=== PATIENT | female | born 1965 | race Caucasian/White ===

== ENCOUNTER → 2016-12-06 | Outpatient (CLI) | payer BC, OTHER ==
[~2016-12-06] MED LIST: CYAN100053 IJ; CYCL10TA45 PO; DOCU-143 PO; FERR-57 PO; FRS325T PO; FURO20TA4 PO; HYDR-3812 PO; HYDR25TA4 PO; LEVO150T6 PO; LEVO200T6 PO; LISI10TA2 PO; LORA10CA PO; METO25TA PO; NAPR-689 PO; PANT40TA PO; POTA10CA43 PO; TRIA1CAP4 PO
--- OUTSIDE RECORDS SUMMARY | 2016-12-06 11:04 | XMS REPORT | Continuity of Care Document ---
Author Author [facility] Organization [facility] Address Unknown Phone Unavailable Support Name Relationship Address Phone MORIAH HERRERA MD Caregiver [address] [address] ESTEPHANIA JOSE Next Of Kin [address] [place] [address] Insurance Providers Payer Name Policy Number Subscriber Name Relationship [facility] [id number] Aimee Chen 18 Self / Same As Patient Self Pay Pending [facility] Apprv [id number] Aimee Chen 18 Self / Same As Patient Advance Directives Directive Response Recorded Date/Time Advance Directives No 11/04/14 8:05am Health Care Power of Director Of Acquisitions No 10/28/14 9:32am Organ Donor Yes 11/04/14 8:05am Resuscitation Status Full Code 11/04/14 8:05am Problems Medical Problems Problem Onset Date Status Gastroesophageal reflux disease Unknown Active Chest pain Unknown Active Medications Medication Dose Route Sig Days/Qty Instructions Order Date Discontinued Date Status Levothyroxine Sodium 200 Mcg PO DAILY 30 Qty 05/29/14 Active Metoprolol Succinate 25 Mg PO BEDTIME 30 Qty 05/29/14 Active Pantoprazole Sodium 40 Mg PO DAILY 30 Qty 05/29/14 Active Potassium Chloride 10 Meq PO DAILY 30 Qty 05/29/14 Active Triamterene/Hydrochlorothiazid 1 Tab PO DAILY 30 Qty 05/29/14 Active Ferrous Sulfate 325 Mg PO DAILY 30 Qty 05/29/14 10/28/14 Discontinued Furosemide (Lasix) 20 Mg PO DAILY 30 Qty 05/29/14 Active Naproxen 1 Tab PO TWICE A DAY 60 Qty 05/29/14 08/17/14 Discontinued Cyclobenzaprine Hcl 10 Mg PO TWICE A DAY 20 Qty 05/29/14 10/28/14 Discontinued Loratadine 10 Mg PO DAILY 10/28/14 Active Social History Social History Problem Response Recorded Date/Time Alcohol Use Occasionally Uses 08/17/2014 8:44am Recreational Drug Use No 08/17/2014 8:44am Recent Foreign Travel No 11/04/2014 8:05am Sexually Transmitted Disease No 08/17/2014 8:44am Hospital Discharge Instructions No hospital discharge instructions. Plan of Care No plan of care. Functional Status Query Response Date Recorded Patient Orientation Person Place Time Situation November 04, 2014 8:10am Allergies, Adverse Reactions, Alerts Allergen Type Severity Reaction Status Last Updated Penicillins ([id number]) Allergy Unknown Active 01/12/09 Sulfa (Sulfonamide Antibiotics) ([id number]) Allergy Unknown Active 15/07 Immunizations No immunization records. Vital Signs Acute Vital Signs Vital Response Date/Time Temperature (Fahrenheit) 98.8 degrees F (97.6 - 99.5) Temperature (Calculated Celsius) 37.63897 degrees C (36.4 - 37.5) Temperature Source Tympanic Pulse Rate (adult) 71 bpm (60 - 90) Respiratory Rate 18 bpm (12 - 24) O2 Sat by Pulse Oximetry 98 % (88 - 100) Blood Pressure 131/80 mm Hg Pain Pain Intensity 3 Height (Feet) 5 feet Height (Inches) 4.00 inches Height (Calculated Centimeters) 162.684558 cm Weight (Pounds) 227 pounds Weight (Calculated Grams) 377858.469 gm Weight (Calculated Kilograms) 102.790651 kilograms Calculated BMI 38.96 Results Laboratory Results Test Name Result Units Flags Reference Collection Date/Time Result Date/ Time Comments White Blood Count 8.6 10^3/uL 4.3-11.0 10/28/2014 10:00am 10/28/2014 10 :17am Red Blood Count 4.66 10^6/uL 4.35-5.85 10/28/2014 10:00am 10/28/2014 10 :17am Hemoglobin 9.6 G/DL L 11.5-16.0 10/28/2014 10:00am 10/28/2014 10:17am Hematocrit 32 % L 35-52 10/28/2014 10:00am 10/28/2014 10:17am Mean Corpuscular Volume 69 FL L 80-99 10/28/2014 10:00am 10/28/2014 10: 17am Mean Corpuscular Hemoglobin 21 PG L 25-34 10/28/2014 10:00am 10/28/2014 10:17am Mean Corpuscular Hemoglobin Concent 30 G/DL L 32-36 10/28/2014 10:00am 10:17am Red Cell Distribution Width 16.6 % H 10.0-14.5 10/28/2014 10:00am 2013 10:17am Platelet Count 427 10^3/uL H 130-400 10/28/2014 10:00am 10/28/2014 10: 17am Mean Platelet Volume 9.2 FL 7.4-10.4 10/28/2014 10:00am 10/28/2014 10: 17am Neutrophils (%) (Auto) 73 % 42-75 10/28/2014 10:00am 10/28/2014 10: 17am Lymphocytes (%) (Auto) 19 % 12-44 10/28/2014 10:00am 10/28/2014 10: 17am Monocytes (%) (Auto) 6 % 0-12 10/28/2014 10:00am 10/28/2014 10:17am Eosinophils (%) (Auto) 2 % 0-10 10/28/2014 10:00am 10/28/2014 10:17am Basophils (%) (Auto) 1 % 0-10 10/28/2014 10:00am 10/28/2014 10:17am Neutrophils # (Auto) 6.3 X 10^3 1.8-7.8 10/28/2014 10:00am 10/28/2014 10:17am Lymphocytes # (Auto) 1.6 X 10^3 1.0-4.0 10/28/2014 10:00am 10/28/2014 10:17am Monocytes # (Auto) 0.5 X 10^3 0.0-1.0 10/28/2014 10:00am 10/28/2014 10: 17am Eosinophils # (Auto) 0.2 10^3/uL 0.0-0.3 10/28/2014 10:00am 10/28/2014 10:17am Basophils # (Auto) 0.1 10^3/uL 0.0-0.1 10/28/2014 10:00am 10/28/2014 10 :17am Sodium Level 135 MMOL/L 135-145 10/28/2014 10:00am 10/28/2014 10:36am Potassium Level 3.9 MMOL/L 3.6-5.0 10/28/2014 10:00am 10/28/2014 10: 36am Chloride Level 100 MMOL/L 98-107 10/28/2014 10:00am 10/28/2014 10:36am Carbon Dioxide Level 27 MMOL/L 21-32 10/28/2014 10:00am 10/28/2014 10: 36am Blood Urea Nitrogen 12 MG/DL 7-18 10/28/2014 10:00am 10/28/2014 10: 36am Creatinine 0.84 MG/DL 0.60-1.30 10/28/2014 10:00am 10/28/2014 10:36am BUN/Creatinine Ratio 14 10/28/2014 10:00am 10/28/2014 10:36am Estimat Glomerular Filtration Rate > 60 10/28/2014 10:00am 2013 10:36am GFR INTERPRETIVE DATA UNITS FOR ESTIMATED GFR (eGFR): mL/min/1.73 M2 REFERENCE RANGE FOR ESTIMATED GFR (eGFR) eGFR NORMAL eGFR >60 MODERATELY DECREASED eGFR 30-59 SEVERLY DECREASED eGFR 15-29 KIDNEY FAILURE <15 (OR DIALYSIS) Glucose Level 93 MG/DL 70-105 10/28/2014 10:00am 10/28/2014 10:36am Calcium Level 8.9 MG/DL 8.5-10.1 10/28/2014 10:00am 10/28/2014 10:36am Procedures No known history of procedures. Encounters Encounter Location Date/Time Registered Clinic Via [facility] 11/04/14 7:41am Registered Clinic Via [facility] 10/28/14 9:28am Registered Clinic Via [facility] 10/14/14 7:57am Registered Clinic Via [facility] 10/07/14 12:27pm Registered Clinic Via [facility] 10/07/14 8:46am Discharged Recurring Via [facility] 09/30/14 2:09pm
--- NOTE | 2016-12-06 12:09 | Diagnostic Imaging Report ---
EXAMINATION: Right breast ultrasound. INDICATION: Followup right breast mass. COMPARISON: 10/05/2015. FINDINGS: At the 9 o'clock zone 5 cm from the nipple, there is a hypoechoic mass with solid and cystic components. It measures 2.5 x 1.4 x 1.9 cm. This compares to measurements of 2 x 1.5 x 1.3 cm on the prior study of 10/05/2015. There is an adjacent nodule abutting it measuring 5 mm, similar to the prior study. There is also a hypoechoic lesion seen at the 7 o'clock zone 5 cm from the nipple measuring 6 mm in size with increased through transmission and no internal vascularity. This may relate to a complicated cyst. In the axilla, there is a slightly prominent lymph node with a preserved fatty hilum measuring up to 2.3 x 0.9 x 1.2 cm, probably a reactive benign lymph node. IMPRESSION: 1. There is a 2.5 cm right breast mass at the 9 o'clock zone which has enlarged from the prior exam. 2. Hypoechoic lesion measuring 6 mm at the 7 o'clock zone, possibly a complicated cyst. 3. The Pathology report from the needle biopsy performed on the dominant lesion found densely fibrous breast tissue which is a nonspecific diagnosis. A repeat biopsy or surgical excision would be recommended given the enlargement and nonspecific pathologic results. 4. The findings and recommendations were discussed with the patient at the time of the exam. The report was also faxed to Dr. Chiang' office by PARMJIT at 12:10 PM. ACR BI-RADS Category 4: Suspicious abnormality. Dictated by: Dictated on workstation # [id number]
--- NOTE | 2016-12-06 19:56 | Diagnostic Imaging Report ---
EXAMINATION: Bilateral breast digital diagnostic mammogram with CAD. The current study was also evaluated with a Computer Aided Detection (CAD) system. INDICATION: 10/04/15. FINDINGS: The breasts are composed of heterogenously dense parenchyma which may decrease mammographic sensitivity. Previously biopsied lesion in the outer aspect of the right breast is again noted with a biopsy clip seen. Overlying parenchyma is better on the MLO view with no definitive change. The left breast demonstrates a smoothly marginated mass stable from , compatible with benign etiology. IMPRESSION: No definite change in lateral right breast mass. Ultrasound followup is pending. ACR BI-RADS Category 0: Incomplete. (Needs additional imaging evaluation). Result letter will be mailed to the patient. Note: At least 10% of breast cancer is not imaged by mammography. Dictated by: Dictated on workstation # [id number]
== END ==
LOC: RAD 11:00
PROVIDERS: ATTEND Family Medicine
DX: R92.8 Other abnormal and inconclusive findings on diagnostic imaging of breast (principal)
CPT/HCPCS: 77066

== ENCOUNTER 2016-12-22 09:56 | Outpatient (CLI) | payer BC ==
[~2016-12-22] VITALS: Ht 162.6 cm; Wt 98.5 kg
[~2016-12-22 09:56] MED LIST changes: -DOCU-143 PO; -HYDR-3812 PO; -HYDR25TA4 PO; -LEVO150T6 PO
--- OUTSIDE RECORDS SUMMARY | 2016-12-22 10:00 | XMS REPORT | Continuity of Care Document ---
Author Author [facility] Organization [facility] Address Unknown Phone Unavailable Support Name Relationship Address Phone MORIAH HERRERA MD Caregiver [address] [address] ESTEPHANIA JOSE Next Of Kin [address] [place] [address] Insurance Providers Payer Name Policy Number Subscriber Name Relationship [facility] [id number] Aimee Chen 18 Self / Same As Patient Self Pay Pending [facility] Apprv [id number] Aimee Chen 18 Self / Same As Patient Advance Directives Directive Response Recorded Date/Time Advance Directives No 11/04/14 8:05am Health Care Power of Ev[employer] Business [employer] No 10/28/14 9:32am Organ Donor Yes 11/04/14 [...] Type Severity Reaction Status Last Updated Penicillins ([id number]) Allergy Unknown Active 01/12/09 Sulfa (Sulfonamide Antibiotics) ([id number]) Allergy Unknown Active 15/07 Immunizations No immunization records. Vital Signs Acute Vital Signs Vital Response Date/Time Temperature (Fahrenheit) 98.8 degrees F (97.6 - 99.5) Temperature (Calculated Celsius) 37.28793 degrees C (36.4 - 37.5) Temperature Source Tympanic Pulse Rate (adult) 71 bpm (60 - 90) Respiratory Rate 18 bpm (12 - 24) O2 Sat by Pulse Oximetry 98 % (88 - 100) Blood Pressure 131/80 mm Hg Pain Pain Intensity 3 Height (Feet) 5 feet Height (Inches) 4.00 inches Height (Calculated Centimeters) 162.234554 cm Weight (Pounds) 227 pounds Weight (Calculated Grams) 995785.469 gm Weight (Calculated Kilograms) 102.781626 kilograms Calculated BMI 38.96 Results Laboratory Results [...] Encounters Encounter Location Date/Time Registered Clinic Via [facility] 11/04/14 7:41am Registered Clinic Via [facility] 10/28/14 9:28am Registered Clinic Via [facility] 10/14/14 7:57am Registered Clinic Via [facility] 10/07/14 12:27pm Registered Clinic Via [facility] 10/07/14 8:46am Discharged Recurring Via [facility] 09/30/14 2:09pm
[2016-12-22 10:04] VITALS: BP 117/68
[2016-12-22] MEDS ORDERED: HYDR25TA4 PO (10:09)
[2016-12-22] MEDS ORDERED: LEVO150T6 PO (10:09)
[2016-12-22 10:33] LABS: BASOPHILS # (AUTO) 0.1 10^3/uL (0.0-0.1); BASOPHILS % (AUTO) 1 % (0-10); EOSINOPHILS # (AUTO) 0.2 10^3/uL (0.0-0.3); EOSINOPHILS % (AUTO) 3 % (0-10); LYMPHOCYTES # (AUTO) 1.4 X 10^3 (1.0-4.0); LYMPHOCYTES % (AUTO) 21 % (12-44); MEAN CORPUSCULAR HEMOGLOBIN 19 PG (25-34); MEAN CORPUSCULAR HGB CONC 29 G/DL (32-36); MEAN CORPUSCULAR VOLUME 64 FL (80-99); MEAN PLATELET VOLUME 9.6 FL (7.4-10.4); MONOCYTES # (AUTO) 0.5 X 10^3 (0.0-1.0); MONOCYTES % (AUTO) 8 % (0-12); NEUTROPHILS # (AUTO) 4.6 X 10^3 (1.8-7.8); NEUTROPHILS % (AUTO) 68 % (42-75); PLATELET COUNT 426 10^3/uL (130-400); RED BLOOD COUNT 4.51 10^6/uL (4.35-5.85); WHITE BLOOD COUNT 6.7 10^3/uL (4.3-11.0)
== END 2016-12-22 10:25 | disposition home or self-care (01) ==
LOC: PREOP 09:56
PROVIDERS: ATTEND Surgery
DX: Z01.812 Encounter for preprocedural laboratory examination (principal); Z11.2 Encounter for screening for other bacterial diseases; N63 Unspecified lump in breast
CPT/HCPCS: 36415; 85025; 87081

== ENCOUNTER 2016-12-28 07:52 | Day surgery (SDC) | payer BC, OTHER ==
[~2016-12-28] VITALS: Ht 162.6 cm; Wt 98.5 kg
[~2016-12-28 07:52] MED LIST changes: +HYDR25TA4 PO; +LEVO150T6 PO
--- OUTSIDE RECORDS SUMMARY | 2016-12-28 07:56 | XMS REPORT | Continuity of Care Document ---
Author Author [facility] Organization [facility] Address Unknown Phone Unavailable Support Name Relationship Address Phone MORIAH HERRERA MD Caregiver [address] [address] ESTEPHANIA JOSE Next Of Kin [address] [place] [address] Insurance Providers Payer Name Policy Number Subscriber Name Relationship [facility] [id number] Aimee Chen 18 Self / Same As Patient Self Pay Pending [facility] Apprv [id number] Aimee Chen 18 Self / Same As Patient Advance Directives Directive Response Recorded Date/Time Advance Directives No 11/04/14 8:05am Health Care Power of Rn Hemodialysis No 10/28/14 9:32am Organ Donor Yes 11/04/14 [...] Type Severity Reaction Status Last Updated Penicillins ([id number]) Allergy Unknown Active 01/12/09 Sulfa (Sulfonamide Antibiotics) ([id number]) Allergy Unknown Active 15/07 Immunizations No immunization records. Vital Signs Acute Vital Signs Vital Response Date/Time Temperature (Fahrenheit) 98.8 degrees F (97.6 - 99.5) Temperature (Calculated Celsius) 37.72730 degrees C (36.4 - 37.5) Temperature Source Tympanic Pulse Rate (adult) 71 bpm (60 - 90) Respiratory Rate 18 bpm (12 - 24) O2 Sat by Pulse Oximetry 98 % (88 - 100) Blood Pressure 131/80 mm Hg Pain Pain Intensity 3 Height (Feet) 5 feet Height (Inches) 4.00 inches Height (Calculated Centimeters) 162.698050 cm Weight (Pounds) 227 pounds Weight (Calculated Grams) 196885.469 gm Weight (Calculated Kilograms) 102.725850 kilograms Calculated BMI 38.96 Results Laboratory Results [...] Encounters Encounter Location Date/Time Registered Clinic Via [facility] 11/04/14 7:41am Registered Clinic Via [facility] 10/28/14 9:28am Registered Clinic Via [facility] 10/14/14 7:57am Registered Clinic Via [facility] 10/07/14 12:27pm Registered Clinic Via [facility] 10/07/14 8:46am Discharged Recurring Via [facility] 09/30/14 2:09pm
[2016-12-28] MEDS ORDERED: LIDOCAINE 1% INJ 20 ML (XYLOCAINE) VIAL ONE ×2 (07:58→09:48)
--- OUTSIDE RECORDS SUMMARY | 2016-12-28 07:58 | XMS REPORT | Continuity of Care Document ---
Author Author [facility] Organization [facility] Address Unknown Phone Unavailable Support Name Relationship Address Phone MORIAH HERRERA MD Caregiver [address] [address] [place]IA JOSE Next Of Kin [address] [place] [address] Insurance Providers Payer Name Policy Number Subscriber Name Relationship [facility] [id number] Aimee Chen 18 Self / Same As Patient Self Pay Pending [facility] Apprv [id number] Aimee Chen 18 Self / Same As Patient Advance Directives Directive Response Recorded Date/Time Advance Directives No 11/04/14 8:05am Health Care Power of Mailmaster No 10/28/14 9:32am Organ Donor Yes 11/04/14 [...] Type Severity Reaction Status Last Updated Penicillins ([id number]) Allergy Unknown Active 01/12/09 Sulfa (Sulfonamide Antibiotics) ([id number]) Allergy Unknown Active 15/07 Immunizations No immunization records. Vital Signs Acute Vital Signs Vital Response Date/Time Temperature (Fahrenheit) 98.8 degrees F (97.6 - 99.5) Temperature (Calculated Celsius) 37.66474 degrees C (36.4 - 37.5) Temperature Source Tympanic Pulse Rate (adult) 71 bpm (60 - 90) Respiratory Rate 18 bpm (12 - 24) O2 Sat by Pulse Oximetry 98 % (88 - 100) Blood Pressure 131/80 mm Hg Pain Pain Intensity 3 Height (Feet) 5 feet Height (Inches) 4.00 inches Height (Calculated Centimeters) 162.412788 cm Weight (Pounds) 227 pounds Weight (Calculated Grams) 756973.469 gm Weight (Calculated Kilograms) 102.261979 kilograms Calculated BMI 38.96 Results Laboratory Results [...] Encounters Encounter Location Date/Time Registered Clinic Via [facility] [address] 11/04/14 7:41am Registered Clinic Via [facility] [address] 10/28/14 9:28am Registered Clinic [facility] [address] 10/14/14 7:57am Registered Clinic [facility] [address] 10/07/14 12:27pm Registered Clinic Via [facility] [address] 10/07/14 8:46am Discharged Recurring Via [facility] [address] 09/30/14 2:09pm
[2016-12-28] MEDS ORDERED: LACTATED RINGERS 1,000 ML IV PRN (08:25)
[2016-12-28 08:30] VITALS: BP 120/78
[2016-12-28] MEDS ORDERED: CLINDAMYCIN 600 MG/50 ML IVPB 50 ML IV ONE ×2 (08:51→09:15)
--- NOTE | 2016-12-28 08:58 | Progress Note-Pre Operative ---
Pre-Operative Progress Note H&P Reviewed The H&P was reviewed, patient examined and no changes noted. Date H&P Reviewed: Dec 28, 2016 Time H&P Reviewed: 08:58 Pre-Operative Diagnosis: right breast mass ERLINDA STOVALL DO Dec 28, 2016 8:58 am
[2016-12-28] MEDS ORDERED: LIDOCAINE 1% INJ 20 ML (XYLOCAINE) VIAL INJ ONE (09:15)
[2016-12-28] MEDS ORDERED: fentaNYL INJECTION 100 MCG/2 ML AMP ONE (09:45)
[2016-12-28] MEDS ORDERED: proPOfol 200 MG/20 ML (DIPRIVAN) VIAL IV ONE (09:45)
[2016-12-28] MEDS ORDERED: LACTATED RINGERS 1,000 ML IV ONE ×2 (09:45→11:03)
[2016-12-28] MEDS ORDERED: MIDAZOLAM 2 MG/2 ML (VERSED) VIAL ONE (09:45)
[2016-12-28] MEDS ORDERED: LIDOCAINE PF 2% 10 ML (XYLOCAINE) AMP ONE (09:45)
[2016-12-28] MEDS ORDERED: ONDANSETRON 4 MG/2 ML (SDV) Z0FRAN ONE (09:45)
[2016-12-28] MEDS ORDERED: SEVOFLURANE (ULTANE) 15 ML INHAL SOLN ONE ×4 (09:45→11:03)
[2016-12-28] MEDS ORDERED: BUPIVACAINE 0.5% 30 ML (SENSORCAINE) VIAL ONE (09:48)
--- NOTE | 2016-12-28 10:40 | Diagnostic Imaging Report ---
PROCEDURE: Ultrasound-guided hookwire needle localization of breast mass . INDICATION: Right breast mass. CONSENT: Informed consent was obtained from the patient. The risks, benefits, potential complications and alternatives were reviewed and all questions answered to the patient's satisfaction. FINDINGS: Ultrasound images demonstrate a right breast mass. It is at 9:00 zone 5 cm from the nipple. PROCEDURE: After sterile preparation and draping, 1% lidocaine was utilized for local anesthesia. A hookwire introducer needle was advanced under live ultrasound guidance to the level of the lesion from a lateral to medial approach. Good needle position was documented with ultrasound images. The hookwire was deployed and the needle withdrawn, simultaneously. The patient tolerated the procedure well with no immediate complications. IMPRESSION: Successful ultrasound hookwire needle localization of 9:00 breast mass. Dictated by: Dictated on workstation # [id number]
--- NOTE | 2016-12-28 10:54 | Diagnostic Imaging Report ---
EXAMINATION: Specimen radiograph of breast lumpectomy biopsy post hookwire needle localization placement. INDICATION: Check adequacy of right breast hookwire guided excisional biopsy. FINDINGS: The mass and adjacent biopsy clip of interest appears to be present in the specimen and therefore the specimen is considered adequate. IMPRESSION: Specimen radiograph demonstrates the hookwire and surrounding specimen that appears to contain right breast mass. Pathology is pending. Dictated by: Dictated on workstation # [id number]
[2016-12-28] MEDS ORDERED: HYDR-3812 PO (11:04)
[2016-12-28] MEDS ORDERED: DOCU-143 PO (11:04)
[2016-12-28] MEDS ORDERED: morphine INJ 10 MG/ML 1ML (SYR OR VIAL) ONE (11:04)
--- NOTE | 2016-12-28 11:07 | Discharge Inst-Simple/Standard ---
Discharge Inst-Standard Discharge Medications New, Converted or Re-Newed RX: RX on Chart Patient Instructions/Follow Up Plan of Care/Instructions/FU: follow up with Dr. Wu in 2 weeks. Take medication as directed. Activity as Tolerated: No Discharge Diet: No Restrictions Other Inst to Patient Follow up Appt: Make appointment for 2 weeks. Instructions: No lifting greater than 10 pounds. No strenuous activity. May shower in 24 hours, no tub bath or soaking. Use incentive spirometer at home as directed. No Smoking Skin/Wound Care: May remove bandages. You need to leave the glue over incision on they will fall off on their own. Symptoms to Report: Appetite Changes, Extremity Discoloration, Numbness/Tingling, Swelling Increased , Bleeding Excessive, Eyesight Changes, Pain Increased, Urine Color Change, Constipation(Persistent), Fever over 101 degree F, Pain/Pressure in chest, Urinating Difficulty, Cough Up/Vomit Blood, Heart Beat Irreg/Pounding, Pain/ Pressure in jaw, Vaginal Bleeding Increase, Cramps in feet or legs, Lightheadedness, Pain/Pressure in shoulder, Diarrhea(Persistent), Memory Changes Suddenly, Questions/Concerns, Weight gain consecutive days, Dizziness/ Fainting, Nausea/Vomiting, Shortness of Breath, Weight gain over 2 pounds If questions or concerns contact your physician Or seek help at emergency department. TIRSO JARVIS APRN Dec 28, 2016 11:07
--- NOTE | 2016-12-28 11:14 | Progress Note-Post Operative ---
Post-Operative Progess Note Ndt Inspector Obbala Nwagwu Pre-Operative Diagnosis right breast mass Post-Operative Diagnosis breast mass x 2 Post-Op Procedure Note Date of Procedure: Dec 28, 2016 Name of Procedure: excisional biopsy wire localized right breast and excisional biopsy x 1 right breast Procedure Note/Findings see note Anesthesia Type gen Estimated blood loss (mL): minimal Specimen(s) collected right breast mass and wire x 1 right breast mass ERLINDA STOVALL DO Dec 28, 2016 11:14 am
[2016-12-28 11:55] VITALS: BP 133/78
[2016-12-28 12:25] VITALS: BP 126/80
[2016-12-28 12:55] VITALS: BP 130/78
[2016-12-28 13:10] VITALS: BP 125/78
--- NOTE | 2016-12-28 20:34 | Diagnostic Imaging Report ---
EXAMINATION: Right breast diagnostic mammogram. The current study was also evaluated with a Computer Aided Detection (CAD) system. INDICATION: Right breast mass. FINDINGS: There is a right breast mass with a wire localization placed through it in good position. IMPRESSION: The wire needle localization is in good position through the lateral mid depth right breast mass. Dictated by: Dictated on workstation # [id number]
--- NOTE | 2016-12-29 13:33 | OPERATIVE REPORT ---
PROCEDURE PHYSICIAN: ERLINDA STOVALL DATE OF PROCEDURE: 12/28/2016 PREOPERATIVE DIAGNOSIS: Right breast mass. POSTOPERATIVE DIAGNOSIS: Right breast mass. POSTOPERATIVE DIAGNOSIS: Breast mass x2. PROCEDURE: 1. Excisional biopsy wire localized right breast. 2. Excisional biopsy x1, right breast. ANESTHESIA: General. ESTIMATED BLOOD LOSS: Minimal. COMPLICATIONS: None. RADIO FREQUENCY ENGINEER: Michael Whitfield who assisted in retraction, dissection, and closure. ESTIMATED BLOOD LOSS: Minimal. COMPLICATIONS: None. INDICATIONS: The patient is a 51-year-old female who has had right breast mass that has been continued be followed and previously biopsied. There is slight change. The patient was offered interventional radiology biopsy or excisional biopsy. The patient wished to proceed with excisional biopsy wire localized. She understands the risks and benefits of the procedure and wished to proceed with the procedure. Consent was signed on the chart. PROCEDURE: The patient was taken to operating suite. After having wire localization. She was taken the operating suite. She was prepped and draped in sterile fashion. A surgical pause was performed. A local anesthetic of 0.5% Marcaine and 1% lidocaine at 50:50 ratio was used to anesthetize the area. The skin incision was made and the wire was then incorporated into the incision. Cautery dissection and blunt dissection was used to dissect around the wire down to the mass which then was dissected around completely removing the mass and the wire in its entirety. This was then sent to radiology which confirmed removal of the wire and mass. The area was then palpated inferiorly. In the wound, there is a small palpable mass that almost felt cystic. It is approximately a centimeter in diameter, which cautery dissection was used to dissect around it removing it in its entirety. This was sent with pathology. The wound was then irrigated with sterile water. Hemostasis had been achieved. The subcutaneous tissues were then reapproximated using 3-0 Vicryl. Skin was then closed using 4-0 Vicryl in a running subcuticular fashion. The area was then washed and dried. A total of 20 mL of 0.5% Marcaine and 1% lidocaine at 50:50 ratio was used to anesthetize the area. Dermabond was then placed over the incision. The patient tolerated the procedure well without any complications. She was taken to recovery room in stable condition. Job ID: [id number] Dictated Date: 12/28/2016 11:18:47 Ready To Wear Department Manager Date: 12/29/2016 12:57:31 / dennis
== END 2016-12-28 13:05 | disposition home or self-care (01) ==
LOC: RAD 07:52
PROVIDERS: ATTEND Surgery
DX: N60.91 Unspecified benign mammary dysplasia of right breast (principal)
CPT/HCPCS: 19285; 76098; 84703; 88305

== ENCOUNTER → 2017-05-09 | Outpatient (CLI) | payer BC, OTHER ==
[~2017-05-09] MED LIST changes: +DOCU-143 PO; +HYDR-3812 PO
== END ==
LOC: CARD 13:17
PROVIDERS: ATTEND Internal Medicine Cardiovascular Disease
DX: R06.09 Other forms of dyspnea (principal); R00.2 Palpitations; I49.3 Ventricular premature depolarization; G47.33 Obstructive sleep apnea (adult) (pediatric)
CPT/HCPCS: 93306

== ENCOUNTER 2017-06-22 11:41 | Outpatient (RCR) | payer BC, OTHER ==
[~2017-06-22 11:41] MED LIST changes: +DEXAMETHASONE 4 MG/ML SYR (FOR IONTOPHORESIS) TOP SCH
[2017-07-11] MEDS ORDERED: METO-270 PO (11:05)
[2017-07-11] MEDS ORDERED: OMEP40CA36 PO (11:05)
[2017-07-19] MEDS ORDERED: DOCU100C37 PO (17:57)
[2017-07-19] MEDS ORDERED: IBUP-1773 PO (17:57)
[2017-07-19] MEDS ORDERED: SIME80TA16 PO (17:57)
[2017-07-19] MEDS ORDERED: HYDR-3816 PO (17:57)
[2017-07-20] MEDS ORDERED: CEPH-507 PO (08:43)
== END 2017-07-26 | disposition home or self-care (01) ==
PROVIDERS: ATTEND Family Medicine
DX: M77.01 Medial epicondylitis, right elbow (principal); M77.02 Medial epicondylitis, left elbow

== ENCOUNTER 2017-06-25 10:11 | Outpatient (RCR) | payer BC ==
[2017-05-14 14:01] LABS: BASOPHILS # (AUTO) 0.1 10^3/uL (0.0-0.1); BASOPHILS % (AUTO) 1 % (0-10); EOSINOPHILS # (AUTO) 0.2 10^3/uL (0.0-0.3); EOSINOPHILS % (AUTO) 3 % (0-10); LYMPHOCYTES # (AUTO) 1.8 X 10^3 (1.0-4.0); LYMPHOCYTES % (AUTO) 26 % (12-44); MEAN CORPUSCULAR HEMOGLOBIN 17 PG (25-34); MEAN CORPUSCULAR HGB CONC 27 G/DL (32-36); MEAN CORPUSCULAR VOLUME 62 FL (80-99); MEAN PLATELET VOLUME 9.5 FL (7.4-10.4); MONOCYTES # (AUTO) 0.7 X 10^3 (0.0-1.0); MONOCYTES % (AUTO) 10 % (0-12); NEUTROPHILS % (AUTO) 61 % (42-75); PLATELET COUNT 451 10^3/uL (130-400); RED BLOOD COUNT 4.33 10^6/uL (4.35-5.85); RED CELL DISTRIBUTION WIDTH 20.6 % (10.0-14.5); WHITE BLOOD COUNT 6.7 10^3/uL (4.3-11.0)
[2017-05-14 14:08] LABS: ALANINE AMINOTRANSFERASE 18 U/L (0-55); ALBUMIN 3.8 GM/DL (3.2-4.5); ANION GAP 8 MMOL/L (5-14); ASPARTATE AMINO TRANSFERASE 15 U/L (5-34); BILIRUBIN,TOTAL 0.3 MG/DL (0.1-1.0); BLOOD UREA NITROGEN 8 MG/DL (7-18); BUN/CREATININE RATIO 9; CALCIUM 8.9 MG/DL (8.5-10.1); CARBON DIOXIDE 28 MMOL/L (21-32); CHLORIDE 102 MMOL/L (98-107); CREATININE SERUM 0.92 MG/DL (0.60-1.30); GFR ESTIMATED > 60; GLUCOSE 90 MG/DL (70-105); POTASSIUM 3.6 MMOL/L (3.6-5.0); SODIUM 138 MMOL/L (135-145); TOTAL PROTEIN 7.1 GM/DL (6.4-8.2)
[2017-05-16 15:32] LABS: %SAT TOTAL IRON BINDING CAPIC 2 % (15-50); TIBC <429 ug/dL (280-380)
[2017-05-17 06:40] LABS: FERRITIN <1.0 ng/mL (15.0-150.0); UIBC 419 ug/dL
[~2017-06-25 10:11] MED LIST changes: -CEPH-507 PO; -DOCU100C37 PO; +FERRIC CARBOXYMALTOSE (CANCER) 750 MG in NS (IVPB) 250 ML IV SCH; -HYDR-3816 PO; -IBUP-1773 PO; -METO-387 PO; -OMEP40CA36 PO; -REGADENOSON 0.4 MG/5 ML SYR (LEXISCAN) IV ONE; -SIME80TA16 PO
[2017-06-25 10:37] LABS: BASOPHILS % (AUTO) 1 % (0-10); EOSINOPHILS # (AUTO) 0.1 10^3/uL (0.0-0.3); EOSINOPHILS % (AUTO) 2 % (0-10); LYMPHOCYTES # (AUTO) 1.5 X 10^3 (1.0-4.0); LYMPHOCYTES % (AUTO) 23 % (12-44); MEAN CORPUSCULAR HEMOGLOBIN 24 PG (25-34); MEAN CORPUSCULAR HGB CONC 32 G/DL (32-36); MEAN CORPUSCULAR VOLUME 76 FL (80-99); MEAN PLATELET VOLUME 9.7 FL (7.4-10.4); MONOCYTES # (AUTO) 0.6 X 10^3 (0.0-1.0); MONOCYTES % (AUTO) 9 % (0-12); NEUTROPHILS # (AUTO) 4.2 X 10^3 (1.8-7.8); NEUTROPHILS % (AUTO) 66 % (42-75); PLATELET COUNT 250 10^3/uL (130-400); RED BLOOD COUNT 5.58 10^6/uL (4.35-5.85); WHITE BLOOD COUNT 6.4 10^3/uL (4.3-11.0)
[2017-06-25 10:59] LABS: ALANINE AMINOTRANSFERASE 49 U/L (0-55); ALBUMIN 4.2 GM/DL (3.2-4.5); ANION GAP 14 MMOL/L (5-14); ASPARTATE AMINO TRANSFERASE 26 U/L (5-34); BILIRUBIN,TOTAL 0.5 MG/DL (0.1-1.0); BLOOD UREA NITROGEN 12 MG/DL (7-18); BUN/CREATININE RATIO 14; CALCIUM 9.3 MG/DL (8.5-10.1); CARBON DIOXIDE 22 MMOL/L (21-32); CHLORIDE 103 MMOL/L (98-107); CREATININE SERUM 0.87 MG/DL (0.60-1.30); GFR ESTIMATED > 60; GLUCOSE 110 MG/DL (70-105); POTASSIUM 3.2 MMOL/L (3.6-5.0); SODIUM 139 MMOL/L (135-145); TOTAL PROTEIN 7.8 GM/DL (6.4-8.2)
[2017-07-11] MEDS ORDERED: METO-270 PO (11:05)
[2017-07-11] MEDS ORDERED: OMEP40CA36 PO (11:05)
[2017-07-19] MEDS ORDERED: HYDR-3816 PO (17:57)
[2017-07-19] MEDS ORDERED: DOCU100C37 PO (17:57)
[2017-07-19] MEDS ORDERED: SIME80TA16 PO (17:57)
[2017-07-19] MEDS ORDERED: IBUP-1773 PO (17:57)
[2017-07-20] MEDS ORDERED: CEPH-507 PO (08:43)
== END 2017-07-28 | disposition home or self-care (01) ==
LOC: ONC 10:11
PROVIDERS: ATTEND Internal Medicine Hematology & Oncology
DX: D50.9 Iron deficiency anemia, unspecified (principal); K21.9 Gastro-esophageal reflux disease without esophagitis; D25.9 Leiomyoma of uterus, unspecified; E03.9 Hypothyroidism, unspecified; R06.09 Other forms of dyspnea; E66.9 Obesity, unspecified; D47.3 Essential (hemorrhagic) thrombocythemia
CPT/HCPCS: 36415; 80053; 82728; 83540; 85025; 96365; 99213; 99214

== ENCOUNTER → 2017-06-25 | Outpatient (CLI) | payer BC, OTHER ==
[~2017-06-25] VITALS: Ht 162.6 cm; Wt 98.9 kg
[~2017-06-25] MED LIST changes: +CEPH-507 PO; -DEXAMETHASONE 4 MG/ML SYR (FOR IONTOPHORESIS) TOP SCH; +DOCU100C37 PO; +HYDR-3816 PO; +IBUP-1773 PO; +METO-387 PO; +OMEP40CA36 PO; +REGADENOSON 0.4 MG/5 ML SYR (LEXISCAN) IV ONE; +SIME80TA16 PO
[2017-06-25] MEDS: CATHETER FLUSH 10 ML SYR IV PRN ×2 (07:54→09:10)
[2017-06-25 09:09] VITALS: BP 137/72
--- NOTE | 2017-06-26 09:41 | STRESS TEST ---
DATE OF SERVICE: 06/25/2017 LEXISCAN MYOVIEW STRESS TEST REPORT REFERRING PHYSICIAN: Dr. Sayra Chiang. Baseline heart rate is 60. Baseline blood pressure is 137/72. Baseline EKG is sinus rhythm with ventricular trigeminy. IN SUMMARY: The patient was injected with 10.11 mCi of technetium-99 Myoview and the resting images were obtained. Then, the patient received 0.4 mg of Lexiscan followed by 31.5 mCi of technetium-99 Myoview. Throughout the test, there were no EKG changes. The resting and stress images were reviewed and compared in the short axis, horizontal long axis, and vertical long axis views. Review of the images showed breast attenuation with mild decreased uptake at the anteroapical segment with no significant reversibility. SSS is 1, SDS 1, TID value 0.92. On the gated images, the left ventricle appeared to be normal size with normal contractility. Calculated ejection fraction 62%. CONCLUSION: 1. The patient tolerated Lexiscan well. 2. Breast attenuation with typical female pattern with no significant ischemia or infarction on SPECT images. 3. Normal left ventricular size with normal contractility. Calculated ejection fraction 62%. 4. Baseline sinus rhythm with ventricular trigeminy noted throughout test. Job ID: [id number] DocumentID: [id number] Dictated Date: 06/25/2017 18:34:11 Radio Interference Supervisor Date: 06/26/2017 06:34:33 Dictated By: TEMITOPE CHING MD
== END ==
LOC: CARD 07:29
PROVIDERS: ATTEND Internal Medicine Cardiovascular Disease
DX: R06.09 Other forms of dyspnea (principal); R00.2 Palpitations; I49.3 Ventricular premature depolarization; G47.33 Obstructive sleep apnea (adult) (pediatric)
CPT/HCPCS: 78452; 93017

== ENCOUNTER → 2017-07-09 | Outpatient (CLI) | payer BC, OTHER ==
[~2017-07-09] MED LIST changes: -FERRIC CARBOXYMALTOSE (CANCER) 750 MG in NS (IVPB) 250 ML IV SCH; +METO-270 PO; +OMEP40CA36 PO
--- NOTE | 2017-07-09 13:47 | Diagnostic Imaging Report ---
Transabdominal and transvaginal pelvic ultrasound. INDICATION: Abnormal uterine bleeding. FINDINGS: The uterus is 11.5 x 8.7 x 8.6 cm. It is lobulated and heterogeneous with an anterior fibroid measuring 6.0 x 5.9 x 5.7 cm. When compared to 02/10/2015, there has been enlargement of this fibroid which measured previously up to 4.8 cm. The endometrial stripe is 8 mm in thickness. The right ovary is 3.4 x 2.5 x 2.6 cm. There is a dominant follicle seen within it. It measures about 2.3 cm. There is arterial and venous waveforms in the ovarian tissue around it. The left ovary is not seen, probably obscured by bowel loops. IMPRESSION: 1. Enlarged anterior uterine fibroid measuring at this time up to 6 cm in size. 2. The left ovary is not seen. Dictated by: Dictated on workstation # [id number]
== END ==
LOC: RAD 10:09
PROVIDERS: ATTEND Obstetrics & Gynecology
DX: D25.9 Leiomyoma of uterus, unspecified (principal)
CPT/HCPCS: 76830; 76856

== ENCOUNTER 2017-07-11 09:10 | Outpatient (CLI) | payer BC, OTHER ==
[~2017-07-11] VITALS: Ht 162.6 cm; Wt 100.7 kg
[~2017-07-11 09:10] MED LIST changes: -METO-270 PO; -OMEP40CA36 PO
[2017-07-11 09:26] VITALS: BP 128/67
[2017-07-11] MEDS ORDERED: METO-387 PO (11:05)
[2017-07-11] MEDS ORDERED: OMEP40CA36 PO (11:05)
== END 2017-07-11 09:45 | disposition home or self-care (01) ==
LOC: PREOP 09:10
PROVIDERS: ATTEND Obstetrics & Gynecology
DX: Z01.818 Encounter for other preprocedural examination (principal); D25.9 Leiomyoma of uterus, unspecified; D50.0 Iron deficiency anemia secondary to blood loss (chronic)
CPT/HCPCS: 87081

== ENCOUNTER 2017-07-19 09:55 | Day surgery (SDC) | payer BC, OTHER ==
[~2017-07-19] VITALS: Ht 162.6 cm; Wt 100.7 kg
[~2017-07-19 09:55] MED LIST changes: +METO-387 PO; +OMEP40CA36 PO
[2017-07-19 10:00] VITALS: BP 135/82
[2017-07-19] MEDS ORDERED: metroNIDAZOLE 500 MG/100 ML IVPB (PRE-MIX) IV ONE (10:15)
[2017-07-19] MEDS ORDERED: ceFAZolin 2 GM/50 ML NS 50 ML ONE (10:24)
[2017-07-19] MEDS ORDERED: LIDOCAINE PF 2% 5 ML (XYLOCAINE) VIAL ONE (10:28)
[2017-07-19] MEDS ORDERED: proPOfol 200 MG/20 ML (DIPRIVAN) VIAL IV ONE (10:28)
[2017-07-19] MEDS ORDERED: fentaNYL INJECTION 100 MCG/2 ML AMP ONE ×2 (10:28→12:43)
[2017-07-19] MEDS ORDERED: ONDANSETRON 4 MG/2 ML (SDV) Z0FRAN ONE (10:28)
[2017-07-19] MEDS ORDERED: SEVOFLURANE (ULTANE) 15 ML INHAL SOLN ONE ×11 (10:28→13:22)
[2017-07-19] MEDS ORDERED: LACTATED RINGERS 1,000 ML IV ONE (10:28)
[2017-07-19] MEDS ORDERED: DEXAMETHASONE 10 MG/ML (DECADRON) 1 ML VIAL ONE ×2 (10:28→10:30)
[2017-07-19] MEDS ORDERED: MIDAZOLAM 2 MG/2 ML (VERSED) VIAL IV ONE (10:30)
[2017-07-19] MEDS ORDERED: FAMOTIDINE 20MG/2ML IV (PEPCID) IV ONE (10:30)
[2017-07-19] MEDS ORDERED: BUPIVACAINE 0.25% 30 ML (SENSORCAINE) VIAL ONE (10:32)
[2017-07-19] MEDS: LACTATED RINGERS 1,000 ML IV PRN ×2 (10:39→12:09)
--- OUTSIDE RECORDS SUMMARY | 2017-07-19 10:54 | XMS REPORT ---
Author Author FABIOLA DODD Organization [employer] Address Unknown Phone Unavailable Care Team Providers Care And Taxi Instructor Bus Trolley Name Role Phone FABIOLA DODD CP Unavailable Allergies No Known Allergies Problems Problem Type Condition Code Onset Dates Condition Status Problem Fatigue R53.83 Active Problem History of anemia Z86.2 Active Problem Edema R60.9 Active Problem Palpitation R00.2 Active Problem Chest discomfort R07.89 Active Problem Shortness of breath R06.02 Active Problem Acquired hypothyroidism E03.9 Active Problem Gastroesophageal reflux disease without esophagitis K21.9 Active Problem Iron deficiency anemia, unspecified iron deficiency anemia type D50.9 Active Problem Noncompliance w/medication treatment due to intermit use of medication Z91.14 Active Medications Medication Code System Code Instructions Start Date End Date Status Dosage Hydrochlorothiazide [facility] [address]-56 25 MG Orally Once a day January 04, 2016 1 tablet Levothyroxine Sodium [facility] [address]-74 150 MCG Orally Once a day 1 tablet Results No Known Results Summary Purpose [employer] Submission
--- NOTE | 2017-07-19 10:58 | Progress Note-Pre Operative ---
Pre-Operative Progress Note H&P Reviewed The H&P was reviewed, patient examined and no changes noted. Date Seen by Provider: Jul 19, 2017 Time Seen by Provider: 10:45 Date H&P Reviewed: Jul 19, 2017 Time H&P Reviewed: 10:45 Pre-Operative Diagnosis: AUB, Fibroid uterus, Iron deficency anemia, BMI 37 NESTOR STONER DO Jul 19, 2017 10:58 am
[2017-07-19] MEDS ORDERED: ceFAZolin 2 GM/NS 50 ML IV ONE (11:00)
[2017-07-19] MEDS ORDERED: LACTATED RINGERS 1,000 ML IV SCH (11:05)
[2017-07-19] MEDS ORDERED: ANTACID SUSP 30 ML UDC (MYLANTA) PO PRN (11:15)
[2017-07-19] MEDS ORDERED: ZOLPIDEM 5 MG (AMBIEN) TAB PO PRN (11:15)
[2017-07-19] MEDS ORDERED: DOCUSATE SODIUM 100 MG (COLACE) CAP PO PRN (11:15)
[2017-07-19] MEDS ORDERED: CHLORASEPTIC LOZENGE MM PRN (11:15)
[2017-07-19] MEDS ORDERED: SIMETHICONE 80 MG (MYLICON) CHEW PO PRN (11:15)
[2017-07-19] MEDS ORDERED: ONDANSETRON 4 MG/2 ML (SDV) Z0FRAN IV PRN (11:15)
[2017-07-19] MEDS ORDERED: KETOROLAC 30 MG/ML VIAL IV PRN (11:15)
[2017-07-19] MEDS ORDERED: INDIGO CARMINE 8 MG/ML 5 ML AMP ONE (11:57)
[2017-07-19] MEDS ORDERED: ROCURONIUM 50 MG/5 ML (ZEMURON) VIAL IV ONE ×2 (12:23)
[2017-07-19] MEDS ORDERED: morphine INJ 10 MG/ML 1ML (SYR OR VIAL) ONE (13:08)
[2017-07-19] MEDS ORDERED: NEOSTIGMINE (BLOXIVERZ ) 1 MG/1ML 10 ML VIAL ONE (13:54)
[2017-07-19] MEDS ORDERED: GLYCOPYRROLATE 0.2 MG/ML (ROBINUL) 2 ML VIAL ONE (13:54)
[2017-07-19] MEDS: morphine INJ 10 MG/ML 1ML (SYR OR VIAL) IVP PRN ×2 (14:10→14:18)
[2017-07-19] MEDS ORDERED: KETOROLAC 30 MG/ML VIAL IVP ONE (14:15)
[2017-07-19] MEDS ORDERED: ONDANSETRON 4 MG/2 ML (SDV) Z0FRAN IVP PRN (14:15)
[2017-07-19] MEDS: HYDROmorphone (DILAUDID) 2 MG/ML VIAL IVP PRN ×2 (14:27→14:37)
[2017-07-19 15:05] VITALS: BP_SYST 122; BP_SYST 135; BP_DIAS 72; BP_DIAS 73; BP_DIAS 82
--- NOTE | 2017-07-19 17:56 | Discharge Inst-Women's Service ---
Discharge Inst-Women's Serv Depart Medication/Instructions New, Converted or Re-Newed RX: RX on Chart Consults/Follow Up Additional Follow Up: Yes Orders/Referrals Dr. Francois in 1 week and in 8 weeks Activity Activity: Activity as Tolerated Driving Instructions: No Driving for 1 Week NO SMOKING: NO SMOKING Nothing Inside Vagina: No Douching, No Dewy Rose, No Tampons Other Activity Leave tipton cath in place Diet Discharge Diet: No Restrictions Symptoms to Report to : Bleeding Excessive, Pain Increased, Fever Over 101 Degrees F, Vaginal Bleeding Increase, Questions/Concerns For Any Problems or Questions: Contact Your Physician Skin/Wound Care Infection Signs and Symptoms: Increased Redness, Foul Odor of Wound, Increased Drainage, Skin Itchy or Has a Rash, Increased Swelling, Temperature Above 101 F Operative Area Clean and Dry: Keep Incision Clean/Dry Stitches/Jack/Dermabond: Dermabond, Care of Stitches Bathing Instructions: NESTOR Merritt DO Jul 19, 2017 5:56 pm
[2017-07-19] MEDS ORDERED: HYDR-3816 PO ×2 (17:57)
[2017-07-19] MEDS ORDERED: SIME80TA16 PO ×2 (17:57)
[2017-07-19] MEDS ORDERED: DOCU100C37 PO ×2 (17:57)
[2017-07-19] MEDS ORDERED: IBUP-1773 PO ×2 (17:57)
--- NOTE | 2017-07-19 17:59 | Progress Note-Post Operative ---
Post-Operative Progess Note Surgeon (s)/Radiation Physicist (s) Surgeon NESTOR STONER DO Radiation Physicist: Cleopatra Kirkpatrick Pre-Operative Diagnosis AUB, Fibroid uterus, Iron deficency anemia, BMI 37 Post-Operative Diagnosis same Procedure & Operative Findings Date of Procedure 07/19/17 Procedure Performed/Findings RATLH with BSO, cystotomy repair see dictation Anesthesia Type GETA Estimated Blood Loss Estimated blood loss (mL): 50 Specimens/Packing Specimens Removed uterus and bilateral fallopian tubes and ovaries NESTOR STONER DO Jul 19, 2017 5:59 pm
[2017-07-19 20:00] VITALS: BP 134/80
[2017-07-19] MEDS: HYDROcodone/APAP 7.5 MG/325 MG (LORTAB, LORCET PLUS) TABLET PO PRN (20:22)
[2017-07-20] VITALS: BP_SYST 116; BP_SYST 133; BP_DIAS 70; BP_DIAS 75
[2017-07-20] MEDS: IBUPROFEN 600 MG (MOTRIN) TAB PO PRN ×2 (01:55→07:57)
[2017-07-20 03:46] VITALS: BP 124/70
[2017-07-20] MEDS: HYDROcodone/APAP 7.5 MG/325 MG (LORTAB, LORCET PLUS) TABLET PO PRN ×2 (03:48→09:40)
[2017-07-20 06:16] LABS: BASOPHILS % (AUTO) 0 % (0-10); EOSINOPHILS % (AUTO) 0 % (0-10); LYMPHOCYTES # (AUTO) 1.6 X 10^3 (1.0-4.0); LYMPHOCYTES % (AUTO) 12 % (12-44); MEAN CORPUSCULAR HEMOGLOBIN 27 PG (25-34); MEAN CORPUSCULAR HGB CONC 33 G/DL (32-36); MEAN CORPUSCULAR VOLUME 82 FL (80-99); MEAN PLATELET VOLUME 10.2 FL (7.4-10.4); MONOCYTES # (AUTO) 1.1 X 10^3 (0.0-1.0); MONOCYTES % (AUTO) 9 % (0-12); NEUTROPHILS # (AUTO) 10.4 X 10^3 (1.8-7.8); NEUTROPHILS % (AUTO) 79 % (42-75); PLATELET COUNT 267 10^3/uL (130-400); RED BLOOD COUNT 4.99 10^6/uL (4.35-5.85); WHITE BLOOD COUNT 13.1 10^3/uL (4.3-11.0)
[2017-07-20 06:41] LABS: ALANINE AMINOTRANSFERASE 32 U/L (0-55); ALBUMIN 3.6 GM/DL (3.2-4.5); ANION GAP 10 MMOL/L (5-14); ASPARTATE AMINO TRANSFERASE 20 U/L (5-34); BILIRUBIN,TOTAL 0.5 MG/DL (0.1-1.0); BLOOD UREA NITROGEN 10 MG/DL (7-18); BUN/CREATININE RATIO 12; CALCIUM 8.7 MG/DL (8.5-10.1); CARBON DIOXIDE 25 MMOL/L (21-32); CHLORIDE 102 MMOL/L (98-107); CREATININE SERUM 0.83 MG/DL (0.60-1.30); GFR ESTIMATED > 60; GLUCOSE 107 MG/DL (70-105); POTASSIUM 3.7 MMOL/L (3.6-5.0); SODIUM 137 MMOL/L (135-145); TOTAL PROTEIN 6.9 GM/DL (6.4-8.2)
--- NOTE | 2017-07-20 06:47 | OPERATIVE REPORT ---
DATE OF SERVICE: PREOPERATIVE DIAGNOSES: 1. A 51-year-old female with abnormal uterine bleeding. 2. Fibroid uterus. 3. Back and lower pelvic pain. 4. Iron-deficiency anemia. 5. Body mass index of 37. POSTOPERATIVE DIAGNOSES: 1. A 51-year-old female with abnormal uterine bleeding. 2. Fibroid uterus. 3. Back and lower pelvic pain. 4. Iron-deficiency anemia. 5. Body mass index of 37. 6. Repair of incidental cystotomy. PROCEDURE: 1. Robotic assisted total laparoscopic hysterectomy with bilateral salpingo-oophorectomy. 2. Repair of cystotomy. ANESTHESIA: General endotracheal. ESTIMATED BLOOD LOSS: 50 mL. URINE OUTPUT 75 mL indigo carmine stained at the end of the procedure. FLUIDS: 1700 mL of lactate Ringer's solution. FINDINGS: A grossly enlarged uterus with multiple intramural fibroids and subserosal fibroids. Grossly normal bilateral fallopian tubes and ovaries. SPECIMEN SENT: Uterus, bilateral fallopian tubes and ovaries. The uterus had been bivalved at the fundus to allow for removal through the vagina. INDICATIONS FOR PROCEDURE: This 51-year-old female is a patient that has been established in my office for almost 2 years now. Approximately 2 years ago, we discussed proceeding with hysterectomy due to ongoing issues with heavy bleeding, pelvic discomfort as well as a finding of a fibroid uterus. Other treatment modalities were reviewed at that time. We had scheduled the procedure, however, something came up in the patient's life and she was unable to go forward with the patient at that time. The patient then recently in the last month came into my office with severe episodes of anemia that occurred this year and wishing to proceed with the procedure as previously discussed. We reviewed the risk and alternatives of the procedure at that time, however, at that point, the patient had already been admitted to the hospital and received blood transfusions and was at her wits end for having this treated. She is also having significant amounts of pelvic pain and discomfort due to the size of the uterus. Repeat endometrial sampling was performed which was found to be negative and a repeat ultrasound was ordered as well. After everything was reviewed with the patient, risks of the procedure in detail, risk from anesthesia, risk from blood transfusion and subsequent procedures that may be entailed from damage that occurred during the procedure. After all of this was discussed with the patient, consent was obtained and the patient was taken to the operating room. OPERATIVE REPORT IN DETAIL: Once in the operating room, anesthesia was found to be adequate and she was placed in the dorsal lithotomy position, prepped and draped in normal sterile fashion. A Segovia catheter was placed using sterile technique. I then placed a weighted speculum in the patient's vagina, a right angle retractor was used to visualize the cervix, it was grasped at the 12 o'clock position using a single tooth tenaculum. An 0 Vicryl suture was then placed in the anterior lip of the cervix which allows to be used as my retraction point and I removed the tenaculum. I then gently sounded the uterine cavity, the depth was found to be approximately 8-9 cm. I then placed an 8 cm Li uterine manipulator tip and a 3.5 colpotomy ring into the vagina and the tip goes into the endometrial canal where the balloon is deployed and the colpotomy ring goes around the vaginal fornix. Once this is in place, I am able to appreciate on bimanual examination, some manipulation however, this is somewhat limited due to the patient's body habitus. I then perform a change of gloves and take my attention to the abdomen where I infraumbilically infiltrated this area using 0.25% Marcaine and make an 8 mm incision and direct this incision a Veress needle. Intraperitoneal placement is confirmed using the saline drop test. I proceed with insufflation using CO2 gas and an opening pressure of 3 mmHg is noted. I proceed to maximum pressure of 15 mmHg at which point I remove the Veress needle and introduce a blunt da Nikko camera trocar through this incision. Once this is placed, I am able to confirm all of the findings that I described in my findings above. I had the patient placed in steep Trendelenburg and placed lateral trocars, 8 cm lateral to my infraumbilical trocar. These were both 8 mm incision that were used to place these trocars, similar to my infraumbilical trocar. Once these are in place, I bring the da Nikko robot and dock it in the appropriate fashion. I place the vessel sealer in my left hand and monopolar quynh in the right hand. I perform the following dissection bilaterally: I grasp the infundibulopelvic ligament bipolar cauterize it and transect it using the vessel sealer. During this process I am able to visualize the ureter and it is clear of my dissection planes. I then grasp the round ligament bipolar cauterize this and transect it using the vessel sealer. There is difficulty grabbing the entire broad ligament due to distorted size of the uterus due to the size of the fibroids within it, but I do take the anterior posterior leafs down of the broad ligament reflection. The anterior leaf is taken around to the anterior vaginal fornix. The posterior leaf is taken around to the posterior vaginal fornix. The anterior vaginal fornix is extremely difficult to visualize. However in my attempt to locate the anterior vaginal fornix, I do end up performing an incidental cystotomy using the monopolar quynh. This is left alone at that time and I go ahead and find the anterior vaginal fornix using monopolar quynh in my dissection. The cystotomy defect is noted to be approximately 3 cm long and linear. I then take the posterior reflection of the broad ligament down to the posterior vaginal fornix which is easily seen and the colpotomy is performed posteriorly which exposes the colpotomy ring of the [employer] uterine manipulator. I then am able to skeletonize the uterine vessels carefully on the lateral aspect of the uterus. I then bipolar cauterize them and transect them using the vessel sealer. Once this is done, I am able to take my colpotomy circumferentially around the vaginal fornix using the monopolar quynh amputating the cervix, uterus away from the vagina. I bivalve the uterus at its upper 3rd trying to shell out the fibroid at the most superior margin of the fundus of the uterus using the monopolar quynh, taking this off allows for removal of the remainder of the specimen through the vagina which it is then removed through. There is a laceration of the perineum and the vagina which is repaired later using 3-0 Vicryl suture after the procedure is completed. The 2nd portion of the uterus is then removed through the vagina as well. I proceed with closing, first the colpotomy defect. The Segovia catheter bulb is visualized within the bladder. I being by closing the bladder after consulting over the telephone with the urologist. I begin with closing the bladder using 3-0 Vicryl suture in a running fashion. I do this in 2 separate layers closing the mucosal layer in my first closure. The 2nd layer is a submucosal layer and reapproximating and reinforcing and imbricating that incision. Once this is done, I retroinfuse indigo carmine mixed with normal saline which is sterile into the bladder and there is no evidence of any leakage at that point. This is done with approximately 75 mL. So once this is done, I then proceed with the remainder of the case I normally would, closing the vaginal cuff using 2-0 Vicryl suture in a [id number] fashion in the lateral vaginal apices colposuspending them to the uterosacral ligaments and then closing the remainder of the vaginal cuff using 2-0 V-Loc in a running fashion after which there was no active bleeding noted from any of my dissection planes. I then undock the da Nikko robot and proceed with the remainder of the case laparoscopically. I place FloSeal over all my planes of dissection after copiously irrigating the pelvis using normal saline and no active bleeding was noted. I then removed the lateral trocars under direct visualization with the laparoscope. The infraumbilical trocar was left in place to release insufflation and to introduce 2 mL of 0.25% Marcaine to the peritoneal cavity for postoperative pain management. I then removed this trocar and closed the skin incisions using 4-0 Monocryl in interrupted subcuticular stitches, Dermabond was applied to the incision and Band-Aids were placed over these. A Segovia catheter was left in place and instructions were given strictly to the nursing staff to not remove the Segovia catheter. This will be taken out in 1 week. Lap, sponge, and needle count was correct at the end of the procedure. Instrument count was correct as well. 2 g of Ancef and 500 mg of Flagyl were given preoperatively for infection prophylaxis. Job ID: [id number] DocumentID: [id number] Dictated Date: 07/19/2017 18:09:49 Power Transformer Assembler Date: 07/20/2017 06:46:19 Dictated By: NESTOR STONER DO
[2017-07-20 08:00] VITALS: BP 112/72
[2017-07-20] MEDS ORDERED: CEPH-507 PO ×2 (08:43)
[2017-07-20 12:15] VITALS: BP 128/88
== END 2017-07-20 12:15 | disposition home or self-care (01) ==
LOC: SDC 09:55 → WS 15:05 → SDC 07-20 12:15
PROVIDERS: ATTEND Obstetrics & Gynecology
DX: N80.0 Endometriosis of uterus (principal); D25.0 Submucous leiomyoma of uterus; D25.1 Intramural leiomyoma of uterus; D25.2 Subserosal leiomyoma of uterus; N83.11 Corpus luteum cyst of right ovary; N93.9 Abnormal uterine and vaginal bleeding, unspecified; D50.9 Iron deficiency anemia, unspecified; E66.01 Morbid (severe) obesity due to excess calories; Z68.37 Body mass index [BMI] 37.0-37.9, adult; G47.33 Obstructive sleep apnea (adult) (pediatric); E03.9 Hypothyroidism, unspecified; I49.3 Ventricular premature depolarization; I10 Essential (primary) hypertension; K21.9 Gastro-esophageal reflux disease without esophagitis; G62.9 Polyneuropathy, unspecified; Z79.899 Other long term (current) drug therapy
CPT/HCPCS: 36415; 80053; 84703; 85025; 86850; 86900; 86901; 86920; 88304; 94664

== ENCOUNTER → 2017-07-26 | Outpatient (CLI) | payer BC ==
[~2017-07-26] MED LIST changes: +CEPH-507 PO; +DOCU100C37 PO; +HYDR-3816 PO; +IBUP-1773 PO; +IOHEXOL 350 MG/ML 100 ML (OMNIPAQUE 350) VIAL IV ONE; +METO-270 PO; -METO-387 PO; +SIME80TA16 PO
--- NOTE | 2017-07-26 13:25 | Diagnostic Imaging Report ---
EXAMINATION: CT cystogram performed with and without contrast in the urinary bladder administered through a Segovia catheter. INDICATION: Intraoperative injury of the bladder. TECHNIQUE: 225 mL of contrast was injected into the urinary bladder during the exam. No IV or oral contrast was administered. FINDINGS: There is edema and fatty stranding seen in the pelvis with suggestion of a hysterectomy performed. The findings might be related to the recent surgery. There is no significant fluid collection identified. The urinary bladder is well distended with contrast with no evidence of leakage into the surrounding tissues. A small amount of luminal air within the urinary bladder is probably related to the Segovia catheter placement. The osseous structures appear unremarkable. IMPRESSION: No evidence of contrast leakage from the urinary bladder is seen. No evidence of a fistula. Dictated by: Dictated on workstation # [id number]
== END ==
LOC: RAD 09:47
PROVIDERS: ATTEND Obstetrics & Gynecology
DX: N99.81 Other intraoperative complications of genitourinary system (principal)
CPT/HCPCS: 72192

== ENCOUNTER 2017-11-25 14:38 | Emergency (ER) | payer SELFPAY ==
[~2017-11-25] VITALS: Ht 162.6 cm; Wt 99.8 kg
[~2017-11-25 14:38] MED LIST changes: +ACHD5005 PO; -HYDR-3812 PO; -IOHEXOL 350 MG/ML 100 ML (OMNIPAQUE 350) VIAL IV ONE; -METO-270 PO; +METO-387 PO
--- OUTSIDE RECORDS SUMMARY | 2017-11-25 14:46 | XMS REPORT | Continuity of Care Document ---
Author Author [facility] Organization [facility] Address Unknown Phone Unavailable Allergies Active Description Code Type Severity Reaction Onset Reported/Identified Relationship to Patient Clinical Status Yes Penicillins [id number] Drug Allergy Unknown N/A 01/12/2009 Yes Sulfa (Sulfonamide Antibiotics) [id number] Drug Allergy Unknown N/A 2008 Medications There is no data. Problems Date Dx Coded Attending Type Code Diagnosis Diagnosed By 05/29/2014 ARASELI CHAN MD Ot 724.5 BACKACHE NOS 05/29/2014 ARASELI CHAN MD Ot 724.8 OTHER BACK SYMPTOMS 08/17/2014 WADE YOUSSEF MD Ot 530.81 ESOPHAGEAL REFLUX 08/17/2014 WADE YOUSSEF MD Ot 786.50 CHEST PAIN NOS 09/17/2014 MORIAH HERRERA MD Ot 715.91 09/17/2014 MORIAH HERRERA MD Ot 726.10 09/17/2014 MORIAH HERRERA MD Ot V57.1 09/22/2014 TEMITOPE CHING MD Ot 427.69 09/22/2014 TEMITOPE CHING MD Ot 785.1 09/22/2014 TEMITOPE CHING MD Ot 786.50 09/22/2014 TEMITOPE CHING MD Ot 397.0 09/22/2014 TEMITOPE CHING MD Ot 424.0 09/22/2014 TEMITOPE CHING MD Ot 427.69 09/22/2014 TEMITOPE CHING MD Ot 785.1 09/22/2014 TEMITOPE CHING MD Ot 786.50 09/22/2014 SHARON JOHNS, MORIAH Jara Ot 719.41 09/22/2014 MORIAH HERRERA MD Ot 719.61 09/22/2014 MORIAH HERRERA MD L Ot 715.91 09/22/2014 MORIAH HERRERA MD L Ot 726.10 09/22/2014 SHARON JOHNS, MORIAH Jara Ot V57.1 09/22/2014 SHARON JOHNS, MORIAH Jara Ot 719.41 09/22/2014 SHARON JOHNS, MORIAH Jara Ot 719.61 09/22/2014 HUMZA JOHNS, TEMITOPE Taveras Ot 427.69 09/22/2014 HUMZA JOHNS, TEMITOPE Taveras Ot 785.1 09/22/2014 TEMITOPE CHING MD Ot 786.50 09/22/2014 HUMZA JOHNS, TEMITOPE Taveras Ot 397.0 09/22/2014 HUMZA JOHNS, TEMITOPE J Ot 424.0 09/22/2014 TEMITOPE CHING MD Ot 427.69 09/22/2014 TEMITOPE CHING MD Ot 785.1 09/22/2014 TEMITOPE CHING MD Ot 786.50 09/22/2014 SHARON JOHNS, MORIAH Jara Ot 719.41 09/22/2014 SHARON JOHNS, MORIAH Jara Ot 719.61 09/22/2014 SHARON JOHNS, MORIAH Jara Ot 715.91 09/22/2014 SHARON JOHNS, MORIAH Jara Ot 726.10 09/22/2014 MORIAH HERRERA MD Ot V57.1 11/02/2014 MORIAH HERRERA MD Ot V76.12 11/02/2014 FENECH DO, NESTOR S Ot 218.9 11/02/2014 FENECH DO, NESTOR S Ot 625.9 11/03/2014 SHARON JOHNS, MORIAH Jara Ot 793.80 11/04/2014 SHARON JOHNS, MORIAH Jara Ot 715.91 OSTEOARTHROS NOS-SHLDER 11/04/2014 SHARON JOHNS, MORIAH Jara Ot 726.10 BURSAE TENDONS DIS SHLDER NOS 11/04/2014 SHARON JOHNS, MORIAH Jara Ot V57.1 PHYSICAL THERAPY NEC 11/06/2014 SHARON JOHNS, MORIAH Jara Ot 611.72 11/09/2014 FENECH DO, NESTOR S Ot 218.9 11/09/2014 FENECH DO, NESTOR S Ot 625.9 11/09/2014 FENECH DO, NESTOR S Ot 626.8 11/09/2014 FENECH DO, NESTOR S Ot V72.63 11/09/2014 FENECH DO, NESTOR S Ot V74.8 11/16/2014 SHARON JOHNS, MORIAH L Ot 719.41 11/16/2014 SHARON JOHNS, MORIAH L Ot 719.61 11/16/2014 FENECH DO, NESTOR S Ot 218.9 11/16/2014 FENECH DO, NESTOR S Ot 625.9 11/16/2014 FENECH DO, NESTOR S Ot 626.8 11/16/2014 FENECH DO, NESTOR S Ot V72.63 11/16/2014 FENECH DO, NESTOR S Ot V74.8 11/16/2014 FENECH DO, NESTOR S Ot 218.9 11/16/2014 FENECH DO, NESTOR S Ot 625.9 11/16/2014 SHARON JOHNS, MORIAH L Ot 611.72 11/16/2014 SHARON JOHNS, MOIRAH L Ot V76.12 11/16/2014 SHARON JOHNS, MORIAH L Ot 793.80 11/16/2014 SHARON JOHNS, MORIAH L Ot 719.41 11/16/2014 SHARON JOHNS, MORIAH L Ot 719.61 11/16/2014 SHARON JOHNS, MORIAH L Ot V76.12 11/16/2014 FENECH DO, NESTOR S Ot 218.9 11/16/2014 FENECH DO, NESTOR S Ot 625.9 11/16/2014 SHARON JOHNS, MORIAH L Ot 793.80 11/16/2014 FENECH DO, NESTOR S Ot 218.9 11/16/2014 FENECH DO, NESTOR S Ot 625.9 11/16/2014 FENECH DO, NESTOR S Ot 626.8 11/16/2014 FENECH DO, NESTOR S Ot V72.63 11/16/2014 FENECH DO, NESTOR S Ot V74.8 11/16/2014 SHARON JOHNS, MORIAH L Ot 611.72 11/23/2014 FENECH DO, NESTOR S Ot 218.9 11/23/2014 FENECH DO, NESTOR S Ot 625.9 11/23/2014 FENECH DO, NESTOR S Ot 626.8 11/23/2014 FENECH DO, NESTOR S Ot V72.63 11/23/2014 FENECH DO, NESTOR S Ot V74.8 11/28/2014 SHARON JOHNS, MORIAH L Ot V76.12 11/28/2014 FENECH DO, NESTOR S Ot 218.9 11/28/2014 FENECH DO, NESTOR S Ot 625.9 11/28/2014 SHARON JOHNS, MORIAH Jara Ot 793.80 12/09/2014 SHARON JOHNS, MORIAH L Ot 611.72 12/23/2014 HUMZA JOHNS, TEMITOPE Taveras Ot 427.69 12/23/2014 HUMZA JOHNS, TEMITOPE Taveras Ot 785.1 12/23/2014 HUMZA JOHNS, TEMITOPE Taveras Ot 786.50 12/24/2014 FENECH DO, NESTOR S Ot 218.9 12/24/2014 FENECH DO, NESTOR S Ot 625.9 12/24/2014 FENECH DO, NESTOR S Ot 626.8 12/24/2014 FENECH DO, NESTOR S Ot V72.63 12/24/2014 FENECH DO, NESTOR S Ot V74.8 12/24/2014 SHARON JOHNS, MORIAH Jara Ot 611.72 01/25/2015 SYDNEE JOHNS, BRYON Bowen Ot 285.9 ANEMIA NOS 01/25/2015 BRYON RANDHAWA MD Ot 584.9 ACUTE RENAL FAILURE, UNSPECIFIED 01/25/2015 BRYON RANDHAWA MD Ot 780.4 DIZZINESS AND GIDDINESS 01/25/2015 BRYON RANDHAWA MD Ot 785.1 PALPITATIONS 01/25/2015 BRYON RANDHAWA MD Ot 786.09 RESPIRATORY ABNORM NEC 01/25/2015 HUMZA JOHNS, TEMITOPE Taveras Ot 427.69 01/25/2015 HUMZA JOHNS, TEMITOPE Taveras Ot 785.1 01/25/2015 TEMITOPE CHING MD Ot 786.50 01/25/2015 HUMZA JOHNS, TEMITOPE Taveras Ot 397.0 01/25/2015 HUMZA JOHNS, TEMITOPE Taveras Ot 424.0 01/25/2015 HUMZA JOHNS, TEMITOPE Taveras Ot 427.69 01/25/2015 HUMZA JOHNS, TEMITOPE Taveras Ot 785.1 01/25/2015 TEMITOPE CHING MD Ot 786.50 01/25/2015 SHARON JOHNS, MORIAH L Ot 719.41 01/25/2015 SHARON JOHNS, MORIAH Jara Ot 719.61 01/25/2015 SHARON JOHNS, MORIAH L Ot V76.12 01/25/2015 FENECH DO, NESTOR S Ot 218.9 01/25/2015 FENECH DO, NESTOR S Ot 625.9 01/25/2015 SHARON JOHNS, MORIAH L Ot 793.80 01/25/2015 SHARON JOHNS, MORIAH L Ot 611.72 02/10/2015 SHARON JOHNS, MORIAH L Ot 719.41 02/10/2015 SHARON JOHNS, MORIAH L Ot 719.61 02/10/2015 SHARON JOHNS, MORIAH L Ot V76.12 02/10/2015 FENECH DO, NESTOR S Ot 218.9 02/10/2015 FENECH DO, NESTOR S Ot 625.9 02/10/2015 SHARON JOHNS, MORIAH L Ot 793.80 02/10/2015 FENECH DO, NESTOR S Ot 218.9 02/10/2015 FENECH DO, NESTOR S Ot 625.9 02/10/2015 FENECH DO, NESTOR S Ot 626.8 02/10/2015 FENECH DO, NESTOR S Ot V72.63 02/10/2015 FENECH DO, NESTOR S Ot V74.8 02/10/2015 SHARON JOHNS, MORIAH L Ot 611.72 03/17/2015 SHARON JOHNS, MORIAH L Ot 719.41 03/17/2015 SHARON JOHNS, MORIAH L Ot 719.61 03/17/2015 SHARON JOHNS, MORIAH L Ot V76.12 03/17/2015 FENECH DO, NESTOR S Ot 218.9 03/17/2015 FENECH DO, NESTOR S Ot 625.9 03/17/2015 SHARON JOHNS, MORIAH L Ot 793.80 03/17/2015 FENECH DO, NESTOR S Ot 218.9 03/17/2015 FENECH DO, NESTOR S Ot 625.9 03/17/2015 FENECH DO, NESTOR S Ot 626.8 03/17/2015 FENECH DO, NESTOR S Ot V72.63 03/17/2015 FENECH DO, NESTOR S Ot V74.8 03/17/2015 SHARON JOHNS, MORIAH L Ot 611.72 03/17/2015 FENECH DO, NESTOR S Ot 218.9 03/17/2015 FENECH DO, NESTOR S Ot 626.9 03/19/2015 FENECH DO, NESTOR S Ot 218.9 03/19/2015 FENECH DO, NESTOR S Ot 626.9 04/13/2015 CONNOR MCMAHAN DO Ot 278.01 04/13/2015 MARTIR CONNOR MARRERO Ot 327.23 04/13/2015 MARTIR DO CONNOR Mcconnell Ot 785.1 04/13/2015 MARTIR CONNOR M Ot 786.09 05/27/2015 SHARON JOHNS, [facility] Ot 793.80 07/08/2015 HUMZA JOHNS, TEMITOPE Taveras Ot 427.69 07/08/2015 HUMZA JOHNS, TEMITOPE Taveras Ot 785.1 07/08/2015 HUMZA JOHNS, TEMITOPE J Ot 786.50 07/08/2015 HUMZA JOHNS, TEMITOPE J Ot 397.0 07/08/2015 HUMZA JOHNS, TEMITOPE J Ot 424.0 07/08/2015 HUMZA JOHNS, TEMITOPE Taveras Ot 427.69 07/08/2015 HUMZA JOHNS, TEMITOPE Taveras Ot 785.1 07/08/2015 HUMZA JOHNS, TEMITOPE Taveras Ot 786.50 07/08/2015 SHARON JOHNS, MORIAH L Ot 719.41 07/08/2015 SHARON JOHNS, MORIAH L Ot 719.61 07/08/2015 SHARON JOHNS, MORIAH L Ot V76.12 07/08/2015 FENECH DO, NESTOR S Ot 218.9 07/08/2015 FENECH DO, NESTOR S Ot 625.9 07/08/2015 SHARON JOHNS, MORIAH L Ot 793.80 07/08/2015 SHARON JOHNS, [facility] Ot 611.72 07/08/2015 SHARON JOHNS, MORIAH L Ot 793.80 07/08/2015 MARTIR MARRERO CONNOR Mcconnell Ot 278.01 07/08/2015 MARTIR CONNOR M Ot 327.23 07/08/2015 MARTIR CONNOR Mcconnell Ot 785.1 07/08/2015 MARTIR DO CONNOR M Ot 786.09 07/08/2015 FENECH DO, NESTOR S Ot 218.9 07/08/2015 FENECH DO, NESTOR S Ot 626.9 07/21/2015 FENECH DO, NESTOR S Ot 218.9 07/21/2015 FENECH DO, NESTOR S Ot 626.9 07/21/2015 MARTIR MARRERO CONNOR M Ot 278.01 07/21/2015 MARTIR MARRERO CONNOR M Ot 327.23 07/21/2015 CONNOR MCMAHAN DO M Ot 785.1 07/21/2015 CONNOR MCMAHAN DO M Ot 786.09 07/21/2015 SHARON JOHNS, MORIAH Jara Ot 793.80 07/21/2015 SHARON JOHNS, MORIAH Jara Ot 793.80 07/21/2015 CONNOR MCMAHAN DO M Ot 278.01 07/21/2015 CONNOR MCMAHAN DO M Ot 327.23 07/21/2015 CONNOR MCMAHAN DO M Ot 785.1 07/21/2015 CONNOR MCMAHAN DO M Ot 786.09 07/21/2015 CONNOR MCMAHAN DO M Ot 278.01 07/21/2015 CONNOR MCMAHAN DO M Ot 327.23 07/21/2015 CONNOR MCMAHAN DO M Ot 785.1 07/21/2015 CONNOR MCMAHAN DO M Ot 786.09 07/21/2015 FENECH DO, NESTOR S Ot 218.9 07/21/2015 FENECH DO, NESTOR S Ot 626.9 07/21/2015 FENECH DO, NESTOR S Ot 218.9 07/21/2015 FENECH DO, NESTOR S Ot 626.9 07/28/2015 FENECH DO, NESTOR S Ot 218.9 07/28/2015 FENECH DO, NESTOR S Ot 626.9 07/28/2015 FENECH DO, NESTOR S Ot D25.9 07/28/2015 CONNOR MCMAHAN DO M Ot 278.01 07/28/2015 CONNOR MCMAHAN DO M Ot 327.23 07/28/2015 CONNOR MCMAHAN DO M Ot 785.1 07/28/2015 CONNOR MCMAHAN DO M Ot 786.09 07/28/2015 CONNOR MCMAHAN DO M Ot E66.01 07/28/2015 MARTIR DOCONNOR M Ot G47.33 07/28/2015 MARTIR DOCONNOR M Ot R00.2 07/28/2015 SHARON JOHNS, MORIAH Jara Ot 793.80 07/28/2015 SHARON JOHNS, MORIAH Jara Ot R92.8 10/04/2015 HUMZA JOHNS, TEMITOPE Taveras Ot 427.69 10/04/2015 HUMZA JOHNS, TEMITOPE Taveras Ot 785.1 10/04/2015 HUMZA JOHNS, TEMITOPE Taveras Ot 786.50 10/04/2015 TEMITOPE CHING MD Ot 397.0 10/04/2015 TEMITOPE CHING MD Ot 424.0 10/04/2015 TEMITOPE CHING MD Ot 427.69 10/04/2015 TEMITOPE CHING MD Ot 785.1 10/04/2015 TEMITOPE CHING MD Ot 786.50 10/04/2015 SHARON JOHNS, MORIAH L Ot 719.41 10/04/2015 SHARON JOHNS, MORIAH L Ot 719.61 10/04/2015 SHARON JOHNS, MORIAH L Ot V76.12 10/04/2015 FENECH DO, NESTOR S Ot 218.9 10/04/2015 FENECH DO, NESTOR S Ot 625.9 10/04/2015 SHARON JOHNS, MORIAH L Ot 793.80 10/04/2015 SHARON JOHNS, MORIAH L Ot 611.72 10/20/2015 SHARON JOHNS, MORIAH L Ot R92.8 12/20/2015 MORIAH HERRERA MD L Ot R92.8 12/27/2015 SHARON JOHNS, MORIAH L Ot R92.8 04/28/2016 BRYON RANDHAWA MD Ot 285.9 ANEMIA NOS 04/28/2016 BRYON RANDHAWA MD Ot 584.9 ACUTE RENAL FAILURE, UNSPECIFIED 04/28/2016 BRYON RANDHAWA MD Ot 780.4 DIZZINESS AND GIDDINESS 04/28/2016 BRYON RANDHAWA MD Ot 785.1 PALPITATIONS 04/28/2016 BRYON RANDHAWA MD Ot 786.09 RESPIRATORY ABNORM NEC 05/29/2016 BRYON RANDHAWA MD T Ot 285.9 ANEMIA NOS 05/29/2016 BRYON RANDHAWA MD T Ot 584.9 ACUTE RENAL FAILURE, UNSPECIFIED 05/29/2016 BRYON RANDHAWA MD Ot 780.4 DIZZINESS AND GIDDINESS 05/29/2016 BRYON RANDHAWA MD Ot 785.1 PALPITATIONS 05/29/2016 BRYON RANDHAWA MD Ot 786.09 RESPIRATORY ABNORM NEC 10/12/2016 TEMITOPE CHING MD Ot 427.69 PREMATURE BEATS NEC 10/12/2016 TEMITOPE CHING MD Ot 785.1 PALPITATIONS 10/12/2016 TEMITOPE CHING MD Ot 786.50 CHEST PAIN NOS 10/12/2016 TEMITOPE CHING MD Ot 397.0 TRICUSPID VALVE DISEASE 10/12/2016 TEMITOPE CHING MD Ot 424.0 MITRAL VALVE DISORDER 10/12/2016 TEMITOPE CHING MD Ot 427.69 PREMATURE BEATS NEC 10/12/2016 TEMITOPE CHING MD Ot 785.1 PALPITATIONS 10/12/2016 TEMITOPE CHING MD Ot 786.50 CHEST PAIN NOS 10/12/2016 MORIAH HERRERA MD Ot 719.41 JOINT PAIN-SHLDER 10/12/2016 MORIAH HERRERA MD L Ot 719.61 JOINT SYMPTOM NEC-SHLDER 10/12/2016 MORIAH HERRERA MD Ot V76.12 OTH SCREEN MAMMO-MALIGN NEOPLASM OF [place] 10/12/2016 NESTOR STONER DO S Ot 218.9 UTERINE LEIOMYOMA NOS 10/12/2016 NESTOR STONER DO S Ot 625.9 FEM GENITAL SYMPTOMS NOS 10/12/2016 SHARON JOHNS, MORIAH L Ot 793.80 UNSPEC ABNORMAL MAMMOGRAM 10/12/2016 SHARON JOHNS, MORIAH L Ot 611.72 LUMP OR MASS IN BREAST 10/12/2016 MORIAH HERRERA MD Ot R92.8 OTH ABN AND INCONCLUSIVE FINDINGS ON DX 10/12/2016 JIMMY THOMPSON CAGE UNLOADER Ot R05 COUGH 12/06/2016 TEMITOPE CHING MD Ot 427.69 PREMATURE BEATS NEC 12/06/2016 TEMITOPE CHING MD Ot 785.1 PALPITATIONS 12/06/2016 TEMITOPE CHING MD Ot 786.50 CHEST PAIN NOS 12/06/2016 TEMITOPE CHING MD Ot 397.0 TRICUSPID VALVE DISEASE 12/06/2016 TEMITOPE CHING MD Ot 424.0 MITRAL VALVE DISORDER 12/06/2016 TEMITOPE CHING MD Ot 427.69 PREMATURE BEATS NEC 12/06/2016 TEMITOPE CHING MD Ot 785.1 PALPITATIONS 12/06/2016 TEMITOPE CHING MD Ot 786.50 CHEST PAIN NOS 12/06/2016 SHARON JOHNS, MORIAH L Ot 719.41 JOINT PAIN-SHLDER 12/06/2016 SHARON JOHNS, MORIAH Jara Ot 719.61 JOINT SYMPTOM NEC-SHLDER 12/06/2016 SHARON JOHNS, MORIAH Jara Ot V76.12 OTH SCREEN MAMMO-MALIGN NEOPLASM OF [place] 12/06/2016 NESTOR STONER DO S Ot 218.9 UTERINE LEIOMYOMA NOS 12/06/2016 NESTOR STONER DO S Ot 625.9 FEM GENITAL SYMPTOMS NOS 12/06/2016 SHARON JOHNS, MORIAH Jara Ot 793.80 UNSPEC ABNORMAL MAMMOGRAM 12/06/2016 SHARON JOHNS, MORIAH Jara Ot 611.72 LUMP OR MASS IN BREAST 12/06/2016 MORIAH HERRERA MD Ot R92.8 OTH ABN AND INCONCLUSIVE FINDINGS ON DX 12/06/2016 JIMMY THOMPSON APRN Ot R05 COUGH 12/07/2016 MORIAH HERRERA MD Ot R92.8 OTH ABN AND INCONCLUSIVE FINDINGS ON DX 12/07/2016 MORIAH HERRREA MD Ot R92.8 OTH ABN AND INCONCLUSIVE FINDINGS ON DX 12/21/2016 MORIAH HERRERA MD Ot R92.8 OTH ABN AND INCONCLUSIVE FINDINGS ON DX 12/22/2016 ERLINDA STOVALL DO Ot N63 UNSPECIFIED LUMP IN BREAST 12/22/2016 ERLINDA STOVALL DO Ot Z01.812 ENCOUNTER FOR PREPROCEDURAL LABORATORY E 12/22/2016 ERLINDA STOVALL DO Ot Z11.2 ENCOUNTER FOR SCREENING FOR OTHER BACTER 12/28/2016 ERLINDA STOVALL DO Ot N60.91 UNSPECIFIED BENIGN MAMMARY DYSPLASIA OF 01/01/2017 ERLINDA STOVALL DO Ot N60.91 UNSPECIFIED BENIGN MAMMARY DYSPLASIA OF 01/04/2017 ERLINDA STOVALL DO Ot N60.91 UNSPECIFIED BENIGN MAMMARY DYSPLASIA OF 02/12/2017 SHARON JOHNS, MORIAH L Ot R92.8 OTH ABN AND INCONCLUSIVE FINDINGS ON DX 02/12/2017 JIMMY THOMPSON APRN Ot R05 COUGH 02/12/2017 TEMITOPE CHING MD Ot 427.69 PREMATURE BEATS NEC 02/12/2017 TEMITOPE CHING MD Ot 785.1 PALPITATIONS 02/12/2017 TEMITOPE CHING MD Ot 786.50 CHEST PAIN NOS 02/12/2017 TEMITOPE CHING MD Ot 397.0 TRICUSPID VALVE DISEASE 02/12/2017 TEMITOPE CHING MD Ot 424.0 MITRAL VALVE DISORDER 02/12/2017 TEMITOPE CHING MD Ot 427.69 PREMATURE BEATS NEC 02/12/2017 TEMITOPE CHING MD Ot 785.1 PALPITATIONS 02/12/2017 TEMITOPE CHING MD Ot 786.50 CHEST PAIN NOS 02/12/2017 MORIAH HERRERA MD Ot 719.41 JOINT PAIN-SHLDER 02/12/2017 MORIAH HERRERA MD Ot 719.61 JOINT SYMPTOM NEC-SHLDER 02/12/2017 MOIRAH HERRERA MD Ot V76.12 OTH SCREEN MAMMO-MALIGN NEOPLASM OF [place] 02/12/2017 FENNESTOR ALICIA DO S Ot 218.9 UTERINE LEIOMYOMA NOS 02/12/2017 NESTOR STONER DO S Ot 625.9 FEM GENITAL SYMPTOMS NOS 02/12/2017 MORIAH HERRERA MD Ot 793.80 UNSPEC ABNORMAL MAMMOGRAM 02/12/2017 MORIAH HERRERA MD Ot 611.72 LUMP OR MASS IN BREAST 02/12/2017 MORIAH HERRERA MD Ot R92.8 OTH ABN AND INCONCLUSIVE FINDINGS ON DX 02/12/2017 JIMMY THOMPSON R CAGE UNLOADER Ot R05 COUGH 02/12/2017 MORIAH HERRERA MD Ot R92.8 OTH ABN AND INCONCLUSIVE FINDINGS ON DX 04/24/2017 TEMITOPE CHING MD Ot 427.69 PREMATURE BEATS NEC 04/24/2017 TEMITOPE CHING MD Ot 785.1 PALPITATIONS 04/24/2017 TEMITOPE CHING MD Ot 786.50 CHEST PAIN NOS 04/24/2017 TEMITOPE CHING MD Ot 397.0 TRICUSPID VALVE DISEASE 04/24/2017 TEMITOPE CHING MD Ot 424.0 MITRAL VALVE DISORDER 04/24/2017 TEMITOPE CHING MD Ot 427.69 PREMATURE BEATS NEC 04/24/2017 TEMITOPE CHING MD Ot 785.1 PALPITATIONS 04/24/2017 TEMITOPE CHING MD Ot 786.50 CHEST PAIN NOS 04/24/2017 MORIAH HERRERA MD Ot 719.41 JOINT PAIN-SHLDER 04/24/2017 MORIAH HERRERA MD Ot 719.61 JOINT SYMPTOM NEC-SHLDER 04/24/2017 MORIAH HERRERA MD Ot V76.12 OTH SCREEN MAMMO-MALIGN NEOPLASM OF [place] 04/24/2017 [place]IA[place] , NESTOR S Ot 218.9 UTERINE LEIOMYOMA NOS 04/24/2017 [place] DO, NESTOR S Ot 625.9 FEM GENITAL SYMPTOMS NOS 04/24/2017 SHARON JOHNS, MORIAH Jara Ot 793.80 UNSPEC ABNORMAL MAMMOGRAM 04/24/2017 MORIAH HERRERA MD Ot 611.72 LUMP OR MASS IN BREAST 04/24/2017 SHARON JOHNS, MORIAH Jara Ot R92.8 OTH ABN AND INCONCLUSIVE FINDINGS ON DX 04/24/2017 JIMMY THOMPSON R CAGE UNLOADER Ot R05 COUGH 04/24/2017 MORIAH HERRERA MD Ot R92.8 OTH ABN AND INCONCLUSIVE FINDINGS ON DX 04/30/2017 MORIAH HERRERA MD Ot M77.01 MEDIAL EPICONDYLITIS, RIGHT ELBOW 04/30/2017 MORIAH HERRERA MD Ot M77.02 MEDIAL EPICONDYLITIS, LEFT ELBOW 05/08/2017 JIMMY THOMPSON CAGE UNLOADER Ot R05 COUGH 05/09/2017 TEMITOPE CHING MD Ot 427.69 PREMATURE BEATS NEC 05/09/2017 TEMITOPE CHING MD Ot 785.1 PALPITATIONS 05/09/2017 TEMITOPE CHING MD Ot 786.50 CHEST PAIN NOS 05/09/2017 TEMITOPE CHING MD J Ot 397.0 TRICUSPID VALVE DISEASE 05/09/2017 TEMITOPE CHING MD Ot 424.0 MITRAL VALVE DISORDER 05/09/2017 TEMITOPE CHING MD Ot 427.69 PREMATURE BEATS NEC 05/09/2017 TEMITOPE CHING MD Ot 785.1 PALPITATIONS 05/09/2017 TEMITOPE CHING MD Ot 786.50 CHEST PAIN NOS 05/09/2017 MORIAH HERRERA MD Ot 719.41 JOINT PAIN-SHLDER 05/09/2017 MORIAH HERRERA MD Ot 719.61 JOINT SYMPTOM NEC-SHLDER 05/09/2017 MORIAH HERRERA MD Ot V76.12 OTH SCREEN MAMMO-MALIGN NEOPLASM OF [place] 05/09/2017 NESTOR STONER DO S Ot 218.9 UTERINE LEIOMYOMA NOS 05/09/2017 NESTOR STONER DO S Ot 625.9 FEM GENITAL SYMPTOMS NOS 05/09/2017 MORIAH HERRERA MD Ot 793.80 UNSPEC ABNORMAL MAMMOGRAM 05/09/2017 MORIAH HERRERA MD Ot 611.72 LUMP OR MASS IN BREAST 05/09/2017 MORIAH HERRERA MD Ot R92.8 OTH ABN AND INCONCLUSIVE FINDINGS ON DX 05/09/2017 JIMMY THOMPSON CAGE UNLOADER Ot R05 COUGH 05/09/2017 MORIAH HERRERA MD Ot R92.8 OTH ABN AND INCONCLUSIVE FINDINGS ON DX 05/09/2017 MORIAH HERRERA MD Ot M77.01 MEDIAL EPICONDYLITIS, RIGHT ELBOW 05/09/2017 MORIAH HERRERA MD Ot M77.02 MEDIAL EPICONDYLITIS, LEFT ELBOW 05/10/2017 TEMITOPE CHING MD Ot 427.69 PREMATURE BEATS NEC 05/10/2017 TEMITOPE CHING MD Ot 785.1 PALPITATIONS 05/10/2017 TEMITOPE CHING MD Ot 786.50 CHEST PAIN NOS 05/10/2017 TEMITOPE CHING MD J Ot 397.0 TRICUSPID VALVE DISEASE 05/10/2017 TEMITOPE CHING MD J Ot 424.0 MITRAL VALVE DISORDER 05/10/2017 TEMITOPE CHING MD Ot 427.69 PREMATURE BEATS NEC 05/10/2017 TEMITOPE CHING MD Ot 785.1 PALPITATIONS 05/10/2017 TEMITOPE CHING MD Ot 786.50 CHEST PAIN NOS 05/10/2017 MORIAH HERRERA MD Ot 719.41 JOINT PAIN-SHLDER 05/10/2017 MORIAH HERRERA MD Ot 719.61 JOINT SYMPTOM NEC-SHLDER 05/10/2017 MORIAH HERRERA MD Ot V76.12 OTH SCREEN MAMMO-MALIGN NEOPLASM OF [place] 05/10/2017 NESTOR STONER DO S Ot 218.9 UTERINE LEIOMYOMA NOS 05/10/2017 NESTOR STONER DO Ot 625.9 FEM GENITAL SYMPTOMS NOS 05/10/2017 MORIAH HERRERA MD Ot 793.80 UNSPEC ABNORMAL MAMMOGRAM 05/10/2017 MORIAH HERRERA MD Ot 611.72 LUMP OR MASS IN BREAST 05/10/2017 MORIAH HERRERA MD Ot R92.8 OTH ABN AND INCONCLUSIVE FINDINGS ON DX 05/10/2017 JIMMY THOMPSON CAGE UNLOADER Ot R05 COUGH 05/10/2017 MORIAH HERRERA MD Ot R92.8 OTH ABN AND INCONCLUSIVE FINDINGS ON DX 05/10/2017 MORIAH HERRERA MD Ot M77.01 MEDIAL EPICONDYLITIS, RIGHT ELBOW 05/10/2017 MORIAH HERRERA MD Ot M77.02 MEDIAL EPICONDYLITIS, LEFT ELBOW 05/11/2017 MORIAH HERRERA MD Ot M77.01 MEDIAL EPICONDYLITIS, RIGHT ELBOW 05/11/2017 MORIAH HERRERA MD Ot M77.02 MEDIAL EPICONDYLITIS, LEFT ELBOW 05/14/2017 HUMZA JOHNS, TEMITOPE J Ot 427.69 PREMATURE BEATS NEC 05/14/2017 TEMITOPE CHING MD J Ot 785.1 PALPITATIONS 05/14/2017 TEMITOPE CHING MD Ot 786.50 CHEST PAIN NOS 05/14/2017 TEMITOPE CHING MD J Ot 397.0 TRICUSPID VALVE DISEASE 05/14/2017 TEMITOPE CHING MD J Ot 424.0 MITRAL VALVE DISORDER 05/14/2017 TEMITOPE CHING MD J Ot 427.69 PREMATURE BEATS NEC 05/14/2017 TEMITOPE CHING MD J Ot 785.1 PALPITATIONS 05/14/2017 TEMITOPE CHING MD Ot 786.50 CHEST PAIN NOS 05/14/2017 SHARON JOHNS, MORIAH Jara Ot 719.41 JOINT PAIN-SHLDER 05/14/2017 MORIAH HERRERA MD Ot 719.61 JOINT SYMPTOM NEC-SHLDER 05/14/2017 MORIAH HERRERA MD Ot V76.12 OTH SCREEN MAMMO-MALIGN NEOPLASM OF [place] 05/14/2017 NESTOR STONER DO S Ot 218.9 UTERINE LEIOMYOMA NOS 05/14/2017 NESTOR STONER DO S Ot 625.9 FEM GENITAL SYMPTOMS NOS 05/14/2017 SHARON JOHNS, MORIAH Jara Ot 793.80 UNSPEC ABNORMAL MAMMOGRAM 05/14/2017 MORIAH HERRERA MD Ot 611.72 LUMP OR MASS IN BREAST 05/14/2017 MORIAH HERRERA MD Ot R92.8 OTH ABN AND INCONCLUSIVE FINDINGS ON DX 05/14/2017 JIMMY THOMPSON CAGE UNLOADER Ot R05 COUGH 05/14/2017 MORIAH HERRERA MD Ot R92.8 OTH ABN AND INCONCLUSIVE FINDINGS ON DX 05/14/2017 SHARON JOHNS, MORIAH Jara Ot M77.01 MEDIAL EPICONDYLITIS, RIGHT ELBOW 05/14/2017 SHARON JOHNS, MORIAH Jara Ot M77.02 MEDIAL EPICONDYLITIS, LEFT ELBOW 05/14/2017 TEMITOPE CHING MD Ot G47.33 OBSTRUCTIVE SLEEP APNEA (ADULT) (PEDIATR 05/14/2017 TEMITOPE CHING MD Ot 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 DEPOLARIZATION 05/14/2017 TEMITOPE CHING MD Ot R00.2 PALPITATIONS 05/14/2017 TEMITOPE CHING MD Ot R06.09 OTHER FORMS OF DYSPNEA 05/15/2017 TEMITOPE CHING MD Ot G47.33 OBSTRUCTIVE SLEEP APNEA (ADULT) (PEDIATR 05/15/2017 TEMITOPE CHING MD Ot 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 DEPOLARIZATION 05/15/2017 TEMITOPE CHING MD Ot R00.2 PALPITATIONS 05/15/2017 TEMITOPE CHING MD Ot R06.09 OTHER FORMS OF DYSPNEA 05/25/2017 TEMITOPE CHING MD Ot G47.33 OBSTRUCTIVE SLEEP APNEA (ADULT) (PEDIATR 05/25/2017 TEMITOPE CHING MD Ot 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 DEPOLARIZATION 05/25/2017 TEMITOPE CHING MD Ot R00.2 PALPITATIONS 05/25/2017 TEMITOPE CHING MD Ot R06.09 OTHER FORMS OF DYSPNEA 05/30/2017 TEMITOPE CHING MD Ot G47.33 OBSTRUCTIVE SLEEP APNEA (ADULT) (PEDIATR 05/30/2017 TEMITOPE CHING MD Ot 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 DEPOLARIZATION 05/30/2017 TEMITOPE CHING MD Ot R00.2 PALPITATIONS 05/30/2017 TEMITOPE CHING MD Ot R06.09 OTHER FORMS OF DYSPNEA 05/30/2017 TEMITOPE CHING MD Ot G47.33 OBSTRUCTIVE SLEEP APNEA (ADULT) (PEDIATR 05/30/2017 TEMITOPE CHING MD Ot 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 DEPOLARIZATION 05/30/2017 TEMITOPE CHING MD Ot R00.2 PALPITATIONS 05/30/2017 TEMITOPE CHING MD Ot R06.09 OTHER FORMS OF DYSPNEA 06/20/2017 DANAE JOHNS, MATILDE Ot D25.9 LEIOMYOMA OF UTERUS, UNSPECIFIED 06/20/2017 MATILDE FINK MD Ot D47.3 ESSENTIAL (HEMORRHAGIC) THROMBOCYTHEMIA 06/20/2017 MATILDE FINK MD, Ot D50.9 IRON DEFICIENCY ANEMIA, UNSPECIFIED 06/20/2017 MATILDE FINK MD Ot E03.9 HYPOTHYROIDISM, UNSPECIFIED 06/20/2017 MATILDE FINK MD Ot E66.9 OBESITY, UNSPECIFIED 06/20/2017 MATILDE FINK MD Ot K21.9 GASTRO-ESOPHAGEAL REFLUX DISEASE WITHOUT 06/20/2017 MATILDE FINK MD Ot R06.09 OTHER FORMS OF DYSPNEA 06/25/2017 TEMITOPE CHING MD Ot 427.69 PREMATURE BEATS NEC 06/25/2017 TEMITOPE CHING MD Ot 785.1 PALPITATIONS 06/25/2017 TEMITOPE CHING MD Ot 786.50 CHEST PAIN NOS 06/25/2017 TEMITOPE CHING MD J Ot 397.0 TRICUSPID VALVE DISEASE 06/25/2017 TEMITOPE CHING MD J Ot 424.0 MITRAL VALVE DISORDER 06/25/2017 TEMITOPE CHING MD Ot 427.69 PREMATURE BEATS NEC 06/25/2017 TEMITOPE CHING MD Ot 785.1 PALPITATIONS 06/25/2017 TEMITOPE CHING MD Ot 786.50 CHEST PAIN NOS 06/25/2017 SHARON JOHNS, MORIAH Jara Ot 719.41 JOINT PAIN-SHLDER 06/25/2017 MORIAH HERRERA MD Ot 719.61 JOINT SYMPTOM NEC-SHLDER 06/25/2017 MORIAH HERRERA MD Ot V76.12 OTH SCREEN MAMMO-MALIGN NEOPLASM OF [place] 06/25/2017 NESTOR STONER DO S Ot 218.9 UTERINE LEIOMYOMA NOS 06/25/2017 NESTOR STONER DO S Ot 625.9 FEM GENITAL SYMPTOMS NOS 06/25/2017 MORIAH HERRERA MD Ot 793.80 UNSPEC ABNORMAL MAMMOGRAM 06/25/2017 MORIAH HERRERA MD Ot 611.72 LUMP OR MASS IN BREAST 06/25/2017 MORIAH HERRERA MD Ot R92.8 OTH ABN AND INCONCLUSIVE FINDINGS ON DX 06/25/2017 JIMMY THOMPSON CAGE UNLOADER Ot R05 COUGH 06/25/2017 HERRERA MD, MORIAH L Ot R92.8 OTH ABN AND INCONCLUSIVE FINDINGS ON DX 06/25/2017 MORIAH HERRERA MD Ot M77.01 MEDIAL EPICONDYLITIS, RIGHT ELBOW 06/25/2017 MORIAH HERRERA MD, Ot M77.02 MEDIAL EPICONDYLITIS, LEFT ELBOW 06/25/2017 TEMITOPE CHING MD, Ot G47.33 OBSTRUCTIVE SLEEP APNEA (ADULT) (PEDIATR 06/25/2017 TEMITOPE CHING MD Ot 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 DEPOLARIZATION 06/25/2017 TEMITOPE CHING MD Ot R00.2 PALPITATIONS 06/25/2017 TEMITOPE CHING MD Ot R06.09 OTHER FORMS OF DYSPNEA 06/25/2017 MATILDE FINK MD Ot D25.9 LEIOMYOMA OF UTERUS, UNSPECIFIED 06/25/2017 MATILDE FINK MD, Ot D47.3 ESSENTIAL (HEMORRHAGIC) THROMBOCYTHEMIA 06/25/2017 MATILDE FINK MD Ot D50.9 IRON DEFICIENCY ANEMIA, UNSPECIFIED 06/25/2017 MATILDE FINK MD Ot E03.9 HYPOTHYROIDISM, UNSPECIFIED 06/25/2017 MATILDE FINK MD Ot E66.9 OBESITY, UNSPECIFIED 06/25/2017 MATILDE FINK MD Ot K21.9 GASTRO-ESOPHAGEAL REFLUX DISEASE WITHOUT 06/25/2017 MATILDE FINK MD Ot R06.09 OTHER FORMS OF DYSPNEA 07/03/2017 TEMITOPE CHING MD, Ot G47.33 OBSTRUCTIVE SLEEP APNEA (ADULT) (PEDIATR 07/03/2017 TEMITOPE CHING MD Ot 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 DEPOLARIZATION 07/03/2017 TEMITOPE CHING MD Ot R00.2 PALPITATIONS 07/03/2017 TEMITOPE CHING MD Ot R06.09 OTHER FORMS OF DYSPNEA 07/11/2017 TEMITOPE CHING MD Ot 427.69 PREMATURE BEATS NEC 07/11/2017 TEMITOPE CHING MD Ot 785.1 PALPITATIONS 07/11/2017 TEMITOPE CHING MD Ot 786.50 CHEST PAIN NOS 07/11/2017 TEMITOPE CHING MD Ot 397.0 TRICUSPID VALVE DISEASE 07/11/2017 TEMITOPE CHING MD Ot 424.0 MITRAL VALVE DISORDER 07/11/2017 TEMITOPE CHING MD Ot 427.69 PREMATURE BEATS NEC 07/11/2017 HUMZA JOHNS, TEMITOPE Taveras Ot 785.1 PALPITATIONS 07/11/2017 TEMITOPE CHING MD Ot 786.50 CHEST PAIN NOS 07/11/2017 SHARON JOHNS, MORIAH Jara Ot 719.41 JOINT PAIN-SHLDER 07/11/2017 MORIAH HERRERA MD Ot 719.61 JOINT SYMPTOM NEC-SHLDER 07/11/2017 MORIAH HERRERA MD Ot V76.12 OTH SCREEN MAMMO-MALIGN NEOPLASM OF [place] 07/11/2017 GEORGIANA MARRERO NESTOR S Ot 218.9 UTERINE LEIOMYOMA NOS 07/11/2017 FENNESTOR ALICIA DO S Ot 625.9 FEM GENITAL SYMPTOMS NOS 07/11/2017 SHARON JOHNS, MORIAH Jara Ot 793.80 UNSPEC ABNORMAL MAMMOGRAM 07/11/2017 MORIAH HERRERA MD Ot 611.72 LUMP OR MASS IN BREAST 07/11/2017 MORIAH HERRERA MD Ot R92.8 OTH ABN AND INCONCLUSIVE FINDINGS ON DX 07/11/2017 JIMMY THOMPSON CAGE UNLOADER Ot R05 COUGH 07/11/2017 MORIAH HERRERA MD Ot R92.8 OTH ABN AND INCONCLUSIVE FINDINGS ON DX 07/11/2017 MORIAH HERRERA MD Ot M77.01 MEDIAL EPICONDYLITIS, RIGHT ELBOW 07/11/2017 MORIAH HRERERA MD Ot M77.02 MEDIAL EPICONDYLITIS, LEFT ELBOW 07/11/2017 TEMITOPE CHING MD Ot G47.33 OBSTRUCTIVE SLEEP APNEA (ADULT) (PEDIATR 07/11/2017 TEMITOPE CHING MD Ot 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 DEPOLARIZATION 07/11/2017 TEMITOPE CHING MD Ot R00.2 PALPITATIONS 07/11/2017 TEMITOPE CHING MD Ot R06.09 OTHER FORMS OF DYSPNEA 07/11/2017 TEMITOPE CHING MD Ot G47.33 OBSTRUCTIVE SLEEP APNEA (ADULT) (PEDIATR 07/11/2017 TEMITOPE CHING MD Ot 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 DEPOLARIZATION 07/11/2017 TEMITOPE CHING MD Ot R00.2 PALPITATIONS 07/11/2017 TEMITOPE CHING MD Ot R06.09 OTHER FORMS OF DYSPNEA 07/11/2017 DANAE JOHNS, MATILDE Ot D25.9 LEIOMYOMA OF UTERUS, UNSPECIFIED 07/11/2017 DANAE JOHNS, MATILDE Ot D47.3 ESSENTIAL (HEMORRHAGIC) THROMBOCYTHEMIA 07/11/2017 MATILDE FINK MD Ot D50.9 IRON DEFICIENCY ANEMIA, UNSPECIFIED 07/11/2017 MATILDE FINK MD Ot E03.9 HYPOTHYROIDISM, UNSPECIFIED 07/11/2017 MATILDE FINK MD Ot E66.9 OBESITY, UNSPECIFIED 07/11/2017 MATILDE FINK MD Ot K21.9 GASTRO-ESOPHAGEAL REFLUX DISEASE WITHOUT 07/11/2017 MATILDE FINK MD Ot R06.09 OTHER FORMS OF DYSPNEA 07/11/2017 NESTOR STONER DO S Ot D25.9 LEIOMYOMA OF UTERUS, UNSPECIFIED 07/11/2017 TEMITOPE CHING MD Ot G47.33 OBSTRUCTIVE SLEEP APNEA (ADULT) (PEDIATR 07/11/2017 TEMITOPE CHING MD Ot 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 DEPOLARIZATION 07/11/2017 TEMITOPE CHING MD Ot R00.2 PALPITATIONS 07/11/2017 TEMITOPE CHING MD Ot R06.09 OTHER FORMS OF DYSPNEA 07/15/2017 NESTOR STONER DO S Ot D25.9 LEIOMYOMA OF UTERUS, UNSPECIFIED 07/20/2017 CARRIECH DONESTOR S Ot D25.0 SUBMUCOUS LEIOMYOMA OF UTERUS 07/20/2017 NESTOR STONER DO S Ot D25.1 INTRAMURAL LEIOMYOMA OF UTERUS 07/20/2017 NESTOR STONER DO S Ot D25.2 SUBSEROSAL LEIOMYOMA OF UTERUS 07/20/2017 NESTOR STONER DO S Ot D50.9 IRON DEFICIENCY ANEMIA, UNSPECIFIED 07/20/2017 NESTOR STONER DO S Ot E03.9 HYPOTHYROIDISM, UNSPECIFIED 07/20/2017 CARRIECH NESTOR MARRERO S Ot E66.01 MORBID (SEVERE) OBESITY DUE TO EXCESS CA 07/20/2017 NESTOR STONER DO S Ot G47.33 OBSTRUCTIVE SLEEP APNEA (ADULT) (PEDIATR 07/20/2017 GEORGIANA MARRERO NESTOR S Ot G62.9 POLYNEUROPATHY, UNSPECIFIED 07/20/2017 CARRIECH DO NESTOR S Ot I10 ESSENTIAL (PRIMARY) HYPERTENSION 07/20/2017 NESTOR STONER DO S Ot 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 DEPOLARIZATION 07/20/2017 NESTOR STONER DO S Ot K21.9 GASTRO-ESOPHAGEAL REFLUX DISEASE WITHOUT 07/20/2017 NESTOR STONER DO Ot N80.0 ENDOMETRIOSIS OF UTERUS 07/20/2017 NESTOR STONER DO Ot N83.11 CORPUS LUTEUM CYST OF RIGHT OVARY 07/20/2017 NESTOR STONER DO Ot N93.9 ABNORMAL UTERINE AND VAGINAL BLEEDING, U 07/20/2017 NESTOR STONER DO Ot Z68.37 BODY MASS INDEX (BMI) 37.0-37.9, ADULT 07/20/2017 NESTOR STONER DO Ot 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 07/25/2017 TEMITOPE CHING MD Ot G47.33 OBSTRUCTIVE SLEEP APNEA (ADULT) (PEDIATR 07/25/2017 TEMITOPE CHING MD Ot 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 DEPOLARIZATION 07/25/2017 TEMITOPE CHING MD Ot R00.2 PALPITATIONS 07/25/2017 TEMITOPE CHING MD Ot R06.09 OTHER FORMS OF DYSPNEA 07/25/2017 TEMITOPE CHING MD Ot G47.33 OBSTRUCTIVE SLEEP APNEA (ADULT) (PEDIATR 07/25/2017 TEMITOPE CHING MD Ot 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 DEPOLARIZATION 07/25/2017 TEMITOPE CHING MD Ot R00.2 PALPITATIONS 07/25/2017 TEMITOPE CHING MD Ot R06.09 OTHER FORMS OF DYSPNEA 07/25/2017 NESTOR STONER DO Ot D25.9 LEIOMYOMA OF UTERUS, UNSPECIFIED 07/26/2017 SHARON JOHNS, MORIAH Jara Ot M77.01 MEDIAL EPICONDYLITIS, RIGHT ELBOW 07/26/2017 SHARON JOHNS, MORIAH Jara Ot M77.02 MEDIAL EPICONDYLITIS, LEFT ELBOW 07/26/2017 NESTOR STONER DO Ot D25.0 SUBMUCOUS LEIOMYOMA OF UTERUS 07/26/2017 NESTOR STONER DO Ot D25.1 INTRAMURAL LEIOMYOMA OF UTERUS 07/26/2017 NESTOR STONER DO Ot D25.2 SUBSEROSAL LEIOMYOMA OF UTERUS 07/26/2017 NESTOR STONER DO Ot D50.9 IRON DEFICIENCY ANEMIA, UNSPECIFIED 07/26/2017 NESTOR STONER DO Ot E03.9 HYPOTHYROIDISM, UNSPECIFIED 07/26/2017 NESTOR STONER DO Ot E66.01 MORBID (SEVERE) OBESITY DUE TO EXCESS CA 07/26/2017 NESTOR STONER DO Ot G47.33 OBSTRUCTIVE SLEEP APNEA (ADULT) (PEDIATR 07/26/2017 NESTOR STONER DO Ot G62.9 POLYNEUROPATHY, UNSPECIFIED 07/26/2017 NESTOR STONER DO Ot I10 ESSENTIAL (PRIMARY) HYPERTENSION 07/26/2017 NESTOR STONER DO Ot 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 DEPOLARIZATION 07/26/2017 NESTOR STONER DO, Ot K21.9 GASTRO-ESOPHAGEAL REFLUX DISEASE WITHOUT 07/26/2017 NESTOR STONER DO Ot N80.0 ENDOMETRIOSIS OF UTERUS 07/26/2017 NESTOR STONER DO Ot N83.11 CORPUS LUTEUM CYST OF RIGHT OVARY 07/26/2017 NESTOR STONER DO Ot N93.9 ABNORMAL UTERINE AND VAGINAL BLEEDING, U 07/26/2017 NESTOR STONER DO Ot Z68.37 BODY MASS INDEX (BMI) 37.0-37.9, ADULT 07/26/2017 NESTOR STONER DO, Ot Z79.899 OTHER USP (CURRENT) DRUG THERAPY 07/27/2017 SHARON JOHNS, MORIAH Jara Ot M77.01 MEDIAL EPICONDYLITIS, RIGHT ELBOW 07/27/2017 SHARON JOHNS, MORIAH Jara Ot M77.02 MEDIAL EPICONDYLITIS, LEFT ELBOW 07/28/2017 MATILDE FINK MD, Ot D25.9 LEIOMYOMA OF UTERUS, UNSPECIFIED 07/28/2017 MATILDE FINK MD Ot D47.3 ESSENTIAL (HEMORRHAGIC) THROMBOCYTHEMIA 07/28/2017 MATILDE FINK MD Ot D50.9 IRON DEFICIENCY ANEMIA, UNSPECIFIED 07/28/2017 MATILDE FINK MD Ot E03.9 HYPOTHYROIDISM, UNSPECIFIED 07/28/2017 MATILDE FINK MD Ot E66.9 OBESITY, UNSPECIFIED 07/28/2017 MATILDE FINK MD, Ot K21.9 GASTRO-ESOPHAGEAL REFLUX DISEASE WITHOUT 07/28/2017 MATILDE FNIK MD Ot R06.09 OTHER FORMS OF DYSPNEA 07/28/2017 NESTOR STONER DO Ot D25.0 SUBMUCOUS LEIOMYOMA OF UTERUS 07/28/2017 NESTOR STONER DO Ot D25.1 INTRAMURAL LEIOMYOMA OF UTERUS 07/28/2017 NESTOR STONER DO Ot D25.2 SUBSEROSAL LEIOMYOMA OF UTERUS 07/28/2017 GEORGIANA MARRERO NESTOR Harden Ot D50.9 IRON DEFICIENCY ANEMIA, UNSPECIFIED 07/28/2017 GEORGIANA MARRERO NESTOR Harden Ot E03.9 HYPOTHYROIDISM, UNSPECIFIED 07/28/2017 CARRIMARAL DO NESTOR Harden Ot E66.01 MORBID (SEVERE) OBESITY DUE TO EXCESS CA 07/28/2017 CARRIMARAL DO NESTOR Harden Ot G47.33 OBSTRUCTIVE SLEEP APNEA (ADULT) (PEDIATR 07/28/2017 GEORGIANA MARRERO NESTOR Harden Ot G62.9 POLYNEUROPATHY, UNSPECIFIED 07/28/2017 NESTOR TSONER DO Ot I10 ESSENTIAL (PRIMARY) HYPERTENSION 07/28/2017 GEORGIANA MARRERO NESTOR Harden Ot 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 DEPOLARIZATION 07/28/2017 NESTOR STONER DO Ot K21.9 GASTRO-ESOPHAGEAL REFLUX DISEASE WITHOUT 07/28/2017 NESTOR STONER DO Ot N80.0 ENDOMETRIOSIS OF UTERUS 07/28/2017 NESTOR STONER DO Fina Ot N83.11 CORPUS LUTEUM CYST OF RIGHT OVARY 07/28/2017 NESTOR STONER DO, Ot N93.9 ABNORMAL UTERINE AND VAGINAL BLEEDING, U 07/28/2017 NESTOR STONER DO Fina Ot Z68.37 BODY MASS INDEX (BMI) 37.0-37.9, ADULT 07/28/2017 GEORGIANA MARRERO NESTOR Harden Ot 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 Results Test Result Range Influenza virus A and B antigen detection - 10/12/16 12:34 FLU RESULT NEGATIVE FOR INFLUENZA A AND B ANTIGENS BY [facility] Complete blood count (CBC) with automated white blood cell (WBC) differential - 12/22/16 10:20 Blood leukocytes automated count (number/volume) 6.7 10*3/uL 4.3-11.0 Blood erythrocytes automated count (number/volume) 4.51 10*6/uL 4.35-5.85 Venous blood hemoglobin measurement (mass/volume) 8.4 g/dL 11.5-16.0 Blood hematocrit (volume fraction) 29 % 35-52 Automated erythrocyte mean corpuscular volume 64 [[facility] [place]_us] 80-99 Automated erythrocyte mean corpuscular hemoglobin (mass per erythrocyte) 19 pg 25-34 Automated erythrocyte mean corpuscular hemoglobin concentration measurement ( mass/volume) 29 g/dL 32-36 Automated erythrocyte distribution width ratio 19.0 % 10.0-14.5 Automated blood platelet count (count/volume) 426 10*3/uL 130-400 Automated blood platelet mean volume measurement 9.6 [foz_us] 7.4-10.4 Automated blood neutrophils/100 leukocytes 68 % 42-75 Automated blood lymphocytes/100 leukocytes 21 % 12-44 Blood monocytes/100 leukocytes 8 % 0-12 Automated blood eosinophils/100 leukocytes 3 % 0-10 Automated blood basophils/100 leukocytes 1 % 0-10 Blood neutrophils automated count (number/volume) 4.6 10*3 1.8-7.8 Blood lymphocytes automated count (number/volume) 1.4 10*3 1.0-4.0 Blood monocytes automated count (number/volume) 0.5 10*3 0.0-1.0 Automated eosinophil count 0.2 10*3/uL 0.0-0.3 Automated blood basophil count (count/volume) 0.1 10*3/uL 0.0-0.1 Methicillin resistant Staphylococcus aureus (MRSA) screening culture - 10:20 Methicillin resistant Staphylococcus aureus (MRSA) screening culture NEG NRG Urine beta human chorionic gonadotropin (hCG) measurement - 12/28/16 07:55 Urine beta human chorionic gonadotropin (hCG) measurement NEGATIVE NEGATIVE Methicillin resistant Staphylococcus aureus (MRSA) screening culture - 09:41 Methicillin resistant Staphylococcus aureus (MRSA) screening culture NEG NRG Urine beta human chorionic gonadotropin (hCG) measurement - 07/19/17 10:00 Urine beta human chorionic gonadotropin (hCG) measurement NEGATIVE NEGATIVE Blood type T Indirect antibody screen panel - 07/19/17 10:48 ABO+Rh group AN NR Transfusion band number [id number] NR Blood group antibody screen NEGATIVE NR Complete blood count (CBC) with automated white blood cell (WBC) differential - 07/20/17 05:40 Blood leukocytes automated count (number/volume) 13.1 10*3/uL 4.3-11.0 Blood erythrocytes automated count (number/volume) 4.99 10*6/uL 4.35-5.85 Venous blood hemoglobin measurement (mass/volume) 13.4 g/dL 11.5-16.0 Blood hematocrit (volume fraction) 41 % 35-52 Automated erythrocyte mean corpuscular volume 82 [foz_us] 80-99 Automated erythrocyte mean corpuscular hemoglobin (mass per erythrocyte) 27 pg 25-34 Automated erythrocyte mean corpuscular hemoglobin concentration measurement ( mass/volume) 33 g/dL 32-36 Automated erythrocyte distribution width ratio TNP 10.0- 14.5 Automated blood platelet count (count/volume) 267 10*3/uL 130-400 Automated blood platelet mean volume measurement 10.2 [foz_us] 7.4-10.4 Automated blood neutrophils/100 leukocytes 79 % 42-75 Automated blood lymphocytes/100 leukocytes 12 % 12-44 Blood monocytes/100 leukocytes 9 % 0-12 Automated blood eosinophils/100 leukocytes 0 % 0-10 Automated blood basophils/100 leukocytes 0 % 0-10 Blood neutrophils automated count (number/volume) 10.4 10*3 1.8-7.8 Blood lymphocytes automated count (number/volume) 1.6 10*3 1.0-4.0 Blood monocytes automated count (number/volume) 1.1 10*3 0.0-1.0 Automated eosinophil count 0.0 10*3/uL 0.0-0.3 Automated blood basophil count (count/volume) 0.0 10*3/uL 0.0-0.1 Comprehensive metabolic panel - 07/20/17 05:40 Serum or plasma sodium measurement (moles/volume) 137 mmol/L 135-145 Serum or plasma potassium measurement (moles/volume) 3.7 mmol/L 3.6-5.0 Serum or plasma chloride measurement (moles/volume) 102 mmol/L 98-107 Carbon dioxide 25 mmol/L 21-32 Serum or plasma anion gap determination (moles/volume) 10 mmol/L 5-14 Serum or plasma urea nitrogen measurement (mass/volume) 10 mg/dL 7-18 Serum or plasma creatinine measurement (mass/volume) 0.83 mg/dL 0.60-1.30 Serum or plasma urea nitrogen/creatinine mass ratio 12 NRG Serum or plasma creatinine measurement with calculation of estimated glomerular filtration rate > NRG Serum or plasma glucose measurement (mass/volume) 107 mg/dL 70-105 Serum or plasma calcium measurement (mass/volume) 8.7 mg/dL 8.5-10.1 Serum or plasma total bilirubin measurement (mass/volume) 0.5 mg/dL 0.1-1.0 Serum or plasma alkaline phosphatase measurement (enzymatic activity/volume) 87 U/L 40-136 Serum or plasma aspartate aminotransferase measurement (enzymatic activity/ volume) 20 U/L 5-34 Serum or plasma alanine aminotransferase measurement (enzymatic activity/volume ) 32 U/L 0-55 Serum or plasma protein measurement (mass/volume) 6.9 g/dL 6.4-8.2 Serum or plasma albumin measurement (mass/volume) 3.6 g/dL 3.2-4.5 Encounters ACCT No. Visit Date/Time Discharge Status Pt. Type Provider Facility Loc./Unit Complaint [id number] 07/29/2017 00:54:00 07/29/2017 23:59:59 CLS Preadmit MATILDE FINK MD [facility] ONC [id number] 06/25/2017 10:11:00 07/28/2017 00:01:00 DIS Outpatient MATILDE FINK MD [facility] ONC [id number] 07/27/2017 00:09:00 07/27/2017 23:59:59 CLS Preadmit MORIAH HERRERA MD [facility] REHAB BILATERAL EPICONDYLITIS ; BILATERAL KNEE OA [id number] 07/26/2017 09:47:00 07/26/2017 23:59:59 CLS Outpatient NESTOR STONER DO [facility] RAD N99.81 INTRAOPERATIVE INJURY OF BLADDER [id number] 06/22/2017 11:41:00 07/26/2017 00:01:00 DIS Outpatient MORIAH HERRERA MD [facility] REHAB BILATERAL EPICONDYLITIS; BILATERAL KNEE OA [id number] 07/19/2017 09:55:00 07/20/2017 12:15:00 DIS Outpatient NESTOR STONER DO [facility] SDC DUB,FIBROIDS, BLOOD LOSS,ANEMIA [id number] 07/11/2017 09:10:00 07/11/2017 09:45:00 DIS Outpatient NESTOR STONER DO [facility] PREOP FIBROID UTERAS, ANEMIA [id number] 07/09/2017 10:09:00 07/09/2017 23:59:59 CLS Outpatient NESTOR STONER DO [facility] RAD AUB N93.8 [id number] 06/25/2017 07:29:00 06/25/2017 23:59:59 CLS Outpatient TEMITOPE CHING MD [facility] CARD MYERS R06.09, DYSPNEA R06.00 [id number] 06/21/2017 20:00:00 06/21/2017 23:59:59 CLS Preadmit LUCA BARLOW APRN [facility] SLEEP SANDOVAL G47.33 [id number] 05/09/2017 13:17:00 05/09/2017 23:59:59 CLS Outpatient TEMITOPE CHING MD [facility] CARD MYERS R06.09, DYSPNEA R06.00 [id number] 12/28/2016 07:52:00 12/28/2016 13:05:00 DIS Outpatient ERLINDA STOVALL DO [facility] RAD BREAST MASS [id number] 12/22/2016 09:56:00 12/22/2016 10:25:00 DIS Outpatient ERLINDA STOVALL DO [facility] PREOP RIGHT BREAST MASS [id number] 12/06/2016 11:00:00 12/06/2016 23:59:59 CLS Outpatient MORIAH HERRERA MD [facility] RAD HX OF ABN MAMMO [id number] 10/12/2016 12:25:00 10/12/2016 23:59:59 CLS Outpatient JIMMY THOMPSON APRN [facility] LAB COUGH [id number] 10/04/2015 08:57:00 10/04/2015 23:59:59 CLS Outpatient MORIAH HERRERA MD [facility] RAD ABNORMAL MAMMO [id number] 05/10/2015 09:10:00 05/10/2015 23:59:59 CLS Outpatient MORIAH HERRERA MD [facility] RAD [id number] 03/17/2015 11:02:00 03/17/2015 23:59:59 CLS Outpatient CONNOR MCMAHAN DO [facility] RT [id number] 02/10/2015 10:03:00 02/10/2015 23:59:59 CLS Outpatient CARRIMARAL MARRERO NESTOR Fina [facility] RAD [id number] 01/25/2015 12:47:00 01/25/2015 15:08:00 DIS Emergency BRYON RANDHAWA MD [facility] ER IRR HEART RATE [id number] 11/05/2014 09:00:00 11/05/2014 23:59:59 CLS Preadmit CARRIMARAL MARRERO NESTOR Fina [facility] SDC UTERINE FIBROID/PELVIC PAIN AUB [id number] 11/04/2014 07:41:00 11/04/2014 23:59:59 CLS Outpatient MORIAH HERRERA MD [facility] RAD RT BREAST MASS [id number] 09/30/2014 14:09:00 11/04/2014 14:37:00 DIS Outpatient MORIAH HERRERA MD [facility] REHAB L SHOULDER OA AND RC TENDONOPATHY [id number] 10/28/2014 09:28:00 10/28/2014 23:59:59 CLS Outpatient NESTOR STONER DO [facility] PREOP [id number] 10/14/2014 07:57:00 10/14/2014 23:59:59 CLS Outpatient MORIAH HERRERA MD [facility] RAD ABNORMAL MAMMO [id number] 10/07/2014 12:27:00 10/07/2014 23:59:59 CLS Outpatient NESTOR STONER DO [facility] RAD PELVIC PAIN, FIBROID UTERUS [id number] 10/07/2014 08:46:00 10/07/2014 23:59:59 CLS Outpatient MORIAH HERRERA MD [facility] RAD ROUTINE [id number] 08/17/2014 08:29:00 08/17/2014 09:47:00 DIS Emergency WADE YOUSSEF MD [facility] ER CHEST PAIN [id number] 07/29/2014 10:57:00 07/29/2014 23:59:59 CLS Outpatient SHARON JOHNS, MORIAH Jara [facility] RAD LEFT SHOULDER PAIN DECREASED MOBILITY [id number] 05/29/2014 06:12:00 05/29/2014 07:41:00 DIS Emergency DUSTIN JOHNS, ARASELI Rasmussen [facility] ER BACK PAIN [id number] 05/04/2014 08:05:00 05/04/2014 23:59:59 CLS Outpatient TEMITOPE CHING MD [facility] CARD CP,PALPITATIONS,PVC [id number] 04/30/2014 09:33:00 04/30/2014 23:59:59 CLS Outpatient TEMITOPE CHING MD [facility] CARD CP,PALPITATIONS,PVC [id number] 09/01/2013 15:19:00 09/01/2013 23:59:59 CLS Outpatient [id number] 07/08/2013 20:10:00 07/09/2013 06:50:00 DIS Outpatient [id number] 04/07/2013 13:02:00 04/07/2013 23:59:59 CLS Outpatient
--- NOTE | 2017-11-25 15:39 | ED Cough/URI ---
General Chief Complaint: Cough/Cold/Flu Symptoms Stated Complaint: WEAKNESS;SORE THROAT;COUGH Nursing Triage Note: pt reports fever intermittently, chest tightness/cough, body aches, head aches, sore throat. Source: patient, family Exam Limitations: no limitations History of Present Illness Date Seen by Provider: Nov 25, 2017 Time Seen by Provider: 15:39 Initial Comments 51-year-old female patient presents to the emergency department with complaints of intermittent fever up to 102F, chest tightness, cough, generalized body aches, headache, and sore throat since . Reports chest congestion causing her to gag followed by vomiting. Reports vomiting up clear and occasional light yellow mucus. Timing/Duration: constant, other (four-day onset) Severity/Quality: productive cough Prior Episodes/Possible Cause: no prior episodes Modifying Factors: Worse With Coughing Allergies and Home Medications Allergies Coded Allergies: Penicillins (Verified Allergy, Unknown, 01/12/09) Sulfa (Sulfonamide Antibiotics) (Verified Allergy, Unknown, 01/12/09) Home Medications Cephalexin 500 Mg Capsule, 500 MG PO TID for 7 Days Prescribed by: HILLARY GUO on 07/20/17 0843 Cephalexin 500 Mg Capsule, 500 MG PO TID, #21 Ref 0 Prescribed by: ANGELO OROZCO on 11/25/17 180 Docusate Sodium 100 Mg Capsule, 100 MG PO BID PRN for CONSTIPATION-1ST LINE, #40 Prescribed by: NESTOR STONER on 07/19/17 175 Hydrochlorothiazide 25 Mg Tablet, 25 MG PO DAILY, (Reported) Hydrocodone/Acetaminophen 1 Each Tablet, 1-2 EA PO Q6H PRN for Pain-See Instructions, #50 Prescribed by: NESTOR STONER on 07/19/17 175 Ibuprofen 600 Mg Tablet, 600 MG PO Q6H PRN for PAIN-MODERATE, #80 Prescribed by: NESTOR STONER on 07/19/17 175 Levothyroxine Sodium 150 Mcg Tablet, 150 MCG PO DAILY, (Reported) Metoprolol Succinate 25 Mg Tab.er.24h, 25 MG PO DAILY, (Reported) Omeprazole 40 Mg Capsule.dr, 40 MG PO DAILY, (Reported) Prednisone 20 Mg Tab, 40 MG PO DAILY, #8 Ref 0 Prescribed by: ANGELO OROZCO on 11/25/17 180 Simethicone 80 Mg Tab.chew, 40 MG PO TID PRN for INDIGESTION 2ND LINE, #40 Prescribed by: NESTOR STONER on 07/19/17 4061 Constitutional: chills, No diaphoresis, No dizziness, fever, malaise EENTM: No ear pain, No nose congestion, No throat pain Respiratory: see HPI, cough, No dyspnea on exertion, No hemoptysis, phlegm, No short of breath, No stridor, wheezing Cardiovascular: No chest pain, No edema, No palpitations, No syncope Gastrointestinal: see HPI, No abdominal pain, No constipation, No diarrhea, No hematemesis, loss of appetite, No melena, No nausea, vomiting Genitourinary: no symptoms reported Musculoskeletal: no symptoms reported Skin: no symptoms reported Psychiatric/Neurological: No Symptoms Reported All Other Systems Reviewed Negative Unless Noted: Yes (Negative excepted noted.) Past Tulfvkz-Ixuhly-Oowfjp Hx Patient Social History Alcohol Use: Denies Use Recreational Drug Use: No Smoking Status: Never a Smoker Recent Foreign Travel: No Contact w/Someone Who Travel: No Recent Infectious Disease Expo: No Recent Hopitalizations: No Physical Abuse: No Sexual Abuse: No Mistreated: No Fear: No Immunizations Up To Date Date of Influenza Vaccine: Jul 22, 2016 Seasonal Allergies Seasonal Allergies: Yes Surgeries History of Surgeries: Yes (FOOT SX, C/S X3, breast mass) Surgeries: Section, Gallbladder, Hysterectomy, Orthopedic Respiratory History of Respiratory Disorde: Yes Respiratory Disorders: Sleep Apnea Currently Using CPAP: Yes Cardiovascular History of Cardiac Disorders: Yes (hx of PVC's) Cardiac Disorders: Hypertension Neurological History of Neurological Disord: Yes (febrile seizure when little) Neurological Disorders: Seizure Disorder 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 System Hx 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 Disorders: Yes (AUB) Sexually Transmitted Disease: No Genitourinary History of Genitourinary Disor: No Gastrointestinal History of Gastrointestinal Di: Yes Gastrointestinal Disorders: Gastroesophageal Reflux, Ulcer Musculoskeletal History of Musculoskeletal Dis: Yes Musculoskeletal Disorders: Chronic Back Pain Endocrine History of Endocrine Disorders: Yes Endocrine Disorders: Hypothyroidsim Cancer History of Cancer: No Psychosocial History of Psychiatric Problem: No Suicide Risk Score: 0 Integumentary History of Skin or Integumenta: No Blood Transfusions History of Blood Disorders: Yes (anemia) Reviewed Nursing Assessment Reviewed/Agree w Nursing PMH: Yes Family Medical History Significant Family History: Cancer Family Medial History: Arthritis 19 MOTHER Asthma 19 MOTHER Diabetes mellitus 19 FATHER FH: breast cancer 19 MOTHER No Family History of: AIDS Alcoholism Cancer of mouth Cardiovascular disease Colon cancer Completed stroke Dementia Drug abuse Hypertension Kidney disease Myocardial infarction Parkinson's disease Prostate cancer Psychosocial problem Respiratory disorder Seizure disorder Severe allergy Thyroid disease Physical Exam Vital Signs Vital Sign - Last 12Hours 11/25/17 14:49 Temp 98.3 Pulse 74 Resp 18 B/P (MAP) 136/99 (111) Pulse Ox 97 O2 Delivery Room Air Capillary Refill : Less Than 3 Seconds General Appearance: WD/WN, no apparent distress HEENT: PERRL/EOMI, normal ENT inspection, TMs normal, pharynx normal Neck: non-tender, supple, normal inspection Respiratory: no respiratory distress, no accessory muscle use, decreased breath sounds (decreased breath sounds in all lung oliver), No stridor, wheezing (wheezing noted on forced expiration bilaterally) Cardiovascular: normal peripheral pulses, regular rate, rhythm, no edema, no murmur Gastrointestinal: non tender, soft, No distended Extremities: no pedal edema, no calf tenderness, normal capillary refill Neurologic/Psychiatric: alert, normal mood/affect, oriented x 3 Skin: normal color, warm/dry Progress/Results/Core Measures Suspected Sepsis Recent Fever Within 48 Hours: Yes Infection Criteria Present: None New/Unexplained Altered Menta: No Sepsis Screen: No Definite Risk Sepsis Diagnosis: SIRS Temperature:98.3 Pulse: 74 Respiratory Rate: 18 Blood Pressure 136 /99 Mean: 111 Results/Orders Lab Results Laboratory Tests Test 11/25/17 17:08 Range/Units Group A Streptococcus Screen NEGATIVE NEGATIVE Micro Results Microbiology 11/25/17 Influenza Types A,B Antigen (OLYA) - Final, Complete My Orders Orders - ANGELO OROZCO Influenza A And B Antigens (11/25/17 15:07) Chest Pa/Lat (2 View) (11/25/17 15:50) Albuterol/Ipra Inhalation Soln (Duoneb I (11/25/17 16:00) Svn Sm Volume Nebulizer Rt-Rfs (11/25/17 15:50) Benzonatate Capsule (Tessalon Perles) (11/25/17 16:00) Rapid Strep A Screen (11/25/17 17:10) Rx-Albuterol Inhaler (Rx-Proair) (11/25/17 17:47) Prednisone Tablet (Deltasone Tablet) (11/25/17 18:00) Levofloxacin Tablet (Levaquin Tablet) (11/25/17 18:00) Levofloxacin Tablet (Levaquin Tablet) (11/25/17 17:59) Medications Given in ED Current Medications Medications Dose Ordered Sig/Larry Route Start Time Stop Time Status Last Admin Dose Admin Albuterol/ Ipratropium 3 ml ONCE ONCE INH 11/25/17 16:00 11/25/17 16:01 DC 11/25/17 16:59 3 ML Benzonatate 200 mg ONCE ONCE PO 11/25/17 16:00 11/25/17 16:01 DC 11/25/17 16:51 200 MG Levofloxacin 500 mg ONCE ONCE PO 11/25/17 18:00 11/25/17 18:01 DC 11/25/17 18:03 500 MG Prednisone 40 mg ONCE ONCE PO 11/25/17 18:00 11/25/17 18:01 DC 11/25/17 18:03 40 MG Vital Signs/I&O Vital Sign - Last 12Hours 11/25/17 11/25/17 11/25/17 11/25/17 14:49 14:49 17:00 18:05 Temp 98.3 98.0 Pulse 74 85 Resp 18 20 B/P (MAP) 136/99 (111) Pulse Ox 97 95 99 O2 Delivery Room Air Room Air Capillary Refill : Less Than 3 Seconds Blood Pressure Mean: 111 Diagnostic Imaging Diagonstic Imaging: Xray Plain Films/CT/US/NM/MRI: chest Comments CHEST PA/LAT (2 VIEW) PATIENT HISTORY: Fever, chest tightness, cough. TECHNIQUE : Two views of the chest. COMPARISON: 03/17/2015. FINDINGS: The lung volumes are normal. No focal consolidation is seen. No large pleural effusion or pneumothorax is seen. The cardiomediastinal silhouette is normal in size and contour. No acute osseous abnormality is seen. IMPRESSION: No acute pulmonary abnormality seen. Dictated by: Dictated on workstation # [id number] Reviewed: Reviewed by Me (radiology report reviewed by me) Departure Communication (Admissions) Progress Notes Laboratory and diagnostic findings studies discussed with the patient. Patient shows improved aeration and breath sounds bilaterally after being given the DuoNeb nebulizer treatment. Plan for discharge to home. Patient follow-up with Dr. Chiang as an outpatient. Impression Impression: Primary Impression: Acute bronchitis Qualified Codes: J20.9 - Acute bronchitis, unspecified Disposition: 01 HOME, SELF-CARE Condition: Improved Departure-Patient Inst. Decision time for Depature: 17:14 Referrals: MORIAH CHIANG MD (PCP/Family) Primary Care Physician Patient Instructions: Acute Bronchitis, Adult (DC) Add. Discharge Instructions: All discharge instructions reviewed with patient and/or family. Voiced understanding. Medications as instructed. Tylenol just strength over-the- counter as directed for pain. Ibuprofen 800 mg by mouth every 8 hours as needed for pain or fever. Push fluids. Cool humidifier as needed. Over-the- counter Mucinex as directed by the mathematics improvement teacher for symptoms. Follow-up with your family practitioner for recheck if no improvement in symptoms. Return in the emergency department for worsened symptoms or any other concerns. Scripts Cephalexin (Cephalexin) 500 Mg Capsule 500 MG PO TID, #21 CAP 0 Refills Prov: ANGELO OROZCO 11/25/17 Prednisone (Prednisone) 20 Mg Tab 40 MG PO DAILY, #8 TAB 0 Refills Prov: ANGELO OROZCO 11/25/17 ANGELO OROZCO Nov 25, 2017 15:39
[2017-11-25] MEDS ORDERED: BENZONATATE 100 MG (TESSALON) CAPSULE PO ONE (16:00)
[2017-11-25] MEDS ORDERED: RT-ALBUTEROL/IPRATROPIUM 3 ML (DUONEB) VIAL INH ONE (16:00)
--- NOTE | 2017-11-25 16:25 | Diagnostic Imaging Report ---
PATIENT HISTORY: Fever, chest tightness, cough. TECHNIQUE: Two views of the chest. COMPARISON: 03/17/2015. FINDINGS: The lung volumes are normal. No focal consolidation is seen. No large pleural effusion or pneumothorax is seen. The cardiomediastinal silhouette is normal in size and contour. No acute osseous abnormality is seen. IMPRESSION: No acute pulmonary abnormality seen. Dictated by: Dictated on workstation # [id number]
[2017-11-25] MEDS ORDERED: RX-ALBUTEROL INHALER (PROAIR) 8 GM IH STA (17:47)
[2017-11-25] MEDS ORDERED: LEVOFLOXACIN 500 MG TAB (LEVAQUIN) ONE (17:59)
[2017-11-25] MEDS ORDERED: LEVOFLOXACIN 500 MG TAB (LEVAQUIN) PO ONE (18:00)
[2017-11-25] MEDS ORDERED: predniSONE 20 MG TAB PO ONE (18:00)
[2017-11-25] MEDS ORDERED: PRD20T PO (18:02)
[2017-11-25] MEDS ORDERED: CEPH500C PO (18:02)
[2017-11-25 18:05] VITALS: BP 132/87
== END 2017-11-25 18:05 | disposition home or self-care (01) ==
LOC: EDUNIT# 14:38 → ER 14:39
DX: J20.9 Acute bronchitis, unspecified (principal); G47.30 Sleep apnea, unspecified; I10 Essential (primary) hypertension; K21.9 Gastro-esophageal reflux disease without esophagitis; E03.9 Hypothyroidism, unspecified; G40.909 Epilepsy, unspecified, not intractable, without status epilepticus; Z87.59 Personal history of other complications of pregnancy, childbirth and the puerperium; Z87.19 Personal history of other diseases of the digestive system; Z80.3 Family history of malignant neoplasm of breast; Z90.710 Acquired absence of both cervix and uterus
CPT/HCPCS: 71046; 87430; 87804; 94640; 99283

== ENCOUNTER 2017-12-04 10:02 | Outpatient (RCR) | payer BC, OTHER ==
[~2017-12-04 10:02] MED LIST changes: +CEPH500C PO; +HYDR-34 PO; -HYDR-3816 PO; +PRD20T PO
[2017-12-04 10:44] LABS: BASOPHILS % (AUTO) 0 % (0-10); EOSINOPHILS # (AUTO) 0.2 10^3/uL (0.0-0.3); EOSINOPHILS % (AUTO) 2 % (0-10); HEMATOCRIT 42 % (35-52); HEMOGLOBIN 15.1 G/DL (11.5-16.0); LYMPHOCYTES # (AUTO) 1.9 X 10^3 (1.0-4.0); LYMPHOCYTES % (AUTO) 20 % (12-44); MEAN CORPUSCULAR HEMOGLOBIN 31 PG (25-34); MEAN CORPUSCULAR HGB CONC 36 G/DL (32-36); MEAN CORPUSCULAR VOLUME 86 FL (80-99); MEAN PLATELET VOLUME 9.6 FL (7.4-10.4); MONOCYTES # (AUTO) 0.5 X 10^3 (0.0-1.0); MONOCYTES % (AUTO) 5 % (0-12); NEUTROPHILS % (AUTO) 72 % (42-75); PLATELET COUNT 382 10^3/uL (130-400); RED BLOOD COUNT 4.91 10^6/uL (4.35-5.85); RED CELL DISTRIBUTION WIDTH 13.3 % (10.0-14.5); WHITE BLOOD COUNT 9.7 10^3/uL (4.3-11.0)
[2017-12-04 11:15] LABS: ALBUMIN 3.7 GM/DL (3.2-4.5); BILIRUBIN,TOTAL 0.4 MG/DL (0.1-1.0); CALCIUM 9.5 MG/DL (8.5-10.1); CREATININE SERUM 1.08 MG/DL (0.60-1.30); POTASSIUM 4.1 MMOL/L (3.6-5.0); TOTAL PROTEIN 7.9 GM/DL (6.4-8.2)
== END 2018-03-04 | disposition home or self-care (01) ==
LOC: ONC 10:02
PROVIDERS: ATTEND Internal Medicine Hematology & Oncology
DX: D50.9 Iron deficiency anemia, unspecified (principal); E03.9 Hypothyroidism, unspecified; I49.3 Ventricular premature depolarization; K21.9 Gastro-esophageal reflux disease without esophagitis; G47.33 Obstructive sleep apnea (adult) (pediatric); E66.01 Morbid (severe) obesity due to excess calories; Z68.39 Body mass index [BMI] 39.0-39.9, adult; Z79.899 Other long term (current) drug therapy
CPT/HCPCS: 36415; 80053; 82728; 83540; 85025; 99213

== ENCOUNTER → 2018-08-12 | Outpatient (CLI) | payer BC, OTHER ==
[2018-08-12 15:33] LABS: BASOPHILS # (AUTO) 0.1 10^3/uL (0.0-0.1); BASOPHILS % (AUTO) 1 % (0-10); EOSINOPHILS # (AUTO) 0.1 10^3/uL (0.0-0.3); EOSINOPHILS % (AUTO) 2 % (0-10); HEMATOCRIT 39 % (35-52); HEMOGLOBIN 13.8 G/DL (11.5-16.0); LYMPHOCYTES # (AUTO) 1.4 X 10^3 (1.0-4.0); LYMPHOCYTES % (AUTO) 17 % (12-44); MEAN CORPUSCULAR HEMOGLOBIN 30 PG (25-34); MEAN CORPUSCULAR HGB CONC 36 G/DL (32-36); MEAN CORPUSCULAR VOLUME 85 FL (80-99); MEAN PLATELET VOLUME 9.3 FL (7.4-10.4); MONOCYTES # (AUTO) 0.5 X 10^3 (0.0-1.0); MONOCYTES % (AUTO) 6 % (0-12); NEUTROPHILS # (AUTO) 6.1 X 10^3 (1.8-7.8); NEUTROPHILS % (AUTO) 74 % (42-75); PLATELET COUNT 268 10^3/uL (130-400); RED BLOOD COUNT 4.58 10^6/uL (4.35-5.85); RED CELL DISTRIBUTION WIDTH 14.8 % (10.0-14.5); WHITE BLOOD COUNT 8.2 10^3/uL (4.3-11.0)
--- NOTE | 2018-08-12 17:28 | Diagnostic Imaging Report ---
INDICATION: Routine screening. COMPARISON is made with prior mammograms from 12/06/2016 and 10/04/2015. 2-D and 3-D bilateral screening mammography was performed with CAD. FINDINGS: Both breasts are heterogeneously dense, limiting the sensitivity of mammography. Circumscribed masses in both breasts, the largest on the left, appear to be stable and most consistent with benign etiologies. No new mass or malignant-appearing microcalcifications are seen. The axillae are unremarkable. IMPRESSION: BI-RADS category 2. No mammographic features suspicious for malignancy are identified. Dictated by: Dictated on workstation # [id number]
== END ==
LOC: RAD 15:06
PROVIDERS: ATTEND Nurse Practitioner Family
DX: Z12.31 Encounter for screening mammogram for malignant neoplasm of breast (principal); L50.9 Urticaria, unspecified
CPT/HCPCS: 36415; 77067; 85025

== ENCOUNTER 2018-10-31 12:54 | Emergency (ER) | payer SELFPAY, BC | END 2018-10-31 14:35 | disposition home or self-care (01) | LOC: ER 12:54 ==

== ENCOUNTER 2019-02-19 20:42 | Outpatient (CLI) | payer OTHER | END 2019-02-20 06:20 | disposition home or self-care (01) | LOC: SLEEP 20:42 | PROVIDERS: ATTEND Otolaryngology Otolaryngology/Facial Plastic Surgery | DX: G47.33 Obstructive sleep apnea (adult) (pediatric) (principal) | CPT/HCPCS: 95811 ==

== ENCOUNTER 2019-08-04 17:44 | Emergency (ER) | payer OTHER ==
[~2019-08-04] VITALS: Ht 162 cm; Wt 114.0 kg
[2019-08-04] MEDS ORDERED: methylPREDNISolone 125 MG (Solu-MEDROL) VIAL IM ONE (18:15)
[2019-08-04] MEDS ORDERED: HYDR-700 PO (18:15)
[2019-08-04] MEDS ORDERED: PRD20T PO (18:15)
[2019-08-04] MEDS ORDERED: FAMOTIDINE 20 MG (PEPCID) TABLET PO ONE (18:15)
--- NOTE | 2019-08-04 18:15 | ED General ---
General Chief Complaint: General Problems/Pain Stated Complaint: HANDS AND FEET ITCHY Nursing Triage Note: Pt to triage with C/O itching to hands and feet since yesterday. Pt states "feels like a bunch of mosquito bites". No redness or wheals present upon examination. Pt reports taking Benadryl approx 1630 with minimal relief. Nursing Sepsis Screen: No Definite Risk Source of Information: Patient History of Present Illness Date Seen by Provider: Aug 04, 2019 Time Seen by Provider: 18:03 Initial Comments PT ARRIVES VIA POV STATES SHE HAS HAD INTENSE ITCHING OF HER FEET AND HER HANDS SINCE WAKING SUNDAY MORNING --HAS NOT BEEN ABLE TO SLEEP DUE TO ITCHING ITCHING IS TO BOTH PALMAR/PLANTER AND DORSAL ASPECTS OF HANDS AND FEET NO RASH ANYWHERE NO SWELLING ANYWHERE NO ITCHING ANYWHERE ELSE NO DIFFICULTY BREATHING OR SWALLOWING NO HISTORY OF SIMILAR PT STARTED ON A NEW DIURETIC ABOUT 2 WEEKS AGO, FOR DEPENDENT ANKLE EDEMA PT ALSO GOT A FLU SHOT ON SUNDAY NO OTHER NEW MEDICATIONS, FOODS, PRODUCTS OR EXPOSURES TOOK BENADRYL AROUND 1630 WITHOUT RELIEF. WENT TO DR. VARGAS'S OFFICE TODAY, BUT COULD NOT SEE HER TODAY--HAS AN APPOINTMENT TOMORROW AT 1530 PCP: DR. VARGAS Allergies and Home Medications Allergies Coded Allergies: Penicillins (Verified Allergy, Unknown, 01/12/09) Sulfa (Sulfonamide Antibiotics) (Verified Allergy, Unknown, 01/12/09) Home Medications Cephalexin 500 Mg Capsule, 500 MG PO TID Prescribed by: HILLARY GUO on 07/20/17 0843 Cephalexin 500 Mg Capsule, 500 MG PO TID Prescribed by: ANGELO OROZCO on 11/25/17 1802 Docusate Sodium 100 Mg Capsule, 100 MG PO BID PRN for CONSTIPATION-1ST LINE Prescribed by: NESTOR STONER on 07/19/17 175 Hydrochlorothiazide 25 Mg Tablet, 25 MG PO DAILY, (Reported) Hydrocodone Bit/Acetaminophen 1 Each Tablet, 1-2 EA PO Q6H PRN for Pain-See Instructions Prescribed by: NESTOR STONER on 07/19/17 175 Hydrocodone Bit/Acetaminophen 1 Tab Tab, 1 EACH PO Q4-6HR PRN for PAIN-MODERATE Prescribed by: SHAYLA RESTREPO on 10/31/18 1331 Hydroxyzine HCl 25 Mg Tablet, 25-50 MG PO Q6H Prescribed by: TEENA GAONA on 08/04/191814 Ibuprofen 600 Mg Tablet, 600 MG PO Q6H PRN for PAIN-MODERATE Prescribed by: NESTOR STONER on 07/19/171756 Levothyroxine Sodium 150 Mcg Tablet, 150 MCG PO DAILY, (Reported) Metoprolol Succinate 25 Mg Tab.er.24h, 25 MG PO DAILY, (Reported) Omeprazole 40 Mg Capsule.dr, 40 MG PO DAILY, (Reported) Prednisone 20 Mg Tab, 40 MG PO DAILY Prescribed by: ANGELO OROZCO on 11/25/171801 Prednisone 20 Mg Tab, 40 MG PO DAILY Prescribed by: TEENA GAONA on 08/04/191814 Simethicone 80 Mg Tab.chew, 40 MG PO TID PRN for INDIGESTION 2ND LINE Prescribed by: NESTOR STONER on 07/19/171756 Patient Home Medication List Home Medication List Reviewed: Yes Review of Systems Review of Systems Constitutional: no symptoms reported EENTM: no symptoms reported Respiratory: no symptoms reported Cardiovascular: no symptoms reported Gastrointestinal: no symptoms reported Genitourinary: no symptoms reported Musculoskeletal: no symptoms reported Skin: see HPI, pruritus; No rash Psychiatric/Neurological: No Symptoms Reported Hematologic/Lymphatic: No Symptoms Reported Immunological/Allergic: no symptoms reported Past Cjtxtyf-Uatrwd-Hincnt Hx Past Med/Social Hx: Reviewed and Corrections made Patient Social History 2nd Hand Smoke Exposure: No Recent Foreign Travel: No Contact w/Someone Who Travel: No Recent Infectious Disease Expo: No Recent Hopitalizations: No Immunizations Up To Date Date of Influenza Vaccine: Jul 22, 2016 Seasonal Allergies Seasonal Allergies: Yes Past Medical History Surgeries: Yes (FOOT SURGERY; X3; BREAST MASS; HYST/BSO) Breast, Section, Gallbladder, Hysterectomy, Orthopedic Respiratory: Yes Sleep Apnea Currently Using CPAP: No Cardiac: Yes (hx of PVC's) Chronic Edema/Swelling, Hypertension Neurological: Yes (febrile seizure when little) Seizure Disorder 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 Disorders: 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 (AUB) 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 Sexually Transmitted Disease: No Genitourinary: No Gastrointestinal: Yes Gastroesophageal Reflux, Ulcer Musculoskeletal: Yes Chronic Back Pain Endocrine: Yes Hypothyroidsim Cancer: No Psychosocial: No Integumentary: No Blood Disorders: Yes (ANEMIA) Family Medical History Arthritis 19 MOTHER Asthma 19 MOTHER Diabetes mellitus 19 FATHER FH: breast cancer 19 MOTHER No Family History of: AIDS Alcoholism Cancer of mouth Cardiovascular disease Colon cancer Completed stroke Dementia Drug abuse Hypertension Kidney disease Myocardial infarction Parkinson's disease Prostate cancer Psychosocial problem Respiratory disorder Seizure disorder Severe allergy Thyroid disease Cancer Physical Exam Vital Signs Vital Signs - First Documented 08/04/19 17:53 Temp 36.8 Pulse 73 Resp 18 B/P (MAP) 141/86 (104) Pulse Ox 98 O2 Delivery Room Air Capillary Refill : Less Than 3 Seconds Height, Weight, BMI Height: 5'3.00" Weight: 230lbs. 0.0oz. [id number]; 43.00 BMI Method:Stated General Appearance: No Apparent Distress, WD/WN HEENT: Normal ENT Inspection Neck: Normal Inspection Respiratory: Normal Breath Sounds, No Accessory Muscle Use, No Respiratory Distress Cardiovascular: Regular Rate, Rhythm, No Edema, No Murmur, Normal Peripheral Pulses Extremity: Normal Capillary Refill, Normal Inspection, No Pedal Edema Neurologic/Psychiatric: Alert, Oriented x3, No Motor/Sensory Deficits, Normal Mood/Affect, patient safety tech II-XII Norm as Tested Skin: Normal Color, Warm/Dry; No Rash Progress/Results/Core Measures Suspected Sepsis Recent Fever Within 48 Hours: No Infection Criteria Present: None New/Unexplained Altered Menta: No Sepsis Screen: No Definite Risk SIRS Temperature: Pulse: 73 Respiratory Rate: 18 Blood Pressure 141 /86 Mean: 104 Results/Orders My Orders Orders - TEENA GAONA DO Methylprednisolone Sod Succ (Solu-Medrol (08/04/19 18:15) Famotidine Tablet (Pepcid Tablet) (08/04/19 18:15) Vital Signs/I&O 08/04/19 17:53 Temp 36.8 Pulse 73 Resp 18 B/P (MAP) 141/86 (104) Pulse Ox 98 O2 Delivery Room Air Capillary Refill : Less Than 3 Seconds Blood Pressure Mean: 104 Departure Impression Primary Impression: ITCHING OF HANDS AND FEET Additional Impression: POSSIBLE ALLERGIC REACTION Disposition: 01 HOME, SELF-CARE Condition: Stable Departure-Patient Inst. Referrals: DESIREE VARGAS DO (PCP/Family) Primary Care Physician Patient Instructions: Adverse Drug Reactions, Adult (DC) Add. Discharge Instructions: LOTS OF WATER HOLD YOUR FLUID PILL TOMORROW MORNING TAKE PEPCID 40 MG TWICE A DAY NEEDED KEEP YOUR APPOINTMENT TOMORROW WITH DR. VARGAS All discharge instructions reviewed with patient and/or family. Voiced understanding. Scripts Hydroxyzine HCl (Hydroxyzine HCl) 25 Mg Tablet 25-50 MG PO Q6H for Itching, #20 TAB Prov: TEENA GAONA DO 08/04/19 Prednisone (Prednisone) 20 Mg Tab 40 MG PO DAILY, #6 TAB Prov: TEENA GAONA DO 08/04/19 TEENA GAONA DO Aug 04, 2019 18:15
[2019-08-04 18:26] VITALS: BP 133/81
== END 2019-08-04 18:26 | disposition home or self-care (01) ==
LOC: EDUNIT# 17:44 → ER 17:45
DX: L29.9 Pruritus, unspecified (principal); I10 Essential (primary) hypertension; G40.909 Epilepsy, unspecified, not intractable, without status epilepticus; K21.9 Gastro-esophageal reflux disease without esophagitis; E03.9 Hypothyroidism, unspecified; D64.9 Anemia, unspecified; Z88.0 Allergy status to penicillin; Z88.2 Allergy status to sulfonamides; Z79.52 Long term (current) use of systemic steroids; Z90.710 Acquired absence of both cervix and uterus; Z90.722 Acquired absence of ovaries, bilateral; Z80.3 Family history of malignant neoplasm of breast
CPT/HCPCS: 99284

== ENCOUNTER → 2019-08-13 | Outpatient (CLI) | payer OTHER ==
[~2019-08-13] MED LIST changes: +HYDR-700 PO
--- NOTE | 2019-08-13 08:59 | Diagnostic Imaging Report ---
INDICATION: Routine screening. COMPARISON: 08/12/2018 and 12/06/2016. TECHNIQUE: 2D and 3D bilateral screening mammography was performed with CAD. FINDINGS: Scattered fibroglandular densities are identified bilaterally. Bilateral circumscribed masses are identified, similar to the prior exam. No new mass or malignant appearing microcalcifications are seen. The axillae are unremarkable. IMPRESSION: No mammographic features suspicious for malignancy are identified. ACR BI-RADS Category 2: Benign findings. Result letter will be mailed to the patient. Note: At least 10% of breast cancer is not imaged by mammography. Dictated by: Dictated on workstation # [id number]
== END ==
LOC: RAD 06:53
PROVIDERS: ATTEND Family Medicine
DX: Z12.31 Encounter for screening mammogram for malignant neoplasm of breast (principal)
CPT/HCPCS: 77067

== ENCOUNTER 2019-09-23 16:35 | Observation (INO) | payer OTHER ==
[~2019-09-23] VITALS: Ht 162 cm; Wt 114.0 kg
[~2019-09-23 16:35] MED LIST changes: -LEVO137T2 PO; -METO100T6 PO; -SPIR50TA4 PO
--- NOTE | 2019-09-23 16:50 | NUR ---
SMALL RUNS OF V-TACH NOTED ON MONITOR DR CABEZAS IN ROOM
--- NOTE | 2019-09-23 16:58 | ED Cardiac General ---
History of Present Illness General Chief Complaint: Cardiac/General Problems Stated Complaint: ABNORMAL EKG Nursing Triage Note: PT AMBULATED TO ROOM [address] LARA OFFICE AND HAD AN ABNORMAL EKG. PT STATES HAD C/P ON SUNDAY, STATES HAS BILATERAL LOWER EXT PAIN AND KNOTS ON LEGS, DENIES C/P AT THIS X Source: patient Exam Limitations: no limitations History of Present Illness Date Seen by Provider: Sep 23, 2019 Time Seen by Provider: 16:37 Initial Comments This 53-year-old woman presents to the emergency room with complaints of bilateral lower extremity edema and pain that has been worsening over the past couple of months. This has been managed by Dr. Goodson. Today she was at Dr. Goodson's office and was referred to the hospital to get an EKG done. EKG techs were alarmed to find brief runs of ventricular tachycardia. They notified Dr. Davis who asked the patient to be evaluated in the emergency room. Patient reports having a significant episode of pain in her left arm on Sunday. After the arm pain resolved she had a tearing sensation in her left breast. These symptoms resolved without intervention. She denies any chest pain at this time. She is asymptomatic at the moment except for painful edema in her legs. Her leg symptoms have been present for about 2 months and she is taking tapan nolactone for this. She reports a history of some type of arrhythmia in the past for which she saw Dr. Matias. Allergies and Home Medications Allergies Coded Allergies: Penicillins (Verified Allergy, Unknown, 01/12/09) Sulfa (Sulfonamide Antibiotics) (Verified Allergy, Unknown, 01/12/09) Home Medications Hydrochlorothiazide 25 Mg Tablet, 25 MG PO DAILY, (Reported) Levothyroxine Sodium 150 Mcg Tablet, 150 MCG PO DAILY, (Reported) Patient Home Medication List Home Medication List Reviewed: Yes Review of Systems Review of Systems Constitutional: no symptoms reported EENTM: No Symptoms Reported Respiratory: No Symptoms Reported Cardiovascular: See HPI Gastrointestinal: No Symptoms Reported Genitourinary: No Symptoms Reported Musculoskeletal: see HPI Skin: no symptoms reported Psychiatric/Neurological: No Symptoms Reported Endocrine: No Symptoms Reported Hematologic/Lymphatic: No Symptoms Reported Past Kyvgtsy-Zyarfy-Ktwsev Hx Past Med/Social Hx: Reviewed Nursing Past Med/Soc Hx Patient Social History Alcohol Use: Denies Use Recreational Drug Use: No Smoking Status: Never a Smoker 2nd Hand Smoke Exposure: No Recent Foreign Travel: No Contact w/Someone Who Travel: No Recent Infectious Disease Expo: No Recent Hopitalizations: No Physical Abuse: No Sexual Abuse: No Immunizations Up To Date Date of Influenza Vaccine: Jul 22, 2016 Seasonal Allergies Seasonal Allergies: Yes Past Medical History Surgeries: Yes (FOOT SURGERY; X3; BREAST MASS; HYST/BSO) Breast, Section, Gallbladder, Hysterectomy, Orthopedic Respiratory: Yes Sleep Apnea Currently Using CPAP: No Cardiac: Yes (hx of PVC's) Chronic Edema/Swelling, Hypertension Neurological: Yes (febrile seizure when little) Seizure Disorder 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 Sexually Transmitted Disease: No Genitourinary: No Gastrointestinal: Yes Gastroesophageal Reflux, Ulcer Musculoskeletal: Yes Chronic Back Pain Endocrine: Yes Hypothyroidsim HEENT: No Cancer: No Psychosocial: No Integumentary: No Blood Disorders: Yes (ANEMIA) Family Medical History Reviewed Nursing Family Hx Arthritis 19 MOTHER Asthma 19 MOTHER Diabetes mellitus 19 FATHER FH: breast cancer 19 MOTHER No Family History of: AIDS Alcoholism Cancer of mouth Cardiovascular disease Colon cancer Completed stroke Dementia Drug abuse Hypertension Kidney disease Myocardial infarction Parkinson's disease Prostate cancer Psychosocial problem Respiratory disorder Seizure disorder Severe allergy Thyroid disease Cancer Physical Exam Vital Signs Vital Signs - First Documented 09/23/19 16:40 Temp 36.5 Pulse 73 Resp 18 B/P (MAP) 152/96 (114) Pulse Ox 98 Capillary Refill : Less Than 3 Seconds Height, Weight, BMI Height: 5'3.00" Weight: 230lbs. 0.0oz. 104.954376yh; 43.00 BMI Method:Stated General Appearance: No Apparent Distress, WD/WN HEENT: PERRL/EOMI, Normal ENT Inspection Neck: Normal Inspection Respiratory: Lungs Clear, Normal Breath Sounds, No Accessory Muscle Use, No Respiratory Distress Cardiovascular: Regular Rate, Rhythm, No Murmur, Other (mild tender pitting lower extremity edema equal bilaterally) Gastrointestinal: Normal Bowel Sounds, Non Tender, Soft Extremity: Normal Capillary Refill, Pedal Edema (and tender pitting lower extremity edema equal bilaterally) Neurologic/Psychiatric: Alert, Oriented x3, No Motor/Sensory Deficits, Normal Mood/Affect, junior architect II-XII Norm as Tested Skin: Normal Color, Warm/Dry Progress/Results/Core Measures Results/Orders Lab Results Laboratory Tests Test 09/23/19 16:40 Range/Units White Blood Count 8.1 4.3-11.0 10^3/uL Red Blood Count 5.12 4.35-5.85 10^6/uL Hemoglobin 15.1 11.5-16.0 G/DL Hematocrit 44 35-52 % Mean Corpuscular Volume 86 80-99 FL Mean Corpuscular Hemoglobin 30 25-34 PG Mean Corpuscular Hemoglobin Concent 34 32-36 G/DL Red Cell Distribution Width 13.9 10.0-14.5 % Platelet Count 257 130-400 10^3/uL Mean Platelet Volume 10.3 7.4-10.4 FL Neutrophils (%) (Auto) 70 42-75 % Lymphocytes (%) (Auto) 19 12-44 % Monocytes (%) (Auto) 9 0-12 % Eosinophils (%) (Auto) 2 0-10 % Basophils (%) (Auto) 1 0-10 % Neutrophils # (Auto) 5.6 1.8-7.8 X 10^3 Lymphocytes # (Auto) 1.5 1.0-4.0 X 10^3 Monocytes # (Auto) 0.7 0.0-1.0 X 10^3 Eosinophils # (Auto) 0.2 0.0-0.3 10^3/uL Basophils # (Auto) 0.0 0.0-0.1 10^3/uL Prothrombin Time 13.4 12.2-14.7 SEC INR Comment 1.0 0.8-1.4 Activated Partial Thromboplast Time 25 24-35 SEC Magnesium Level 2.0 1.6-2.4 MG/DL Total Creatine Kinase 143 29-168 U/L Myoglobin 72.9 10.0-92.0 NG/ML Troponin I < 0.028 <0.028 NG/ML B-Type Natriuretic Peptide 13.7 <100.0 PG/ML Thyroid Stimulating Hormone (TSH) 1.07 0.35-4.94 UIU/ML Free Thyroxine 1.28 0.70-1.48 NG/DL My Orders Orders - BRYON RANDHAWA MD Cbc With Automated Diff (09/23/19 16:53) Magnesium (09/23/19 16:53) Chest 1 View, Ap/Pa Only (09/23/19 16:53) Myoglobin Serum (09/23/19 16:53) Protime With Inr (09/23/19 16:53) Partial Thromboplastin Time (09/23/19 16:53) O2 (09/23/19 16:53) Monitor-Rhythm Ecg Trace Only (09/23/19 16:53) Lipid Panel (09/24/19 06:00) Ed Iv/Invasive Line Start (09/23/19 16:53) Creatine Kinase (09/23/19 16:53) Troponin I (09/23/19 16:53) BNP (09/23/19 17:03) Thyroid Stimulating Hormone (09/23/19 17:03) Free T4 (Free Thyroxine) (09/23/19 17:03) Lidocaine Drip (Xylocaine Drip) (09/23/19 17:15) Metoprolol Succinate (Xl) Tab (Toprol Xl (09/23/19 18:15) Vital Signs/I&O 09/23/19 09/23/19 16:40 17:33 Temp 36.5 Pulse 73 61 Resp 18 18 B/P (MAP) 152/96 (114) 161/95 Pulse Ox 98 98 Blood Pressure Mean: 114 POS Progress Progress Note : Progress Note Patient was observed on the monitor and found to have numerous short runs of what appeared to be ventricular tachycardia. Workup which included electrolytes, d-dimer, BNP, thyroid studies, troponin, etc. was unremarkable. Dr. Davis was consulted. He recommended a lidocaine bolus and drip. This was initiated. Dr. Davis later presented to the emergency room to assess the patient. He then recommended starting Toprol-XL 100 mg daily, starting in the ER. Lidocaine drip was to be stopped about 30 minutes after taking oral dose. Patient is to be observed in the ICU tonight. Defibrillator patches remained on the patient throughout her ER stay. Initial ECG Impression Date: Sep 23, 2019 Initial ECG Impression Time: 16:24 Initial ECG Rate: 100 Comment Sinus tachycardia with a brief run of ventricular tachycardia ([address] elevation or depression. No lifting abnormal intervals or axis deviation. Diagnostic Imaging Diagonstic Imaging: Xray Plain Films/CT/US/NM/MRI: chest Comments NAME: GUSTAVOAIMEE A MED REC#: [id number] PT STATUS: REG ER : 1965 PHYSICIAN: BRYON RANDHAWA MD ADMIT DATE: 09/23/19/ER Signed Date of Exam:09/23/19 CHEST 1 VIEW, AP/PA ONLY PATIENT HISTORY: Abnormal EKG. Left arm numbness. TECHNIQUE: Single frontal view of the chest. COMPARISON: 11/25/2017. FINDINGS: The lung volumes are normal. No focal consolidation is seen. No large pleural effusion or pneumothorax is seen. The cardiomediastinal silhouette is prominent. No acute osseous abnormality is seen. IMPRESSION: 1. Cardiomegaly. No overt pulmonary edema. Dictated by: Dictated on workstation # [id number] Dict: 09/23/191707 Trans: 09/23/191711 [facility] [id number] Interpreted by: AIRAM MERRITT DO Electronically signed by: AIRAM MERRITT DO 09/23/192 Departure Communication (Admissions) Time/Spoke to Admitting Phy: 18:10 Dr. Goodson Time/Spoke to Consulting Phy: 17:50 Dr. Davis Impression Primary Impression: Ventricular tachycardia Additional Impression: Chest pain Qualified Codes: R07.9 - Chest pain, unspecified Disposition: 09 ADMITTED INPATIENT Condition: Improved Admissions Decision to Admit Reason: Admit from ER (General) Decision to Admit/Date: Sep 23, 2019 Time/Decision to Admit Time: 17:50 Departure-Patient Inst. Referrals: DESIREE GOODSON DO (PCP/Family) Primary Care Physician BROYN RANDHAWA MD Sep 23, 2019 16:58 POS
[2019-09-23 17:00] LABS: BASOPHILS % (AUTO) 1 % (0-10); EOSINOPHILS # (AUTO) 0.2 10^3/uL (0.0-0.3); EOSINOPHILS % (AUTO) 2 % (0-10); HEMATOCRIT 44 % (35-52); HEMOGLOBIN 15.1 G/DL (11.5-16.0); LYMPHOCYTES # (AUTO) 1.5 X 10^3 (1.0-4.0); LYMPHOCYTES % (AUTO) 19 % (12-44); MEAN CORPUSCULAR HEMOGLOBIN 30 PG (25-34); MEAN CORPUSCULAR HGB CONC 34 G/DL (32-36); MEAN CORPUSCULAR VOLUME 86 FL (80-99); MEAN PLATELET VOLUME 10.3 FL (7.4-10.4); MONOCYTES # (AUTO) 0.7 X 10^3 (0.0-1.0); MONOCYTES % (AUTO) 9 % (0-12); NEUTROPHILS # (AUTO) 5.6 X 10^3 (1.8-7.8); NEUTROPHILS % (AUTO) 70 % (42-75); PLATELET COUNT 257 10^3/uL (130-400); RED CELL DISTRIBUTION WIDTH 13.9 % (10.0-14.5); WHITE BLOOD COUNT 8.1 10^3/uL (4.3-11.0)
[2019-09-23 17:05] LABS: PROTHROMBIN TIME PATIENT 13.4 SEC (12.2-14.7)
--- NOTE | 2019-09-23 17:12 | Diagnostic Imaging Report ---
PATIENT HISTORY: Abnormal EKG. Left arm numbness. TECHNIQUE: Single frontal view of the chest. COMPARISON: 11/25/2017. FINDINGS: The lung volumes are normal. No focal consolidation is seen. No large pleural effusion or pneumothorax is seen. The cardiomediastinal silhouette is prominent. No acute osseous abnormality is seen. IMPRESSION: 1. Cardiomegaly. No overt pulmonary edema. Dictated by: Dictated on workstation # [id number]
[2019-09-23] MEDS ORDERED: LIDOCAINE DRIP 500 ML IV SCH (17:15)
[2019-09-23 17:40] LABS: FREE T4 (FREE THYROXINE) 1.28 NG/DL (0.70-1.48)
--- NOTE | 2019-09-23 18:00 | NUR ---
DR MORENO HERE TO SEE PT
[2019-09-23] MEDS ORDERED: meTOproloL SUCCINATE 50 MG (TOPROL XL) TAB PO SCH (18:15)
--- NOTE | 2019-09-23 18:22 | Consultation-Cardiology ---
HPI-Cardiology Cardiology Consultation: Date of Consultation 09/23/19 Time Seen by a Provider: 17:45 Date of Admission Attending Physician Admitting Physician Radha Goodson DO Consulting Physician ALISA MORENO MD, MA, FACP, FACC, FSCAI, CCDS Primary moto mix operator: Dr Matias HPI: Chief Complaint: Reason for consultation: NSVT on ECG HPI 54 yo woman who went to Dr Goodson'lien for eval of leg swelling, was found to have arrhythmia on exam, was [facility] for [facility] that showed runs of NSVT, was sent to ER. Does not report cp. Did have about 30 min of L arm discomfort 2 days ago. No palp or syncope. Feels bloated recently. Feels legs are swollen. Denies symptoms consistent with orthopnea. Does have chronic exertional shortness of breath. States has gained considerable wgt lately. Notes genera lized malaise. Denies recent fever or chills Review of Systems-Cardiology Review of Systems Constitutional: As described under HPI Eyes: No vision change Ears/Nose/Throat: No ear discharge, No nasal drainage, No recent hearing loss Respiratory: As described under HPI Cardiovascular: As described under HPI Gastrointestinal: No constipation, No diarrhea, No nausea, No vomiting Genitourinary: No dysuria, No hematuria, No urine frequency changes Musculoskeletal: No back pain, No joint pain Skin: No rash, No ulcerations Psychiatric/Neurological: No seizure, No focal weakness, No syncope Hematologic: No bleeding abnormalities UIB-Daghae-Uqrsng Hx Patient Social History Alcohol Use: Denies Use Recreational Drug Use: No Smoking Status: Never a Smoker 2nd Hand Smoke Exposure: No Recent Foreign Travel: No Recent Infectious Disease Expo: No Hospitalization with Isolation: Denies Immunizations Up To Date Date of Influenza Vaccine: Jul 22, 2016 Past Medical History PMH As described under Assessment. Family Medical History Family History: Arthritis 19 MOTHER Asthma 19 MOTHER Diabetes mellitus 19 FATHER FH: breast cancer 19 MOTHER No Family History of: AIDS Alcoholism Cancer of mouth Cardiovascular disease Colon cancer Completed stroke Dementia Drug abuse Hypertension Kidney disease Myocardial infarction Parkinson's disease Prostate cancer Psychosocial problem Respiratory disorder Seizure disorder Severe allergy Thyroid disease Allergies and Home Medications Allergies Coded Allergies: Penicillins (Verified Allergy, Unknown, 01/12/09) Sulfa (Sulfonamide Antibiotics) (Verified Allergy, Unknown, 01/12/09) Home Medications Hydrochlorothiazide 25 Mg Tablet, 25 MG PO DAILY, (Reported) Levothyroxine Sodium 150 Mcg Tablet, 150 MCG PO DAILY, (Reported) Patient Home Medication List Home Medication List Reviewed: Yes Physical Exam-Cardiology Physical Exam Vital Signs/I&O 09/23/19 09/23/19 16:40 17:33 Temp 36.5 Pulse 73 61 Resp 18 18 B/P (MAP) 152/96 (114) 161/95 Pulse Ox 98 98 Capillary Refill : Less Than 3 Seconds Constitutional: AAO x 3, well-developed, well-nourished, other (obese) HEENT: PERRL, EOMI, hearing is well preserved; No xanthelasmas are seen Neck: carotid pulses are 2 + bilaterally, with good upstrokes Respiratory: No accessory muscle use; lungs clear to percussion, lungs clear to auscultation Cardiovascular: regular rate-rhythm, S1 and S2, systolic murmur (soft VU at card base) Gastrointestinal: No tender; soft; No guarding, No rebound; audible bowel sounds Extremities: other (bilateral, moderate, non-pitting edema); No clubbing, No cyanosis Neurologic/Psychiatric: oriented x 3, other (moves all limbs equally) Skin: No rash on exposed areas, No ulcerations on exposed areas Data Review Labs Laboratory Tests 09/23/19 16:40: White Blood Count 8.1, Red Blood Count 5.12, Hemoglobin 15.1, Hematocrit 44, Mean Corpuscular Volume 86, Mean Corpuscular Hemoglobin 30, Mean Corpuscular Hemoglobin Concent 34, Red Cell Distribution Width 13.9, Platelet Count 257, Mean Platelet Volume 10.3, Neutrophils (%) (Auto) 70, Lymphocytes (%) (Auto) 19, Monocytes (%) (Auto) 9, Eosinophils (%) (Auto) 2, Basophils (%) (Auto) 1, Neutrophils # (Auto) 5.6, Lymphocytes # (Auto) 1.5, Monocytes # (Auto) 0.7, Eosinophils # (Auto) 0.2, Basophils # (Auto) 0.0, Prothrombin Time 13.4, INR Comment 1.0, Activated Partial Thromboplast Time 25, Magnesium Level 2.0, Total Creatine Kinase 143, Myoglobin 72.9, Troponin I < 0.028, B-Type Natriuretic Peptide 13.7, Thyroid Stimulating Hormone (TSH) 1.07, Free Thyroxine 1.28 Laboratory Tests 09/23/19 16:40 A/P-Cardiology Assessment/Admission Diagnosis 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 Use lidocaine or amio, if bb not adequate * Echo to evaluate for structural heart disease * Card cath to eval for CAD * Further recs based on above studies ALISA MORENO MD FACP FAC CCDS Sep 23, 2019 18:22 POS
--- NOTE | 2019-09-23 18:40 | NUR ---
PT UP TO BSC
[2019-09-23 19:35] VITALS: BP 144/84
[2019-09-23 19:45] VITALS: BP 132/83
[2019-09-23 20:00] VITALS: BP 138/85
[2019-09-23] MEDS ORDERED: CATHETER FLUSH 10 ML SYR IV PRN (20:00)
[2019-09-23] MEDS: ENOXAPARIN 40 MG/0.4 ML (LOVENOX) SYR SC SCH (20:29)
[2019-09-23 21:00] VITALS: BP 126/76
[2019-09-23 22:00] VITALS: BP 110/79
[2019-09-23] MEDS: CATHETER FLUSH 10 ML SYR IV SCH (22:00)
[2019-09-23 23:00] VITALS: BP 112/88
[2019-09-23 23:11] LABS: CALCIUM 10.1 MG/DL (8.5-10.1); CREATININE SERUM 1.01 MG/DL (0.60-1.30); POTASSIUM 4.2 MMOL/L (3.6-5.0)
[2019-09-24] VITALS (18 sets, daily range): BP systolic 101–139; BP diastolic 66–93
[2019-09-24 03:34] LABS: BASOPHILS % (AUTO) 0 % (0-10); EOSINOPHILS # (AUTO) 0.2 10^3/uL (0.0-0.3); EOSINOPHILS % (AUTO) 3 % (0-10); HEMATOCRIT 41 % (35-52); HEMOGLOBIN 13.7 G/DL (11.5-16.0); LYMPHOCYTES # (AUTO) 1.6 X 10^3 (1.0-4.0); LYMPHOCYTES % (AUTO) 24 % (12-44); MEAN CORPUSCULAR HEMOGLOBIN 29 PG (25-34); MEAN CORPUSCULAR HGB CONC 34 G/DL (32-36); MEAN CORPUSCULAR VOLUME 87 FL (80-99); MEAN PLATELET VOLUME 9.9 FL (7.4-10.4); MONOCYTES # (AUTO) 0.6 X 10^3 (0.0-1.0); MONOCYTES % (AUTO) 9 % (0-12); NEUTROPHILS # (AUTO) 4.2 X 10^3 (1.8-7.8); NEUTROPHILS % (AUTO) 63 % (42-75); PLATELET COUNT 238 10^3/uL (130-400); WHITE BLOOD COUNT 6.7 10^3/uL (4.3-11.0)
[2019-09-24 03:59] LABS: BUN/CREATININE RATIO 18; CALCIUM 9.2 MG/DL (8.5-10.1); CARBON DIOXIDE 21 MMOL/L (21-32); CHLORIDE 108 MMOL/L (98-107); CHOLESTEROL 165 MG/DL (< 200); CREATININE SERUM 0.94 MG/DL (0.60-1.30); GFR ESTIMATED > 60; GLUCOSE 105 MG/DL (70-105); HDL CHOLESTEROL 40 MG/DL (40-60); PHOSPHORUS 4.5 MG/DL (2.3-4.7); SODIUM 140 MMOL/L (135-145); TRIGLYCERIDES 158 MG/DL (<150); VLDL CHOLESTEROL 32 MG/DL (5-40)
[2019-09-24] MEDS: CATHETER FLUSH 10 ML SYR IV SCH ×2 (05:53→15:00)
[2019-09-24] MEDS: ENOXAPARIN 40 MG/0.4 ML (LOVENOX) SYR SC SCH (07:58)
--- NOTE | 2019-09-24 08:52 | Diagnostic Imaging Report ---
EXAMINATION: Portable erect AP chest at 3:34 AM. INDICATION: Chest pain. FINDINGS: The heart size is within normal limits and stable when compared to 09/23/2019. The lungs remain clear. There is still no sign of failure, pneumonia, or pleural effusion. The mediastinum is not widened. The osseous structures are intact. IMPRESSION: Stable chest. There has been no adverse change since the prior exam. Dictated by: Dictated on workstation # [id number]
[2019-09-24] MEDS ORDERED: ASPIRIN 81 MG CHEW (CHILDREN'S ASA) PO NR (09:00)
[2019-09-24] MEDS ORDERED: LORazepam 0.5 MG (ATIVAN) TABLET PO PRN (09:00)
[2019-09-24] MEDS ORDERED: LORazepam 0.5 MG (ATIVAN) TABLET PO NR (09:00)
[2019-09-24] MEDS ORDERED: ASPIRIN 81 MG CHEW (CHILDREN'S ASA) PO SCH (09:00)
[2019-09-24] MEDS ORDERED: meTOprolol SUCCINATE 100 MG (TOPROL XL) TAB PO SCH (09:00)
[2019-09-24] MEDS ORDERED: NS IV 1000 ML 1,000 ML IV SCH ×2 (09:00→13:24)
--- NOTE | 2019-09-24 09:03 | Progress Note - Cardiology ---
Cardiology SOAP Progress Note Subjective: Lying in bed. No c/o CP, palpitations or dyspnea. Tearful this morning. Family x2 at the bedside. Objective: I&O/Vital Signs Weight (Pounds): 230 Weight (Ounces): 0.0 Weight (Calculated Kilograms): 104.383315 Constitutional: AAO x 3, well-developed, well-nourished, other (obese) Respiratory: No accessory muscle use; lungs clear to percussion, lungs clear to auscultation Cardiovascular: regular rate-rhythm, S1 and S2, systolic murmur (soft VU at card base) Gastrointestional: No tender; soft; No guarding, No rebound; audible bowel sounds Extremities: other (bilateral, moderate, non-pitting edema); No clubbing, No cyanosis Neurologic/Psychiatric: oriented x 3, other (moves all limbs equally) Skin: No rash on exposed areas, No ulcerations on exposed areas Results/Procedures: Labs Microbiology 09/23/19 MRSA Screen - Final, Complete MRSA not isolated Procedures NAME: AIMEE CHEN [facility] REC#: [id number] PT STATUS: ADM Helen : 1965 PHYSICIAN: DESIREE VARGAS DO ADMIT DATE: 09/23/19/ICU Signed Date of Exam:09/24/19 CHEST 1 VIEW, AP/PA ONLY EXAMINATION: Portable erect AP chest at 3:34 AM. INDICATION: Chest pain. FINDINGS: The heart size is within normal limits and stable when compared to 09/23/2019. The lungs remain clear. There is still no sign of failure, pneumonia, or pleural effusion. The mediastinum is not widened. The osseous structures are intact. IMPRESSION: Stable chest. There has been no adverse change since the prior exam. Dictated by: Dictated on workstation # [id number] Dict: 09/24/19 [id number] Trans: 09/24/1955 [id number] Interpreted by: VIRGIE NIEVES MD Electronically signed by: VIRGIE NIEVES MD 09/24/19 0855 A/P: Assessment: NSVT. 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 Use lidocaine or amio, if bb not adequate * Echo to evaluate for structural heart disease * Card cath to eval for CAD. We have discussed the procedure, risks, benefits and potential complications of cardiac cath with possible ad hoc coronary intervention. She provides informed consent. * Further recs based on above studies KWAME CAMARENA Sep 24, 2019 09:03 POS
[2019-09-24] MEDS ORDERED: SPIR50TA4 PO (09:18)
[2019-09-24] MEDS ORDERED: LEVO137T2 PO (09:18)
--- NOTE | 2019-09-24 09:19 | NUR ---
SPOKE WITH THE PATIENT ABOUT HER MEDICATIONS. SHE HAD HER BOTTLES WITH HER AND VERIFIED HOW SHE TAKES THEM. I COMPARED IT WITH THE EXT MED HX. HER SPIRONOLACTONE 50MG WAS FILLED #30 09-12-19 DAILY - SHE STATES YESTERDAY AT HER APPOINTMENT SHE WAS TOLD TO INCREASE THIS TO TWO TABS DAILY. I UPDATED THE MED REC TO REFLECT THAT NEW DOSE.
[2019-09-24] MEDS ORDERED: meTOproloL SUCCINATE 50 MG (TOPROL XL) TAB PO NR ×2 (09:45→13:30)
[2019-09-24] MEDS ORDERED: NS IV 1000 ML 0 ML ONE (10:41)
[2019-09-24] MEDS ORDERED: LIDOCAINE 1% INJ 20 ML 20 ML VIAL ONE (10:41)
[2019-09-24] MEDS ORDERED: HEParin (CATH LAB) 2,000 ML IV ONE (10:41)
[2019-09-24] MEDS ORDERED: fentaNYL INJECTION 100 MCG/2 ML AMP ONE (11:50)
[2019-09-24] MEDS ORDERED: MIDAZOLAM 5 MG/5 ML (VERSED) VIAL ONE (11:50)
--- NOTE | 2019-09-24 12:45 | Cardiac Procedure Note-CS/ASA ---
Pre-Procedure Note Pre-Op Procedure Note H&P Reviewed The H&P was reviewed, patient examined and no changes noted. Date H&P Reviewed: Sep 24, 2019 Time H&P Reviewed: 12:45 Conscious Sedation Pre-Proced Time 12:45 ASA Score 3 For ASA 3 and 4: Consider anesthesia and medical clearance. Also, for patients with a history of failed moderate sedation consider anesthesia. Airway Lungs Heart ASA score ASA 1: a normal healthy patient ASA 2: a patient with a mild systemic disease (mid diabetes, controlled hypertension, obesity ASA 3: a patient with a severe systemic disease that limits activity (angina, COPD, prior Myocardial infarction) ASA 4: a patient with an incapacitating disease that is a constant threat to life (CHF, renal failure) ASA 5: a moribund patient not expected to survive 24 hrs. (ruptured aneurysm) ASA 6: a declared brain- patient whose organs are being harvested. For emergent operations, add the letter E after the classification Mallampati Classification Grade 3 Sedation Plan Analgesia, Amnesia, Plan communicated to team members, Discussed options with patient/fam, Discussed risks with patient/fam The patient is an appropriate candidate to undergo the planned procedure, sedation, and anesthesia. The patient immediately re-assessed prior to indication. ALISA MORENO MD FACP FAC CCDS Sep 24, 2019 12:45 POS
[2019-09-24] MEDS ORDERED: PATIENT MAY USE OWN MEDS, ALL PO SCH (13:30)
--- NOTE | 2019-09-24 13:31 | Progress Note - Cardiology ---
Cardiology SOAP Progress Note Subjective: Feels well No cp or palp or syncope or any new symptoms Wishes to go home Objective: I&O/Vital Signs 09/24/19 09/24/19 09/24/19 09/24/19 02:00 03:00 04:00 04:00 Pulse 46 44 44 Resp 14 11 11 B/P (MAP) 110/71 (84) 122/79 (93) 112/72 (85) Pulse Ox 97 96 97 96 O2 Delivery Room Air Room Air Room Air Room Air 09/24/19 09/24/19 09/24/19 09/24/19 05:00 06:00 07:00 07:00 Pulse 45 43 48 49 Resp 11 11 27 B/P (MAP) 110/72 (85) 104/71 (82) 127/84 (98) Pulse Ox 97 97 96 O2 Delivery Room Air Room Air Room Air 09/24/19 09/24/19 09/24/19 09/24/19 08:00 08:00 09:00 10:00 Pulse 55 49 64 Resp 12 19 9 B/P (MAP) 134/71 (92) 124/83 (97) 126/86 (99) Pulse Ox 97 97 96 O2 Delivery Room Air Room Air Room Air Room Air 09/24/19 09/24/19 09/24/19 11:00 12:00 12:00 Temp 36.9 Pulse 48 Resp 19 B/P (MAP) 120/89 (99) Pulse Ox 96 97 O2 Delivery Room Air Room Air 09/24/19 00:00 Intake Total 600 ml Balance 600 ml Weight (Pounds): 230 Weight (Ounces): 0.0 Weight (Calculated Kilograms): 104.698031 Constitutional: AAO x 3, well-developed, well-nourished, other (obese) Respiratory: No accessory muscle use; lungs clear to percussion, lungs clear to auscultation Cardiovascular: regular rate-rhythm, S1 and S2, systolic murmur (soft VU at card base) Gastrointestional: No tender; soft; No guarding, No rebound; audible bowel sounds Extremities: other (bilateral, moderate, non-pitting edema); No clubbing, No cyanosis Neurologic/Psychiatric: oriented x 3, other (moves all limbs equally) Skin: No rash on exposed areas, No ulcerations on exposed areas Results/Procedures: Labs Laboratory Tests 09/23/19 16:40: White Blood Count 8.1, Red Blood Count 5.12, Hemoglobin 15.1, Hematocrit 44, Mean Corpuscular Volume 86, Mean Corpuscular Hemoglobin 30, Mean Corpuscular Hemoglobin Concent 34, Red Cell Distribution Width 13.9, Platelet Count 257, Mean Platelet Volume 10.3, Neutrophils (%) (Auto) 70, Lymphocytes (%) (Auto) 19, Monocytes (%) (Auto) 9, Eosinophils (%) (Auto) 2, Basophils (%) (Auto) 1, Neutrophils # (Auto) 5.6, Lymphocytes # (Auto) 1.5, Monocytes # (Auto) 0.7, Eosinophils # (Auto) 0.2, Basophils # (Auto) 0.0, Prothrombin Time 13.4, INR Comment 1.0, Activated Partial Thromboplast Time 25, Sodium Level 140, Potassium Level 4.2, Chloride Level 104, Carbon Dioxide Level 21, Anion Gap 15H, Blood Urea Nitrogen 13, Creatinine 1.01, Estimat Glomerular Filtration Rate 58, BUN/Creatinine Ratio 13, Glucose Level 96, Calcium Level 10.1, Magnesium Level 2.0, Total Creatine Kinase 143, Myoglobin 72.9, Troponin I < 0.028, B-Type Natriuretic Peptide 13.7, Thyroid Stimulating Hormone (TSH) 1.07, Free Thyroxine 1.28 09/24/19 03:20: White Blood Count 6.7, Red Blood Count 4.67, Hemoglobin 13.7, Hematocrit 41, Mean Corpuscular Volume 87, Mean Corpuscular Hemoglobin 29, Mean Corpuscular Hemoglobin Concent 34, Red Cell Distribution Width 14.0, Platelet Count 238, Mean Platelet Volume 9.9, Neutrophils (%) (Auto) 63, Lymphocytes (%) (Auto) 24, Monocytes (%) (Auto) 9, Eosinophils (%) (Auto) 3, Basophils (%) (Auto) 0, Neutrophils # (Auto) 4.2, Lymphocytes # (Auto) 1.6, Monocytes # (Auto) 0.6, Eosi nophils # (Auto) 0.2, Basophils # (Auto) 0.0, Sodium Level 140, Potassium Level 4.0, Chloride Level 108H, Carbon Dioxide Level 21, Anion Gap 11, Blood Urea Nitrogen 17, Creatinine 0.94, Estimat Glomerular Filtration Rate > 60, BUN/Crea tinine Ratio 18, Glucose Level 105, Calcium Level 9.2, Magnesium Level 2.0, Phosphorus Level 4.5, Triglycerides Level 158H, Cholesterol Level 165, LDL Cholesterol Direct 102, VLDL Cholesterol 32, HDL Cholesterol 40 A/P: Assessment: NSVT, suspected to be RVOT-VT, abolished with initiation of beta-satinder therapy on 09/23/19 Card cath on 09/24/19: normal coronaries, LVEF 60%, high-normal LVEDP Echo on 09/23/19: LVEF 55-60%, mild enlargement of LA, RVSP 18 mmHg Obesity with obesity-hypoventilation syndrome and SANDOVAL Normal TSH on lab of 09-23-19 Plan: * Continue with beta-satinder * Advised outpt f/u with Dr Matias next week * Return to ER for any symptoms * Advised compliance with CPAP ALISA MORENO MD [facility] CCDS Sep 24, 2019 13:31 POS
[2019-09-24] MEDS ORDERED: METO100T6 PO (13:33)
--- NOTE | 2019-09-24 13:34 | Discharge Inst-Post CATH ---
Discharge Inst-CATH/EP Post Cardiac Cath/EP D/C Inst Follow Up/Plan F/u with Dr Matias next week ACTIVITY * Go Home directly and rest. * Limit activity of the leg (or wrist if it was used) for 7 days including aerobics, swimming, jogging, bicycling, etc. * Restrict stair-climbing for 7 days if possible, if not, climb up with your non -cath leg, then bring together on the same step. * Avoid lifting, pushing, pulling or excessive movement of the affected extr emity for 7 days. * Customary sexual activity may be resumed after 2 days-use caution not to use a position that strains or causes pain to the affected extremity. * No driving for 24 hours. * NO SMOKING. * Avoid straining for bowel movements for 7 days. * Gentle walking on level ground is allowed. * Returning to work will depend on the type of procedure and the results. Your doctor will discuss this with you. CALL YOUR DOCTOR FOR ANY OF THE FOLLOWING: *If bleeding from the puncture site occurs- Apply gentle pressure to site with clean cloth and call your doctor or EMS. * If a knot or lump forms under the skin, increases in size, or causes pain. * If bruising appears to be worsening or moving further down your leg instead of disappearing. * Temperature above 101 F. CARE OF YOUR GROIN INCISION; * Bruising or purple discoloration of the skin near the puncture site is common. * You may shower only, no bathtub bathing for 5 days. Be careful to avoid slipping as your leg may feel stiff. * If a closure device was used on your femoral artery, please see the attached guide regarding care of the device and your leg. * Leave dressing on FOR 24 hours. CARE OF YOUR WRIST INCISION; * Bruising or purple discoloration of the skin near the puncture site is common. * You may shower. * DO NOT submerge wrist. * Leave dressing on FOR 24 hours. ALISA MORENO MD [facility] Sep 24, 2019 13:34 POS
[2019-09-24] MEDS ORDERED: ACETAMINOPHEN 325 MG TABLET PO PRN (15:30)
[2019-09-24] MEDS ORDERED: ACETAMINOPHEN 325 MG TABLET PO NR (15:30)
--- NOTE | 2019-09-24 15:36 | CARDIAC CATHETERIZATION ---
DATE OF SERVICE: 09/23/2019 The patient is a 53-year-old lady, who has a history of palpitations and was found to have runs of nonsustained ventricular tachycardia on electrocardiography. This has responded well to beta-satinder therapy without any significant recurrence of ventricular tachycardia. She has chronic exertional shortness of breath. Cardiac catheterization and coronary angiography was recommended to exclude coronary artery disease as the cause of her nonsustained ventricular tachycardia. Informed consent was obtained. DESCRIPTION OF PROCEDURE: She was brought to the cardiac catheterization laboratory in a fasting state. Right groin was prepared and draped in the usual sterile fashion. Lidocaine 1% was used for local anesthesia. Modified Seldinger technique was used to advance a 5-Kittitian sheath in right femoral artery. A 5-Kittitian JL4 catheter was used for left coronary angiography. A 5-Kittitian JR4 catheter for right coronary angiography, 5-Kittitian pigtail catheter was used for left heart catheterization and left ventricular angiography. The pigtail catheter was pulled back to the aortic root and aortic root angiography was performed. This was to make sure that the patient did not have any anomalous coronary vessels that had not been seen on selective coronary angiography. The catheter was then removed. Angiography of the right femoral artery was carried out through the sheath. Mynx was used to achieve hemostasis. She tolerated the procedure well. HEMODYNAMICS: Left ventricular end-diastolic pressure following coronary angiography was 13 mmHg. There was no significant pressure gradient on pullback across the aortic valve. Ascending aortic pressure was 125/68 with a mean of 94 mmHg. CORONARY ANGIOGRAPHY: Left main coronary artery is free of significant disease. Left anterior descending artery is free of significant disease. Left circumflex artery is codominant with the right coronary artery and is free of significant disease. Right coronary artery is of small caliber, is codominant with the left circumflex and does not exhibit any significant disease. LEFT VENTRICULAR ANGIOGRAPHY: Left ventricular angiography was carried out in the right anterior oblique projection. Global left ventricular systolic function normal. No regional wall motion abnormality was seen. Left ventricular ejection fraction is approximately 60%. AORTIC ROOT ANGIOGRAPHY: Aortic root angiography did not indicate any significant thoracic aortic aneurysm or dissection. No anomalous coronary vessels are seen. Aortic valve leaflets exhibit good leaflet excursion. There is no significant aortic regurgitation. CONCLUSIONS: 1. Angiographically normal coronary arteries. 2. Normal global left ventricular systolic function with ejection fraction of 60%. 3. Left ventricular end-diastolic pressure at the high end of normal. DISCUSSION AND RECOMMENDATIONS: Based on the results of the study, her arrhythmia does not appear to be of coronary origin. Echocardiography has also not indicated any significant structural heart disease. 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 Ventricular tachycardia that has been abolished by initiation of beta-satinder therapy. This is to be continued and she has been advised to follow up with Dr. Matias, regular compensation intern, as soon as possible for further evaluation and treatment. Job ID: [id number] DocumentID: [id number] Dictated Date: 09/24/2019 13:12:58 Returned Materials Inspector Date: 09/24/2019 15:36:08 Dictated By: ALISA MORENO MD, MA, FACP, FACC,
--- NOTE | 2019-09-24 17:49 | Short Stay Summary ---
History of Present Illness History of Present Illness Reason for visit/HPI This is a 53 year old female who had an episode of chest pain over the weekend. She presented to my office and reported this episode to my nurse practitioner who sent her for an EKG. The EKG showed a possible run of V Tach so she was sent directly to the ER. She was initially started on a lidocaine drip but after review of her EKG and telemetry strips, the knocker off felt this was likely a reentrant tachycardia and she was switched to metoprolol and it was decided to admit her to the ICU for observation and further workup. Date of Admission Sep 23, 2019 at 18:11 Date of Discharge Sep 24, 1019 Time Seen by Provider: 17:47 Attending Physician Radha Goodson DO Admitting Physician Radha Goodson DO Consult Allergies and Home Medications Allergies Coded Allergies: Penicillins (Verified Allergy, Unknown, 01/12/09) Sulfa (Sulfonamide Antibiotics) (Verified Allergy, Unknown, 01/12/09) Home Medications Levothyroxine Sodium 137 Mcg Tablet, 137 MCG PO DAILY, (Reported) Metoprolol Succinate 100 Mg Tab.er.24h, 100 MG PO DAILY Prescribed by: ALISA DAVIS on 09/24/19 1333 Spironolactone 50 Mg Tablet, 100 MG PO DAILY, (Reported) TAKES 2 (50MG) TABLETS Patient Home Medication List Home Medication List Reviewed: Yes Past Gczjvfa-Pxrswk-Shuwuo Hx Patient Social History Marrital Status: Employed/Student: employed Alcohol Use: Denies Use Recreational Drug Use: No Smoking Status: Never a Smoker 2nd Hand Smoke Exposure: No Recent Foreign Travel: No Contact w/other who traveled: No Recent Hopitalizations: No Recent Infectious Disease Expo: No Immunizations Up To Date Date of Influenza Vaccine: Jul 29, 2019 Seasonal Allergies Seasonal Allergies: Yes Surgeries Yes (FOOT SURGERY; X3; BREAST MASS; HYST/BSO) Breast, Section, Gallbladder, Hysterectomy, Orthopedic Respiratory Yes Currently Using CPAP: No Cardiovascular Yes (hx of PVC's) Chronic Edema/Swelling, Hypertension Neurological Yes (febrile seizure when little) Seizure Disorder 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 System Hx 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 Disorders: Yes (AUB) Sexually Transmitted Disease: No 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 Genitourinary No Gastrointestinal Yes Gastroesophageal Reflux, Ulcer Musculoskeletal Yes Chronic Back Pain Endocrine History of Endocrine Disorders: Yes Endocrine Disorders: Hypothyroidsim HEENT History of HEENT Disorders: No Cancer No Psychosocial History of Psychiatric Problem: No Integumentary History of Skin or Integumenta: No Blood Transfusions History of Blood Disorders: Yes (ANEMIA) Family Medical History Significant Family History: Cancer Family Hx: Arthritis 19 MOTHER Asthma 19 MOTHER Diabetes mellitus 19 FATHER FH: breast cancer 19 MOTHER No Family History of: AIDS Alcoholism Cancer of mouth Cardiovascular disease Colon cancer Completed stroke Dementia Drug abuse Hypertension Kidney disease Myocardial infarction Parkinson's disease Prostate cancer Psychosocial problem Respiratory disorder Seizure disorder Severe allergy Thyroid disease Review of Systems Constitutional: malaise, weight gain EENTM: No see HPI, No no symptoms reported, No ear discharge, No hearing loss, No ear pain, No blurred vision, No double vision, No eye pain, No tearing, No vision loss, No dental problems, No hoarseness, No mouth pain, No mouth swelling, No epistaxis, No nose congestion, No nose pain, No throat pain, No throat swelling, No other Respiratory: No no symptoms reported, No see HPI, No cough, No dyspnea on exertion, No hemoptysis, No orthopnea, No phlegm, No short of breath, No stridor, No wheezing, No other Cardiovascular: chest pain, edema Gastrointestinal: No RUQ, No LUQ, No RLQ, No LLQ, No no symptoms reported, No see HPI, No abdominal pain, No constipation, No diarrhea, No dysphagia, No hematemesis, No heartburn, No jaundice, No loss of appetite, No melena, No nausea, No vomiting, No other Genitourinary: No no symptoms reported, No see HPI, No decreased output, No discharge, No dysuria, No frequency, No hematuria, No hesitancy, No incontinence, No nocturia, No pain, No other Musculoskeletal: joint pain (foot pain) Skin: no symptoms reported Psychiatric/Neurological: Denies No Symptoms Reported, Denies See HPI, Denies Anxiety, Denies Depressed, Denies Emotional Problems, Denies Headache, Denies Numbness, Denies Paresthesia, Denies Pre-Existing Deficit, Denies Seizure, Denies Tingling, Denies Tremors, Denies Weakness, Denies Other Physical Exam Vital Signs Vital Signs - First Documented 09/23/19 09/23/19 16:40 19:35 Temp 36.5 Pulse 73 Resp 18 B/P (MAP) 152/96 (114) Pulse Ox 98 O2 Delivery Room Air Capillary Refill : Less Than 3 Seconds Height, Weight, BMI Height: 5'3.00" Weight: 230lbs. 0.0oz. [id number]; 43.00 BMI Method:Stated General Appearance: No Apparent Distress HEENT: Normal ENT Inspection Neck: Supple Respiratory: Lungs Clear Cardiovascular: Regular Rate, Rhythm Gastrointestinal: Normal Bowel Sounds, Non Tender, Soft Rectal: Deferred Back: No CVA Tenderness Extremity: Non Tender, No Calf Tenderness, No Pedal Edema Neurologic/Psychiatric: Alert, Oriented x3 Skin: Warm/Dry Comments Laboratory Tests 09/24/19 03:20: White Blood Count 6.7, Red Blood Count 4.67, Hemoglobin 13.7, Hematocrit 41, Mean Corpuscular Volume 87, Mean Corpuscular Hemoglobin 29, Mean Corpuscular Hemoglobin Concent 34, Red Cell Distribution Width 14.0, Platelet Count 238, Mean Platelet Volume 9.9, Neutrophils (%) (Auto) 63, Lymphocytes (%) (Auto) 24, Monocytes (%) (Auto) 9, Eosinophils (%) (Auto) 3, Basophils (%) (Auto) 0, Neutrophils # (Auto) 4.2, Lymphocytes # (Auto) 1.6, Monocytes # (Auto) 0.6, Eosinophils # (Auto) 0.2, Basophils # (Auto) 0.0, Sodium Level 140, Potassium Level 4.0, Chloride Level 108H, Carbon Dioxide Level 21, Anion Gap 11, Blood Urea Nitrogen 17, Creatinine 0.94, Estimat Glomerular Filtration Rate > 60, BUN/Creatinine Ratio 18, Glucose Level 105, Calcium Level 9.2, Phosphorus Level 4.5, Magnesium Level 2.0, Triglycerides Level 158H, Cholesterol Level 165, LDL Cholesterol Direct 102, VLDL Cholesterol 32, HDL Cholesterol 40 Clinical Quality Measures DVT/VTE Risk/Contraindication: Risk Factor Score Per Nursin RFS Level Per Nursing on Admit: 3=High Short Stay Diagnosis Discharge Diagnosis-Short Stay Final Discharge Diagnosis: 1. Supraventricular Tachycardia--likely re-entrant 2. Hypertension 3. Edema--improved Conclusion Labs Laboratory Tests 09/24/19 03:20: White Blood Count 6.7, Red Blood Count 4.67, Hemoglobin 13.7, Hematocrit 41, Mean Corpuscular Volume 87, Mean Corpuscular Hemoglobin 29, Mean Corpuscular Hemoglobin Concent 34, Red Cell Distribution Width 14.0, Platelet Count 238, Mean Platelet Volume 9.9, Neutrophils (%) (Auto) 63, Lymphocytes (%) (Auto) 24, Monocytes (%) (Auto) 9, Eosinophils (%) (Auto) 3, Basophils (%) (Auto) 0, Neutrophils # (Auto) 4.2, Lymphocytes # (Auto) 1.6, Monocytes # (Auto) 0.6, Eosinophils # (Auto) 0.2, Basophils # (Auto) 0.0, Sodium Level 140, Potassium Level 4.0, Chloride Level 108H, Carbon Dioxide Level 21, Anion Gap 11, Blood Urea Nitrogen 17, Creatinine 0.94, Estimat Glomerular Filtration Rate > 60, BUN/Creatinine Ratio 18, Glucose Level 105, Calcium Level 9.2, Phosphorus Level 4.5, Magnesium Level 2.0, Triglycerides Level 158H, Cholesterol Level 165, LDL Cholesterol Direct 102, VLDL Cholesterol 32, HDL Cholesterol 40 Conclusion/Plan This is a 53 year old female who had an episode of chest pain over the weekend. She presented to my office and reported this episode to my nurse practitioner who sent her for an EKG. The EKG showed a possible run of V Tach so she was sent directly to the ER. She was initially started on a lidocaine drip but after review of her EKG and telemetry strips, the knocker off felt this was likely a reentrant tachycardia and she was switched to metoprolol and it was decided to admit her to the ICU for observation and further workup. She was admitted to the ICU and monitored on telemetry. She had no further chest pain and no further SVT episodes. She did undergo a cardiac catheterization by Dr. Davis on 09/24/19 and was found to have no stenosis in her coronary arteries. It was decided she could be discharged home on metoprolol and fwup with Dr. Matias. A consult with EP was also discussed. RADHA GOODSON DO Sep 24, 2019 17:48 POS
[2019-09-25] MEDS ORDERED: meTOproloL SUCCINATE 50 MG (TOPROL XL) TAB PO SCH ×2 (09:00)
== END 2019-09-24 18:33 | disposition home or self-care (01) ==
LOC: EDUNIT# 16:35 → ER 16:36 → ICU 18:11
PROVIDERS: ADMIT Family Medicine; ATTEND Family Medicine
DX: I47.2 Ventricular tachycardia (principal); I10 Essential (primary) hypertension; K21.9 Gastro-esophageal reflux disease without esophagitis; G89.29 Other chronic pain; M54.9 Dorsalgia, unspecified; E03.9 Hypothyroidism, unspecified; E66.2 Morbid (severe) obesity with alveolar hypoventilation; R60.9 Edema, unspecified; Z88.0 Allergy status to penicillin; Z88.2 Allergy status to sulfonamides; Z79.899 Other long term (current) drug therapy; Z90.710 Acquired absence of both cervix and uterus; Z90.49 Acquired absence of other specified parts of digestive tract; Z80.3 Family history of malignant neoplasm of breast; Z83.3 Family history of diabetes mellitus; Z82.61 Family history of arthritis
CPT/HCPCS: 36415; 71045; 80048; 80061; 82550; 83735; 83874; 83880; 84100; 84439; 84443; 84484; 85025; 85610; 85730; 87081; 93041; 93306; 93458; 93567; 96374

== ENCOUNTER → 2019-09-23 | Outpatient (CLI) | payer OTHER ==
[~2019-09-23] MED LIST changes: +LEVO137T2 PO; +METO100T6 PO; +SPIR50TA4 PO
[2019-09-23 16:56] LABS: ALBUMIN 4.5 GM/DL (3.2-4.5); BILIRUBIN,TOTAL 0.5 MG/DL (0.1-1.0); CALCIUM 10.1 MG/DL (8.5-10.1); CREATININE SERUM 0.98 MG/DL (0.60-1.30); POTASSIUM 4.2 MMOL/L (3.6-5.0); TOTAL PROTEIN 7.6 GM/DL (6.4-8.2)
== END ==
LOC: CARD 15:52
PROVIDERS: ATTEND Nurse Practitioner Family
DX: M79.89 Other specified soft tissue disorders (principal); R07.9 Chest pain, unspecified
CPT/HCPCS: 36415; 80053; 85379; 93005

== ENCOUNTER 2019-10-23 14:45 | Emergency (ER) | payer OTHER ==
[~2019-10-23] VITALS: Ht 162 cm; Wt 118.0 kg
[~2019-10-23 14:45] MED LIST changes: +LEVO137T2 PO; +METO100T6 PO; +SPIR50TA4 PO
[2019-10-23] MEDS ORDERED: ANTACID SUSP 30 ML UDC (MYLANTA) PO ONE (15:00)
[2019-10-23] MEDS ORDERED: LIDOCAINE 2% VISCOUS 15 ML UDC PO ONE (15:00)
[2019-10-23] MEDS ORDERED: ASPIRIN 325 MG (5 GR) TABLET PO ONE (15:00)
[2019-10-23] MEDS ORDERED: KETOROLAC 30 MG/ML VIAL IVP ONE (15:00)
[2019-10-23 15:04] LABS: BASOPHILS % (AUTO) 0 % (0-10); EOSINOPHILS # (AUTO) 0.2 10^3/uL (0.0-0.3); EOSINOPHILS % (AUTO) 3 % (0-10); HEMATOCRIT 41 % (35-52); HEMOGLOBIN 13.7 G/DL (11.5-16.0); LYMPHOCYTES # (AUTO) 1.7 X 10^3 (1.0-4.0); LYMPHOCYTES % (AUTO) 20 % (12-44); MEAN CORPUSCULAR HEMOGLOBIN 29 PG (25-34); MEAN CORPUSCULAR HGB CONC 34 G/DL (32-36); MEAN CORPUSCULAR VOLUME 88 FL (80-99); MEAN PLATELET VOLUME 10.5 FL (7.4-10.4); MONOCYTES # (AUTO) 0.6 X 10^3 (0.0-1.0); MONOCYTES % (AUTO) 7 % (0-12); NEUTROPHILS # (AUTO) 5.9 X 10^3 (1.8-7.8); NEUTROPHILS % (AUTO) 70 % (42-75); PLATELET COUNT 225 10^3/uL (130-400); RED CELL DISTRIBUTION WIDTH 13.8 % (10.0-14.5); WHITE BLOOD COUNT 8.5 10^3/uL (4.3-11.0)
[2019-10-23 15:17] LABS: PROTHROMBIN TIME PATIENT 13.3 SEC (12.2-14.7)
--- NOTE | 2019-10-23 15:17 | Diagnostic Imaging Report ---
INDICATION: Chest pain Upright portable AP view of the chest is obtained with comparison made study of 09/24/2019. FINDINGS: Heart size and pulmonary vascularity are within normal limits, and the lungs are clear, bilaterally. IMPRESSION: Unremarkable chest. Dictated by: Dictated on workstation # [id number]
[2019-10-23 15:23] LABS: BILIRUBIN,TOTAL 0.4 MG/DL (0.1-1.0); CALCIUM 9.3 MG/DL (8.5-10.1); CREATININE SERUM 1.07 MG/DL (0.60-1.30); POTASSIUM 3.9 MMOL/L (3.6-5.0); TOTAL PROTEIN 7.4 GM/DL (6.4-8.2)
--- NOTE | 2019-10-23 15:34 | ED Cardiac General ---
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 Source: patient Exam Limitations: no limitations History of Present Illness Date Seen by Provider: Oct 23, 2019 Time Seen by Provider: 15:00 Initial Comments To ER with central chest pain described as sharp that radiates straight through to her back and began 30 minutes prior to arrival. Started after she had finished mopping the floor. History of chest pain, recently had a cardiac catheterization by Dr. Thomas and was told that everything was normal she states. She denies shortness of breath. She did have some nausea and epigastric abdominal discomfort prior to arrival. Timing/Duration: 1/2 hour Severity: moderate Prior CP/Workup: no prior chest pain NTG SL COMMUNITY DEVELOPMENT TECHNICIAN: No ASA po COMMUNITY DEVELOPMENT TECHNICIAN: No Allergies and Home Medications Allergies Coded Allergies: Penicillins (Verified Allergy, Unknown, 01/12/09) Sulfa (Sulfonamide Antibiotics) (Verified Allergy, Unknown, 01/12/09) Home Medications Levothyroxine Sodium 137 Mcg Tablet, 137 MCG PO DAILY, (Reported) Metoprolol Succinate 100 Mg Tab.er.24h, 100 MG PO DAILY Prescribed by: ALISA MORENO on 09/24/19 1333 Patient Home Medication List Home Medication List Reviewed: Yes Review of Systems Review of Systems Constitutional: see HPI EENTM: No Symptoms Reported Respiratory: No Symptoms Reported Cardiovascular: See HPI, Chest Pain Gastrointestinal: See HPI, Abdominal Pain; Denies Diarrhea; Nausea Genitourinary: No Symptoms Reported Musculoskeletal: no symptoms reported Skin: no symptoms reported Psychiatric/Neurological: No Symptoms Reported Endocrine: No Symptoms Reported Hematologic/Lymphatic: No Symptoms Reported Past Pfgdasf-Hnkros-Pqxfoo Hx Patient Social History Alcohol Use: Occasionally Uses Recreational Drug Use: No Smoking Status: Never a Smoker 2nd Hand Smoke Exposure: No Recent Foreign Travel: No Contact w/Someone Who Travel: No Recent Infectious Disease Expo: No Recent Hopitalizations: No Immunizations Up To Date Date of Influenza Vaccine: Jul 29, 2019 Seasonal Allergies Seasonal Allergies: Yes Past Medical History Surgeries: Yes (FOOT SURGERY; X3; BREAST MASS; HYST/BSO) Breast, Section, Gallbladder, Hysterectomy, Orthopedic Respiratory: Yes Sleep Apnea Currently Using CPAP: No Cardiac: Yes (hx of PVC's, CATH LAST WEEK BY TIFFANIE) Chronic Edema/Swelling, Hypertension Neurological: Yes (febrile seizure when little) Seizure Disorder 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 Disorders: 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 (AUB) 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 Sexually Transmitted Disease: No Genitourinary: No Gastrointestinal: Yes Gastroesophageal Reflux, Ulcer Musculoskeletal: Yes Chronic Back Pain Endocrine: Yes Hypothyroidsim HEENT: No Cancer: No Psychosocial: No Integumentary: No Blood Disorders: Yes (ANEMIA) Family Medical History Arthritis 19 MOTHER Asthma 19 MOTHER Diabetes mellitus 19 FATHER FH: breast cancer 19 MOTHER No Family History of: AIDS Alcoholism Cancer of mouth Cardiovascular disease Colon cancer Completed stroke Dementia Drug abuse Hypertension Kidney disease Myocardial infarction Parkinson's disease Prostate cancer Psychosocial problem Respiratory disorder Seizure disorder Severe allergy Thyroid disease Cancer Physical Exam Vital Signs Vital Signs - First Documented 10/23/19 14:52 Temp 37.0 Pulse 70 Resp 16 B/P (MAP) 156/90 (112) Pulse Ox 99 O2 Delivery Room Air Capillary Refill : Less Than 3 Seconds Height, Weight, BMI Height: 5'3.00" Weight: 230lbs. 0.0oz. [id number]; 44.00 BMI Method:Stated General Appearance: No Apparent Distress, WD/WN HEENT: PERRL/EOMI, TMs Normal Respiratory: No Accessory Muscle Use, No Respiratory Distress, Other (central chest at the sternum is very tender to palpation, this does reproduce the pain. EKG shows a sinus rhythm rate of [address] segment changes.) Cardiovascular: Regular Rate, Rhythm, Normal Peripheral Pulses Gastrointestinal: Normal Bowel Sounds, Non Tender, Soft Neurologic/Psychiatric: Alert, Oriented x3 Skin: Normal Color, Warm/Dry Progress/Results/Core Measures Results/Orders Lab Results Laboratory Tests Test 10/23/19 14:55 10/23/19 16:48 10/23/19 17:20 Range/Units White Blood Count 8.5 4.3-11.0 10^3/uL Red Blood Count 4.66 4.35-5.85 10^6/uL Hemoglobin 13.7 11.5-16.0 G/DL Hematocrit 41 35-52 % Mean Corpuscular Volume 88 80-99 FL Mean Corpuscular Hemoglobin 29 25-34 PG Mean Corpuscular Hemoglobin Concent 34 32-36 G/DL Red Cell Distribution Width 13.8 10.0-14.5 % Platelet Count 225 130-400 10^3/uL Mean Platelet Volume 10.5 H 7.4-10.4 FL Neutrophils (%) (Auto) 70 42-75 % Lymphocytes (%) (Auto) 20 12-44 % Monocytes (%) (Auto) 7 0-12 % Eosinophils (%) (Auto) 3 0-10 % Basophils (%) (Auto) 0 0-10 % Neutrophils # (Auto) 5.9 1.8-7.8 X 10^3 Lymphocytes # (Auto) 1.7 1.0-4.0 X 10^3 Monocytes # (Auto) 0.6 0.0-1.0 X 10^3 Eosinophils # (Auto) 0.2 0.0-0.3 10^3/uL Basophils # (Auto) 0.0 0.0-0.1 10^3/uL Prothrombin Time 13.3 12.2-14.7 SEC INR Comment 1.0 0.8-1.4 Activated Partial Thromboplast Time 26 24-35 SEC Sodium Level 142 135-145 MMOL/L Potassium Level 3.9 3.6-5.0 MMOL/L Chloride Level 108 H 98-107 MMOL/L Carbon Dioxide Level 24 21-32 MMOL/L Anion Gap 10 5-14 MMOL/L Blood Urea Nitrogen 15 7-18 MG/DL Creatinine 1.07 0.60-1.30 MG/DL Estimat Glomerular Filtration Rate 54 BUN/Creatinine Ratio 14 Glucose Level 121 H 70-105 MG/DL Calcium Level 9.3 8.5-10.1 MG/DL Corrected Calcium 9.3 8.5-10.1 MG/DL Magnesium Level 2.0 1.6-2.4 MG/DL Total Bilirubin 0.4 0.1-1.0 MG/DL Aspartate Amino Transf (AST/SGOT) 82 H 5-34 U/L Alanine Aminotransferase (ALT/SGPT) 108 H 0-55 U/L Alkaline Phosphatase 126 40-136 U/L Myoglobin 80.9 10.0-92.0 NG/ML Troponin I < 0.028 < 0.028 <0.028 NG/ML Total Protein 7.4 6.4-8.2 GM/DL Albumin 4.0 3.2-4.5 GM/DL Lipase 21 8-78 U/L Urine Color YELLOW Urine Clarity CLEAR Urine pH 6.0 5-9 Urine Specific [place] 1.010 L 1.016-1.022 Urine Protein NEGATIVE NEGATIVE Urine Glucose (UA) NEGATIVE NEGATIVE Urine Ketones NEGATIVE NEGATIVE Urine Nitrite NEGATIVE NEGATIVE Urine Bilirubin NEGATIVE NEGATIVE Urine Urobilinogen 0.2 < = 1.0 MG/DL Urine Leukocyte Esterase NEGATIVE NEGATIVE Urine RBC (Auto) NEGATIVE NEGATIVE Urine RBC NONE /HPF Urine WBC NONE /HPF Urine Crystals NONE /LPF Urine Bacteria TRACE /HPF Urine Casts NONE /LPF Urine Mucus NEGATIVE /LPF Urine Culture Indicated NO My Orders Orders - ESTRELLA SILVA APRN Cbc With Automated Diff (10/23/19 14:45) Magnesium (10/23/19 14:45) Chest 1 View, Ap/Pa Only (10/23/19 14:45) Ekg Tracing (10/23/19 14:45) Comprehensive Metabolic Panel (10/23/19 14:45) Myoglobin Serum (10/23/19 14:45) Protime With Inr (10/23/19 14:45) Partial Thromboplastin Time (10/23/19 14:45) O2 (10/23/19 14:45) Monitor-Rhythm Ecg Trace Only (10/23/19 14:45) Lipid Panel (10/24/19 06:00) Ed Iv/Invasive Line Start (10/23/19 14:45) Troponin I (10/23/19 14:45) Aspirin Tablet (Aspirin Tablet) (10/23/19 15:00) Ketorolac Injection (Toradol Injection) (10/23/19 15:00) Antacid Suspension (Mylanta Suspension (10/23/19 15:00) Lidocaine 2% Viscous 15 Ml (Xylocaine Vi (10/23/19 15:00) Lipase (10/23/19 15:35) Troponin I (10/23/19 16:39) Ua Culture If Indicated (10/23/19 17:45) Medications Given in ED Current Medications Medications Dose Ordered Sig/Larry Route Start Time Stop Time Status Last Admin Dose Admin Al Hydrox/Mg Hydrox/Simethicone 30 ml ONCE ONCE PO 10/23/19 15:00 10/23/19 15:01 DC 10/23/19 15:12 30 ML Aspirin 325 mg ONCE ONCE PO 10/23/19 15:00 10/23/19 15:01 DC 10/23/19 15:09 325 MG Ketorolac Tromethamine 15 mg ONCE ONCE IVP 10/23/19 15:00 10/23/19 15:01 DC 10/23/19 15:10 15 MG Lidocaine HCl 10 ml ONCE ONCE PO 10/23/19 15:00 10/23/19 15:01 DC 10/23/19 15:12 10 ML Vital Signs/I&O 10/23/19 14:52 Temp 37.0 Pulse 70 Resp 16 B/P (MAP) 156/90 (112) Pulse Ox 99 O2 Delivery Room Air Blood Pressure Mean: 112 Departure Communication (Admissions) Repeat troponin negative. She has vomited once, states she thinks she has acid reflux. I'll put her on proton pump inhibitor and sent home of Zofran. Impression Primary Impression: Chest wall pain Additional Impression: Gastroesophageal reflux disease Disposition: 01 HOME, SELF-CARE Condition: Improved Departure-Patient Inst. Decision time for Depature: 18:26 Referrals: DESIREE VARGAS DO (PCP/Family) Primary Care Physician Patient Instructions: Acid Reflux (Gastroesophageal Reflux Disease) During Add. Discharge Instructions: 1. Nausea medicine as directed 2. 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 Follow-up with your doctor next week. Scripts Pantoprazole Sodium (Protonix) 40 Mg Tablet. 40 MG PO DAILY, #20 TAB Prov: ESTRELLA SILVA APRN 10/23/19 ESTRELLA SILVA APRN Oct 23, 2019 15:34
[2019-10-23 17:51] LABS: BILIRUBIN,URINE NEGATIVE (NEGATIVE); CLARITY,URINE CLEAR; COLOR,URINE YELLOW; GLUCOSE, URINE (UA) NEGATIVE (NEGATIVE); KETONES,URINE NEGATIVE (NEGATIVE); LEUKOCYTE ESTERASE ,URINE NEGATIVE (NEGATIVE); NITRITE,URINE NEGATIVE (NEGATIVE); PROTEIN,URINE NEGATIVE (NEGATIVE)
[2019-10-23 18:18] LABS: BACTERIA,URINE TRACE /HPF
[2019-10-23] MEDS ORDERED: RX-ONDANSETRON 4 MG ODT (ZOFRAN) PPK #4 PO STA (18:24)
[2019-10-23] MEDS ORDERED: PANT40TA2 PO (18:27)
[2019-10-23 18:32] VITALS: BP 150/99
== END 2019-10-23 18:32 | disposition home or self-care (01) ==
LOC: EDUNIT# 14:45 → ER 14:46
DX: R07.89 Other chest pain (principal); K21.9 Gastro-esophageal reflux disease without esophagitis; I10 Essential (primary) hypertension; G40.909 Epilepsy, unspecified, not intractable, without status epilepticus; E03.9 Hypothyroidism, unspecified; D64.9 Anemia, unspecified; Z95.9 Presence of cardiac and vascular implant and graft, unspecified; Z88.0 Allergy status to penicillin; Z88.2 Allergy status to sulfonamides; Z90.710 Acquired absence of both cervix and uterus; Z90.722 Acquired absence of ovaries, bilateral; Z80.3 Family history of malignant neoplasm of breast
CPT/HCPCS: 36415; 71045; 80053; 81000; 83690; 83735; 83874; 84484; 85025; 85610; 85730; 93005; 93041; 96374

== ENCOUNTER → 2020-08-23 | Outpatient (CLI) | payer OTHER ==
[~2020-08-23] MED LIST changes: -METO-387 PO; +MTP25TSR PO; +OMEP40CA27 PO; -OMEP40CA36 PO; +PANT40TA2 PO
== END ==
LOC: RAD 07:30
PROVIDERS: ATTEND Family Medicine
DX: Z12.31 Encounter for screening mammogram for malignant neoplasm of breast (principal); Z53.9 Procedure and treatment not carried out, unspecified reason

== ENCOUNTER → 2020-11-01 | Outpatient (CLI) | payer OTHER ==
--- NOTE | 2020-11-01 10:14 | Diagnostic Imaging Report ---
HISTORY: Low back pain with radiculopathy. Injury. COMPARISON: None. TECHNIQUE: Three views of the lumbar spine. FINDINGS: There is grade 1 anterolisthesis at L4-L5 measuring about 8 mm. There is grade 1 retrolisthesis at L5-S1 measuring about 8 mm. The vertebral body heights are preserved. There is mild disc height loss at L4-L5 and L5-S1. There is facet arthropathy in the lower lumbar spine. No acute fracture is seen. The bilateral sacroiliac joints are patent. Surgical clips are seen in the right abdomen. IMPRESSION: Mild degenerative changes in the lower lumbar spine with grade 1 spondylolisthesis at L4-L5 and L5-S1. Dictated by: Dictated on workstation # [id number]
--- NOTE | 2020-11-01 10:15 | Diagnostic Imaging Report ---
HISTORY: Injury, low back pain with radiculopathy. COMPARISON: None. TECHNIQUE: Three views of the bilateral sacroiliac joints. FINDINGS: The sacroiliac joints are patent bilaterally. No cortical erosions are seen. No acute fracture is identified. The alignment appears normal. IMPRESSION: No acute abnormality is seen in the bilateral sacroiliac joints. Dictated by: Dictated on workstation # [id number]
== END ==
LOC: RAD 09:31
PROVIDERS: ATTEND Nurse Practitioner Family
DX: S39.92XA Unspecified injury of lower back, initial encounter (principal); S29.9XXA Unspecified injury of thorax, initial encounter; M47.26 Other spondylosis with radiculopathy, lumbar region; M43.17 Spondylolisthesis, lumbosacral region
CPT/HCPCS: 72100; 72202

== ENCOUNTER → 2020-12-10 | Outpatient (CLI) | payer OTHER ==
--- NOTE | 2020-12-10 11:42 | Diagnostic Imaging Report ---
EXAM: Digital mammogram, bilateral screening. This study was compared to the prior exams of 08/13/2019, 08/12/2018 and 12/06/2016. At this time, there are no current complaints. The current study was also evaluated with a Computer Aided Detection (CAD) system. FINDINGS: The fibroglandular tissue in both breasts is heterogeneously dense. This does limit the sensitivity of this exam. Overall, there does not appear to have been any significant change when compared to the prior study. No primary or secondary sign of malignancy is noted. The well-circumscribed 2.3 cm rounded asymmetry in the upper outer aspect of the left breast seen previously is again evident and no different. The smaller 1.2 cm oval asymmetry in the lateral aspect of the right breast seen previously is also unchanged. IMPRESSION: 1. There is no radiographic evidence for malignancy. ACR category 1 ACR BI-RADS Category 1: Negative. Result letter will be mailed to the patient. Note: At least 10% of breast cancer is not imaged by mammography. Dictated by: Dictated on workstation # [id number]
== END ==
LOC: RAD 07:30
PROVIDERS: ATTEND Family Medicine
DX: Z12.31 Encounter for screening mammogram for malignant neoplasm of breast (principal)
CPT/HCPCS: 77063; 77067

== ENCOUNTER 2021-01-25 14:31 | Outpatient (RCR) | payer OTHER | END 2021-02-01 | disposition home or self-care (01) | PROVIDERS: ATTEND Nurse Practitioner Family | DX: M54.41 Lumbago with sciatica, right side (principal); M54.42 Lumbago with sciatica, left side; M25.511 Pain in right shoulder; Z90.710 Acquired absence of both cervix and uterus; Z98.890 Other specified postprocedural states | CPT/HCPCS: 97163; G0283 ==

== ENCOUNTER → 2021-01-26 | Outpatient (CLI) | payer OTHER ==
--- NOTE | 2021-01-26 16:15 | Diagnostic Imaging Report ---
INDICATION: Chronic back pain. EXAMINATION: Thoracic spine. FINDINGS: AP and lateral views of the thoracic spine show normal alignment. There are no compression fractures. There is mild spondylosis of the mid and lower thoracic spine. IMPRESSION: Mild spondylosis of the lower thoracic spine. No acute abnormality is seen. Dictated by: Dictated on workstation # [id number]
--- NOTE | 2021-01-26 16:23 | Diagnostic Imaging Report ---
INDICATION: Chronic neck and upper back pain. COMPARISON: None FINDINGS: Frontal, lateral, and open-mouth radiographic views of the cervical spine were obtained. Cervical spine is seen down to C7-T1 level on the lateral view. There is straightening of normal lordotic curvature of the cervical spine. There is however no significant anteroretrolisthesis. There is no evidence of jumped facets. Vertebral body heights are preserved. There is no acute fracture. There are mild multilevel degenerative changes, greatest at C5-C6 level where there is intervertebral disc height loss and mild anterior posterior endplate osteophyte formations. Open-mouth view shows normal C1-C2 alignment. Surrounding soft tissue structures are unremarkable. Included portions lung apices are clear. IMPRESSION: 1. No acute fracture or dislocation of the cervical spine. 2. Mild degenerative changes greatest at the C5-C6 level. Dictated by: Dictated on workstation # [id number]
== END ==
LOC: RAD
PROVIDERS: ATTEND Family Medicine
DX: M47.812 Spondylosis without myelopathy or radiculopathy, cervical region (principal); M47.814 Spondylosis without myelopathy or radiculopathy, thoracic region
CPT/HCPCS: 72040; 72072

== ENCOUNTER → 2021-09-07 | Outpatient (CLI) | payer BC, OTHER ==
[~2021-09-07] MED LIST changes: -OMEP40CA27 PO; +OMEP40CA6 PO
[2021-09-07 17:11] LABS: POTASSIUM 4.1 MMOL/L (3.6-5.0)
[2021-09-07 17:12] LABS: CALCIUM 9.7 MG/DL (8.5-10.1)
[2021-09-07 17:16] LABS: CREATININE SERUM 1.01 MG/DL (0.60-1.30)
== END ==
LOC: LAB 16:25
PROVIDERS: ATTEND Family Medicine
DX: R60.9 Edema, unspecified (principal)
CPT/HCPCS: 36415; 80048

== ENCOUNTER → 2022-03-16 | Outpatient (CLI) | payer BC ==
[2022-03-16 06:32] LABS: BASOPHILS # (AUTO) 0.1 10^3/uL (0.0-0.1); BASOPHILS % (AUTO) 1 % (0-10); EOSINOPHILS # (AUTO) 0.2 10^3/uL (0.0-0.3); EOSINOPHILS % (AUTO) 3 % (0-10); HEMATOCRIT 44 % (35-52); HEMOGLOBIN 14.8 g/dL (11.5-16.0); LYMPHOCYTES # (AUTO) 1.8 10^3/uL (1.0-4.0); LYMPHOCYTES % (AUTO) 23 % (12-44); MEAN CORPUSCULAR HEMOGLOBIN 31 pg (25-34); MEAN CORPUSCULAR HGB CONC 34 g/dL (32-36); MEAN CORPUSCULAR VOLUME 91 fL (80-99); MEAN PLATELET VOLUME 9.7 fL (9.0-12.2); MONOCYTES # (AUTO) 0.5 10^3/uL (0.0-1.0); MONOCYTES % (AUTO) 6 % (0-12); NEUTROPHILS # (AUTO) 5.4 10^3/uL (1.8-7.8); NEUTROPHILS % (AUTO) 67 % (42-75); PLATELET COUNT 262 10^3/uL (130-400)
[2022-03-16 06:46] LABS: ALBUMIN 4.2 GM/DL (3.2-4.5)
[2022-03-16 06:48] LABS: CALCIUM 9.5 MG/DL (8.5-10.1)
[2022-03-16 06:49] LABS: TOTAL PROTEIN 7.6 GM/DL (6.4-8.2)
[2022-03-16 06:51] LABS: BILIRUBIN,TOTAL 0.6 MG/DL (0.1-1.0)
[2022-03-16 06:52] LABS: CREATININE SERUM 1.27 MG/DL (0.60-1.30)
[2022-03-16 08:36] LABS: FREE T4 (FREE THYROXINE) 0.4 NG/DL (0.70-1.48)
== END ==
LOC: LAB 06:13
PROVIDERS: ATTEND Family Medicine
DX: E03.9 Hypothyroidism, unspecified (principal); I10 Essential (primary) hypertension; E78.2 Mixed hyperlipidemia
CPT/HCPCS: 36415; 80053; 80061; 84439; 84443; 85025

== ENCOUNTER → 2023-03-24 | Outpatient (CLI) | payer BC ==
--- NOTE | 2023-03-24 11:52 | Diagnostic Imaging Report ---
Indication: Fall and knee pain. Time of Exam: 11:33 AM 3 views of the right knee were obtained. Alignment is normal. There is mild medial compartmental joint space narrowing. The articular surfaces are smooth. No fracture, dislocation or effusion is identified identified. Impression: Mild degenerative changes. No acute bony abnormality is detected. Dictated by: Dictated on workstation # [id number]
== END ==
LOC: RAD 11:21
PROVIDERS: ATTEND Nurse Practitioner Family
DX: M17.11 Unilateral primary osteoarthritis, right knee (principal); W19.XXXA Unspecified fall, initial encounter
CPT/HCPCS: 73562